=== PATIENT | female | born 1950 | race Caucasian/White ===

== ENCOUNTER 2019-05-25 09:48 | Inpatient (IN) | payer MEDICAID, MEDICARE ==
[~2019-05-25] VITALS: Ht 149.9 cm; Wt 98.2 kg
[2019-05-25] VITALS (15 sets, daily range): BP systolic 102–182; BP diastolic 63–98
[2019-05-25] MEDS ORDERED: BISACODYL 10 MG SUPP (DULCOLAX) PR PRN (13:45)
[2019-05-25] MEDS ORDERED: DICL50TA6 PO (13:45)
[2019-05-25] MEDS ORDERED: ROPI1TAB2 PO (13:45)
[2019-05-25] MEDS ORDERED: VENL150C98 PO (13:45)
[2019-05-25] MEDS ORDERED: LEVO150T6 PO (13:45)
[2019-05-25] MEDS ORDERED: ONDANSETRON 4 MG/2 ML (SDV) Z0FRAN IV PRN (13:45)
[2019-05-25] MEDS ORDERED: HYDR-3812 PO (13:45)
[2019-05-25] MEDS ORDERED: BENZONATATE 100 MG (TESSALON) CAPSULE PO PRN (13:45)
[2019-05-25] MEDS ORDERED: MELATONIN 3 MG TABLET PO PRN (13:45)
[2019-05-25] MEDS ORDERED: METF-397 PO (13:45)
[2019-05-25] MEDS ORDERED: ANTACID SUSP 30 ML UDC (MYLANTA) PO PRN (13:45)
[2019-05-25] MEDS ORDERED: ACETAMINOPHEN 325 MG TABLET PO PRN (13:45)
[2019-05-25] MEDS ORDERED: ATOR10TA66 PO (13:45)
[2019-05-25] MEDS ORDERED: FURO20TA4 PO (13:45)
[2019-05-25] MEDS ORDERED: TIZA2TAB4 PO (13:45)
[2019-05-25] MEDS ORDERED: MILK OF MAGNESIA 400 MG/5 ML 30 ML UDC PO PRN (13:45)
[2019-05-25] MEDS ORDERED: AMIT25TA9 PO (13:45)
[2019-05-25] MEDS ORDERED: LISI10TA2 PO (13:45)
[2019-05-25] MEDS ORDERED: POTA10TA10 (13:45)
[2019-05-25] MEDS ORDERED: ASPI-983 PO (13:49)
[2019-05-25 13:51] LABS: BASOPHILS % (AUTO) 0 % (0-10); EOSINOPHILS % (AUTO) 0 % (0-10); HEMATOCRIT 37 % (35-52); HEMOGLOBIN 11.8 G/DL (11.5-16.0); LYMPHOCYTES # (AUTO) 0.5 X 10^3 (1.0-4.0); LYMPHOCYTES % (AUTO) 6 % (12-44); MEAN CORPUSCULAR HEMOGLOBIN 29 PG (25-34); MEAN CORPUSCULAR HGB CONC 32 G/DL (32-36); MEAN CORPUSCULAR VOLUME 93 FL (80-99); MEAN PLATELET VOLUME 9.4 FL (7.4-10.4); MONOCYTES # (AUTO) 0.2 X 10^3 (0.0-1.0); MONOCYTES % (AUTO) 2 % (0-12); NEUTROPHILS % (AUTO) 91 % (42-75); PLATELET COUNT 236 10^3/uL (130-400); RED CELL DISTRIBUTION WIDTH 14.1 % (10.0-14.5); WHITE BLOOD COUNT 7.6 10^3/uL (4.3-11.0)
[2019-05-25] MEDS ORDERED: OMEP20CA13 PO (13:51)
[2019-05-25 14:10] LABS: BASOPHILS % (MANUAL) 1 %; LYMPHOCYTES % (MANUAL) 5 %; MONOCYTES % (MANUAL) 4 %; NEUTROPHILS % (MANUAL) 90 %
[2019-05-25 14:11] LABS: RBC MORPH NORMAL
[2019-05-25] MEDS: ENOXAPARIN 40 MG/0.4 ML (LOVENOX) SYR SC SCH (14:11)
--- NOTE | 2019-05-25 14:17 | History & Physical-Hospitalist ---
History of Present Illness HPI/Chief Complaint Patient is a 68-year-old female with a past medical history of COPD, hypertension, herniated disc who presented to the emergency department at [facility] due to hypoxia. Per report she was found to be dyspneic with a respiratory rate in the 50s with oxygen saturation of 69 for EMS. She was placed on CPAP and then transitioned to BiPAP in the emergency room. This significantly helped her work of breathing. Per daughter a chest x-ray was done last week which revealed a pleural effusion for which she was given Lasix and potassium. Despite this she continued to worsen prompting evaluation this morning. Patient states that she has had a cough for a couple of months but the shortness of breath acutely worsened this morning. She is still on BiPAP but states she is feeling better and breathing better. Source: patient Exam Limitations: clinical condition Date Seen 05/25/19 Time Seen by a Provider: 11:15 Attending Physician Alexandro Patel MD PCP No,Local Physician Referring Physician Date of Admission May 25, 2019 at 10:44 Home Medications & Allergies Home Medications Reviewed patient Home Medication Reconciliation performed by pharmacy medication reconciliations fitness technician and/or nursing. Patients Allergies have been reviewed. Allergies Allergies Coded Allergies No Known Drug Allergies (Unverified05/25/19) Past Owgksaf-Qipfcl-Lrtzyz Hx Past Med/Social Hx: Reviewed Nursing Past Med/Soc Hx Patient Social History Recent Foreign Travel: No Contact w/other who traveled: No Review of Systems ROS-Unable to Obtain: somewhat limited by BiPAP use Constitutional: No chills, No fever Respiratory: cough, dyspnea on exertion, short of breath Cardiovascular: No chest pain, No palpitations Gastrointestinal: no symptoms reported Physical Exam Physical Exam Vital Signs Vital Signs - First Documented 05/25/19 05/25/19 05/25/19 05/25/19 05/25/19 10:38 10:59 11:00 11:05 12:00 Temp 36.4 Pulse 97 Resp 22 B/P (MAP) 102/64 (77) Pulse Ox 97 O2 Delivery NIV Bilevel O2 Flow Rate 40.00 FiO2 40 Capillary Refill : Height, Weight, BMI Height: '" Weight: lbs. oz. kg; 43.83 BMI Method: General Appearance: Chronically ill, Mild Distress, Obese HEENT: PERRL/EOMI; No Scleral Icterus (L), No Scleral Icterus (R); Other (full inspection obscured by BiPAP) Respiratory: Lungs Clear, No Accessory Muscle Use, Other (on BiPAP) Cardiovascular: Regular Rate, Rhythm, No Murmur Gastrointestinal: Normal Bowel Sounds, Soft Extremity: No Calf Tenderness, No Pedal Edema Neurologic/Psychiatric: Alert, Oriented x3, Normal Mood/Affect Skin: Normal Color, Warm/Dry Results Results/Procedures Labs Laboratory Tests 05/27/19 08:59 05/28/19 05:45 Patient resulted labs reviewed. Assessment/Plan Admission Diagnosis Acute Hypoxic Respiratory Failure Admission Status: Inpatient Order (span 2 midnights) Reason for Inpatient Admission: in respiratory failure, will take more than two midnigihts to stabilize for DC Assessment and Plan Acute Hypoxic Respiratory Failure COPD exacerbation Received Steroids at OSH Started Prednisone Pulm consulted, appreciate recs- I called and spoke with Dr Gomez about patient Procalcitonin ordered- will start abx if elevated HTN Continue home meds Hypothyroidism Continue home meds Herniated discs Continue Home pain meds Clinical Quality Measures DVT/VTE Risk/Contraindication: Risk Factor Score Per Nursin RFS Level Per Nursing on Admit: 4+=Very High ALEXANDRO PATEL MD May 25, 2019 14:17
[2019-05-25] MEDS ORDERED: RT-ALBUTEROL/IPRATROPIUM 3 ML (DUONEB) VIAL INH PRN (14:30)
[2019-05-25] MEDS: RT-ALBUTEROL/IPRATROPIUM 3 ML (DUONEB) VIAL INH SCH ×2 (19:37→21:57)
[2019-05-25] MEDS: RT-ADVAIR HFA 115/21 MCG PER PUFF IH SCH (19:37)
[2019-05-25] MEDS: AMITRIPTYLINE 25 MG (ELAVIL) TAB PO SCH (20:40)
[2019-05-25] MEDS: HYDROcodone/APAP 5 MG/325 MG (LORTAB) TAB PO PRN (23:45)
[2019-05-26] VITALS (11 sets, daily range): BP systolic 111–145; BP diastolic 62–92
[2019-05-26 03:53] LABS: ABG BASE EXCESS 6.8 MMOL/L (-2.5-2.5); ABG OXYGEN SATURATION 94 % (94-100); ABG PCO2 44 MMHG (35-45); ABG PH 7.46 (7.37-7.43); ABG PO2 72 MMHG (79-93); ABG TCO2 32.4 MMOL/L (21.0-31.0)
[2019-05-26 03:55] LABS: BASOPHILS % (AUTO) 0 % (0-10); EOSINOPHILS % (AUTO) 0 % (0-10); HEMATOCRIT 34 % (35-52); HEMOGLOBIN 10.5 G/DL (11.5-16.0); LYMPHOCYTES # (AUTO) 1.4 X 10^3 (1.0-4.0); LYMPHOCYTES % (AUTO) 11 % (12-44); MEAN CORPUSCULAR HEMOGLOBIN 29 PG (25-34); MEAN CORPUSCULAR HGB CONC 31 G/DL (32-36); MEAN CORPUSCULAR VOLUME 92 FL (80-99); MEAN PLATELET VOLUME 9.6 FL (7.4-10.4); MONOCYTES # (AUTO) 1.1 X 10^3 (0.0-1.0); MONOCYTES % (AUTO) 9 % (0-12); NEUTROPHILS # (AUTO) 9.8 X 10^3 (1.8-7.8); NEUTROPHILS % (AUTO) 80 % (42-75); PLATELET COUNT 246 10^3/uL (130-400); RED CELL DISTRIBUTION WIDTH 14.2 % (10.0-14.5); WHITE BLOOD COUNT 12.2 10^3/uL (4.3-11.0)
[2019-05-26 03:56] LABS: ALLENS TEST POSITIVE; INSPIRED O2 30% BIPAP; VENTILATOR NO
[2019-05-26] MEDS: RT-ALBUTEROL/IPRATROPIUM 3 ML (DUONEB) VIAL INH SCH ×6 (03:59→22:00)
[2019-05-26 04:18] LABS: CALCIUM 8.9 MG/DL (8.5-10.1); CREATININE SERUM 0.97 MG/DL (0.60-1.30); MAGNESIUM 1.4 MG/DL (1.6-2.4); PHOSPHORUS 2.5 MG/DL (2.3-4.7); POTASSIUM 3.7 MMOL/L (3.6-5.0)
--- NOTE | 2019-05-26 05:31 | Pulmonary Consultation ---
History of Present Illness History of Present Illness Date of Consultation 05/26/19 05:26 Time Seen by Provider: 06:50 Date of Admission History of Present Illness 68yo with hx of COPD presented to [facility] ED secondary to worsening SOB and nonproductive cough. PT was found to have acute respiratory distress and hypoxia. She was transferred to [facility] ICU for close monitoring. Pt has be en requiring BiPAP which seemed to improve symptoms. No prior episodes like this in the past. PT is currently on BiPAP and it is difficult to obtain ROS. I am consulted for pulmonary/ICU management. Allergies and Home Medications Allergies Coded Allergies: No Known Drug Allergies (Unverified , 05/25/19) Home Medications Aspirin 81 Mg Tablet.dr, 81 MG PO DAILY, (Reported) Omeprazole 20 Mg Capsule.dr, 20 MG PO DAILY, (Reported) Past Ahjeohp-Aqqwkm-Xsohyn Hx Past Med/Social Hx: Reviewed Nursing Past Med/Soc Hx Patient Social History Alcohol Use: Denies Use Recreational Drug Use: No Recent Foreign Travel: No Contact w/Someone Who Travel: No Recent Infectious Disease Expo: No Review of Systems Time Seen by Provider: 06:53 Constitutional: Chills, Weakness, Malaise; No: Fever ENT: Nose congestion Respiratory: Cough, Dry, Shortness of breath, SOB with excertion, Wheezing; No: Hemoptysis Cardiovascular: Palpitations, Orthopnea, Paroxysmal Noc. Dyspnea, Edema, Lt Headedness; No: Chest Pain Gastrointestinal: Constipation; No: Nausea, Vomiting, Abdominal Pain, Diarrhea Genitourinary: No Dysuria, No Frequency, No Incontinence Musculoskeletal: neck pain, shoulder pain, back pain; No: arm pain, hand pain Skin: No: Rash, Lesions, Jaundice, Bruising, Other Neurological: Weakness; No: Numbness, Incoordination, Change in speech, Confusion, Seizures, Other Sepsis Event Evaluation Height, Weight, BMI Height: '" Weight: lbs. oz. kg; 43.83 BMI Method: Exam Exam Vital Signs Date Time Temp Pulse Resp B/P (MAP) Pulse Ox O2 Delivery O2 Flow Rate FiO2 05/26/19 04:06 71 19 138/67 (90) 94 NIV Bilevel 30.00 05/26/19 03:00 81 22 128/62 (84) 95 NIV Bilevel 30.00 05/26/19 02:00 80 19 132/65 (87) 93 NIV Bilevel 30.00 05/26/19 01:43 82 30 97 NIV Bilevel 30.00 05/26/19 01:00 79 16 122/71 (88) 95 NIV Bilevel 25.00 05/26/19 01:00 79 05/26/19 00:00 NIV Bilevel 3.00 25 05/26/19 00:00 87 13 125/62 (83) 94 NIV Bilevel 25.00 05/25/19 23:00 94 20 137/72 (93) 95 NIV Bilevel 25.00 05/25/19 22:10 94 27 92 NIV Bilevel 25.00 05/25/19 22:00 99 24 139/66 (90) Nasal Cannula 6.00 05/25/19 21:58 98 23 95 25.00 05/25/19 21:50 101 33 Nasal Cannula 6.00 05/25/19 21:00 105 29 133/81 (98) 96 Nasal Cannula 3.00 05/25/19 20:00 101 27 141/71 (94) 91 Nasal Cannula 3.00 05/25/19 20:00 94 Nasal Cannula 3.00 30 05/25/19 19:45 36.0 05/25/19 19:44 Nasal Cannula 4.00 05/25/19 19:38 93 Nasal Cannula 3.00 05/25/19 19:00 104 30 182/98 (126) 95 Nasal Cannula 3.00 05/25/19 19:00 104 05/25/19 18:00 98 30 165/88 (113) 98 Nasal Cannula 3.00 05/25/19 18:00 98 23 165/88 (113) 93 Nasal Cannula 3.00 05/25/19 17:00 96 21 163/88 (113) 99 Nasal Cannula 3.00 05/25/19 16:00 36.0 05/25/19 16:00 94 Nasal Cannula 3.00 30 05/25/19 16:00 101 34 151/88 (109) 97 Nasal Cannula 3.00 05/25/19 15:40 95 Nasal Cannula 4.00 05/25/19 15:00 100 26 164/76 (105) 94 Nasal Cannula 3.00 05/25/19 14:00 101 33 149/74 (99) 92 Nasal Cannula 3.00 05/25/19 13:48 36.4 85 98 05/25/19 13:00 96 33 123/63 (83) 94 Nasal Cannula 4.00 05/25/19 13:00 84 05/25/19 12:00 98 NIV Bilevel 30 05/25/19 12:00 36.4 05/25/19 11:05 98 NIV Bilevel 40 05/25/19 11:00 85 45 102/64 (77) 100 NIV Bilevel 50.00 05/25/19 10:59 85 22 97 40.00 05/25/19 10:38 97 I & O 05/26/19 07:00 Intake Total 650 ml Output Total 1625 ml Balance -975 ml Height & Weight Height: '" Weight: lbs. oz. kg; 43.83 BMI Method: General Appearance: Mild Distress, Obese HEENT: PERRL/EOMI, Pharynx Normal Neck: Full Range of Motion, Non Tender, Supple Respiratory: No Accessory Muscle Use, No Respiratory Distress, Crackles, Decreased Breath Sounds, Respiratory Distress (currently on BiPAP) Results Lab Laboratory Tests 05/25/19 13:47 05/26/19 03:44 Assessment/Plan Assessment/Plan Acute respiratory failure -Continue BiPAP QHS and PRN -Check BNP -Check CTA of chest r/o PE -Check echo Atelectasis -IS -SVNs -Increase activity COPDAE -SVNS -Prednisone Leukocytosis -secondary to steroids HYpomag, hypophos -replace HTN Hypothyroidism Herniated discs ADRIA ANDREWS DO May 26, 2019 05:31
[2019-05-26] MEDS ORDERED: MAGNESIUM 1 GM/100 ML IVPB 100 ML IV SCH (06:00)
[2019-05-26] MEDS ORDERED: POTASSIUM CL 10MEQ/50ML IVPB 50 ML IV SCH (06:00)
[2019-05-26] MEDS ORDERED: HOLD METFORMIN - RECEIVED CONTRAST 20 ML VIAL IV SCH (06:00)
[2019-05-26] MEDS ORDERED: NS 100 ML (IVPB) BAG IV ONE (06:00)
[2019-05-26] MEDS ORDERED: IOHEXOL 350 MG/ML 100 ML (OMNIPAQUE 350) VIAL IV ONE (06:00)
[2019-05-26] MEDS: KCL 20 MEQ TAB (K-DUR) PO SCH ×2 (06:34→07:00)
[2019-05-26] MEDS: RT-ADVAIR HFA 115/21 MCG PER PUFF IH SCH ×2 (06:36→19:00)
--- NOTE | 2019-05-26 06:58 | Diagnostic Imaging Report ---
PROCEDURE: CT angiography of the chest with contrast. TECHNIQUE: Multiple contiguous axial images were obtained through the chest after uneventful bolus administration of intravenous contrast. 3D reconstructed CTA MIP acquisitions were also performed. Auto Exposure Controls were utilized during the CT exam to meet ALARA standards for radiation dose reduction. INDICATION: Shortness of breath. FINDINGS: There are no intraluminal pulmonary arterial filling defects. There is no evidence for pulmonary arterial embolus. Thoracic aorta is patent and nonaneurysmal. There are tiny bilateral pleural effusions of 1 cm thickness. No obvious loculation. There are dependent consolidative and atelectatic changes of the posterior sulcal portions of both lower lobes. Lungs otherwise clear. There is no pneumothorax. No lymphadenopathy. The aorta is nonaneurysmal. The visualized upper abdomen nonacute. IMPRESSION: 1. Negative for PE or acute aortic disease. 2. Pleural effusions and bibasilar dependent partial atelectasis. Dictated by: Dictated on workstation # [id number]
[2019-05-26] MEDS: MAGNESIUM 1 GM/100 ML IVPB 100 ML IV SCH ×2 (06:59→07:58)
[2019-05-26] MEDS: VENlafaxine XR 75 MG (EFFEXOR XR) CAP PO SCH (07:00)
[2019-05-26] MEDS: LEVOTHYROXINE 150 MCG (LEVOTHROID) TAB PO SCH (07:01)
[2019-05-26] MEDS: predniSONE 20 MG TAB PO SCH (07:01)
[2019-05-26] MEDS: inSUlin ASPART (NovoLOG) 1 UNIT/0.01 ML (CHARGE PER UNIT) SC SCH ×4 (07:01→21:25)
[2019-05-26] MEDS: ENOXAPARIN 40 MG/0.4 ML (LOVENOX) SYR SC SCH ×2 (07:01→17:22)
[2019-05-26] MEDS: HYDROcodone/APAP 5 MG/325 MG (LORTAB) TAB PO PRN ×3 (07:59→17:29)
[2019-05-26] MEDS: rOPINIRole 1 MG (REQUIP) TABLET PO SCH (08:00)
[2019-05-26] MEDS: FUROSEMIDE 20 MG (LASIX) TAB PO SCH (08:00)
[2019-05-26] MEDS: KCL 10 MEQ TAB (MICRO K) PO SCH (08:00)
[2019-05-26] MEDS: lisINopril 10 MG (PRINIVIL) TABLET PO SCH (08:00)
--- NOTE | 2019-05-26 08:35 | Diagnostic Imaging Report ---
INDICATION: Shortness of air with COPD exacerbation. FINDINGS: There are some bibasilar pulmonary opacities, pneumonia versus atelectasis. The heart is mildly enlarged but no gross overdistention of vascularity. IMPRESSION: Basilar pulmonary opacities favor atelectasis; however, pneumonia could not be excluded. There may also be small amounts of pleural fluid. The heart size is upper limits. No pneumothorax. Dictated by: Dictated on workstation # [id number]
[2019-05-26] MEDS ORDERED: RT-ALBUINH INH (10:25)
[2019-05-26] MEDS ORDERED: BUDE10.2 INH (10:25)
[2019-05-26] MEDS ORDERED: CALC-921 PO (10:25)
[2019-05-26] MEDS ORDERED: MICO142C TP (10:25)
[2019-05-26] MEDS ORDERED: POTA10TA36 PO (10:29)
--- NOTE | 2019-05-26 10:30 | NUR ---
UPDATED MED REC WITH MAR FROM [facility].
--- NOTE | 2019-05-26 11:00 | NUR ---
Pastoral care visit.
--- NOTE | 2019-05-26 11:55 | Progress Note - Hospitalist ---
Subjective HPI/CC On Admission Date Seen by Provider: May 26, 2019 Time Seen by Provider: 08:45 shortness of breath Subjective/Events-last exam Her shortness of breath is improved. She feels like she is getting close to her baseline. She continues to feel tired and weak. She denies fevers and chills. She denies cough. She denies abdominal pain, nausea, vomiting, diarrhea, and dysuria. Objective Exam Vital Signs Vital Signs Date Time Temp Pulse Resp B/P (MAP) Pulse Ox O2 Delivery O2 Flow Rate FiO2 05/26/19 10:36 94 Nasal Cannula 1.00 05/26/19 08:00 94 27 132/76 (94) 05/26/19 04:00 25 05/25/19 19:45 36.0 Capillary Refill : General Appearance: No Apparent Distress, WD/WN HEENT: PERRL/EOMI, Pharynx Normal Neck: Normal Inspection, Supple Respiratory: Lungs Clear, Normal Breath Sounds, No Respiratory Distress Cardiovascular: Regular Rate, Rhythm, No Edema, No Murmur Gastrointestinal: Normal Bowel Sounds, Non Tender, Soft Extremity: Normal Inspection, Non Tender, No Pedal Edema Neurologic/Psychiatric: Alert, Oriented x3 Skin: Normal Color, Warm/Dry Lymphatic: No Adenopathy Results/Procedures Lab Laboratory Tests 05/25/19 13:47 05/26/19 03:44 Patient resulted labs reviewed. Imaging: Reviewed Imaging Report Assessment/Plan Assessment and Plan Assess & Plan/Chief Complaint Acute hypoxemic respiratory failure Acute exacerbation of COPD -MAT protocol -Continue steroids -BNP elevated, obtain TTE -CT without PE -WBC elevated due to steroids, procal normal, no antibiotics needed -Pulm consulted, appreciate assistance -Transfer to floor Hypomagnesemia -Mg 1.4, replacing with IV mag sulfate Diagnosis/Problems Diagnosis/Problems (1) Acute respiratory failure with hypoxemia Status: Acute (2) Acute exacerbation of chronic obstructive pulmonary disease Status: Acute (3) Hypomagnesemia Status: Acute Clinical Quality Measures DVT/VTE Risk/Contraindication: Risk Factor Score Per Nursin RFS Level Per Nursing on Admit: 4+=Very High RAJESH GABRIEL MD May 26, 2019 11:55
--- NOTE | 2019-05-26 13:02 | NUR ---
1140 PT TRANSFERRED TO ROOM 512 VIA W/C AND 02 AT 1 LITER PER NC, ALL PERSONAL BELONGINGS SENT WITH PT.
--- NOTE | 2019-05-26 14:22 | NUR ---
report taken from Hugo Ribera RN at this time.
--- NOTE | 2019-05-26 15:00 | NUR ---
1430 2 HOUR POST PRANDIAL BLOOD SUGAR CHECKED NOTED AT 431 DR GABRIEL NOTIFIED ORDERS TO GIVE 12 UNITS INSULIN PER SSI AND GIVE A ONE TIME DOSE OF LEVEMIR 10 UNITS. ORDER ENTERED 12 UNITS GIVEN BY Clementina INFANTE RN, PT AND DAUGHTER NOTIFIED OF ORDERS THIS RN CALLED Jack GUARDADO RN AND ALSO NOTIFIED. PT TO ROOM 433 VIA W/C ACCOMPANIED BY Gayla BINGHAM RN AND David INFANTE RN. REPORT GIVEN PRIOR TO Jack GUARDADO RN.
[2019-05-26] MEDS: AMITRIPTYLINE 25 MG (ELAVIL) TAB PO SCH (21:25)
[2019-05-27] MEDS: RT-ALBUTEROL/IPRATROPIUM 3 ML (DUONEB) VIAL INH SCH ×5 (02:45→22:39)
[2019-05-27 04:27] VITALS: BP 140/60
[2019-05-27] MEDS: LEVOTHYROXINE 150 MCG (LEVOTHROID) TAB PO SCH (06:27)
[2019-05-27] MEDS: predniSONE 20 MG TAB PO SCH (06:27)
[2019-05-27] MEDS: VENlafaxine XR 75 MG (EFFEXOR XR) CAP PO SCH (06:27)
[2019-05-27] MEDS: ENOXAPARIN 40 MG/0.4 ML (LOVENOX) SYR SC SCH ×2 (06:27→17:23)
[2019-05-27] MEDS: inSUlin ASPART (NovoLOG) 1 UNIT/0.01 ML (CHARGE PER UNIT) SC SCH ×4 (06:28→20:59)
[2019-05-27] MEDS: RT-ADVAIR HFA 115/21 MCG PER PUFF IH SCH ×2 (07:18→22:30)
[2019-05-27 08:00] VITALS: BP 110/84
[2019-05-27] MEDS: lisINopril 10 MG (PRINIVIL) TABLET PO SCH (08:40)
[2019-05-27] MEDS: KCL 10 MEQ TAB (MICRO K) PO SCH (08:40)
[2019-05-27] MEDS: FUROSEMIDE 20 MG (LASIX) TAB PO SCH (08:40)
[2019-05-27] MEDS: rOPINIRole 1 MG (REQUIP) TABLET PO SCH (08:40)
--- NOTE | 2019-05-27 08:47 | Pulmonary Progress Note ---
Subjective Time Seen by a Provider: 12:56 Subjective/Events-last exam Pt is doing better. No complications noted. Sepsis Event Evaluation Height, Weight, BMI Height: '" Weight: lbs. oz. kg; 43.83 BMI Method: Exam Exam Vital Signs Date Time Temp Pulse Resp B/P (MAP) Pulse Ox O2 Delivery O2 Flow Rate FiO2 05/27/19 07:31 Nasal Cannula 2.00 05/27/19 07:23 78 Room Air 05/27/19 04:27 37.0 95 20 140/60 (86) 94 Room Air 05/27/19 02:47 Room Air 05/26/19 23:37 36.1 98 20 111/76 (88) 94 Room Air 05/26/19 22:00 97 Room Air 05/26/19 20:00 Nasal Cannula 1.00 05/26/19 19:00 Nasal Cannula 1.00 05/26/19 18:58 94 Nasal Cannula 1.00 05/26/19 16:00 36.2 89 20 142/92 (109) 93 Room Air 05/26/19 12:00 36.2 93 20 119/71 (87) Nasal Cannula 1.00 05/26/19 10:36 94 Nasal Cannula 1.00 I & O 05/27/19 07:00 Intake Total 660 ml Output Total 1700 ml Balance -1040 ml Height & Weight Height: '" Weight: lbs. oz. kg; 43.83 BMI Method: General Appearance: No Apparent Distress, WD/WN HEENT: PERRL/EOMI, Pharynx Normal Neck: Normal Inspection, Supple Respiratory: Lungs Clear, Normal Breath Sounds, No Respiratory Distress Cardiovascular: Regular Rate, Rhythm, No Edema, No Murmur Extremity: Normal Inspection, Non Tender, No Pedal Edema Neurologic/Psychiatric: Alert, Oriented x3 Skin: Normal Color, Warm/Dry Lymphatic: No Adenopathy Results Lab Laboratory Tests 05/25/19 13:47 05/26/19 03:44 Assessment/Plan Assessment/Plan Acute respiratory failure -Continue BiPAP QHS and PRN Atelectasis -IS -SVNs -Increase activity COPDAE -SVNS -Prednisone Leukocytosis -secondary to steroids HTN Hypothyroidism Herniated discs ADRIA ANDREWS DO May 27, 2019 08:47
[2019-05-27 09:09] LABS: BASOPHILS % (AUTO) 0 % (0-10); EOSINOPHILS % (AUTO) 0 % (0-10); HEMATOCRIT 35 % (35-52); HEMOGLOBIN 11.1 G/DL (11.5-16.0); LYMPHOCYTES # (AUTO) 1.4 X 10^3 (1.0-4.0); LYMPHOCYTES % (AUTO) 10 % (12-44); MEAN CORPUSCULAR HEMOGLOBIN 29 PG (25-34); MEAN CORPUSCULAR HGB CONC 31 G/DL (32-36); MEAN CORPUSCULAR VOLUME 93 FL (80-99); MEAN PLATELET VOLUME 9.7 FL (7.4-10.4); MONOCYTES # (AUTO) 1.1 X 10^3 (0.0-1.0); MONOCYTES % (AUTO) 8 % (0-12); NEUTROPHILS # (AUTO) 11.6 X 10^3 (1.8-7.8); NEUTROPHILS % (AUTO) 82 % (42-75); PLATELET COUNT 270 10^3/uL (130-400); RED CELL DISTRIBUTION WIDTH 14.9 % (10.0-14.5); WHITE BLOOD COUNT 14.2 10^3/uL (4.3-11.0)
[2019-05-27 09:27] LABS: CALCIUM 9.1 MG/DL (8.5-10.1); CREATININE SERUM 0.95 MG/DL (0.60-1.30); MAGNESIUM 2.1 MG/DL (1.6-2.4); POTASSIUM 4.5 MMOL/L (3.6-5.0)
[2019-05-27 09:46] LABS: ANISOCYTOSIS SLIGHT; BAND NEUTROPHILS 1 %; BASOPHILS % (MANUAL) 0 %; EOSINOPHILS % (MANUAL) 1 %; LYMPHOCYTES % (MANUAL) 13 %; MONOCYTES % (MANUAL) 5 %; NEUTROPHILS % (MANUAL) 80 %
--- NOTE | 2019-05-27 10:37 | Occupational Therapy Eval ---
OT Evaluation-General/PLF Medical Diagnosis Admission Date May 25, 2019 at 10:44 Medical Diagnosis: COPD exacerbation Onset Date: May 25, 2019 Therapy Diagnosis Therapy Diagnosis: decreased self care skills Precautions Precautions/Isolations: Fall Prevention, Standard Precautions Safety Interventions: None Referral Physician: Sergio Medical History Pertinent Medical History: COPD, HTN, Hypothroidism Additional Medical History herniated disc, Social History Home: Long Term (Pt states she has been at [facility] in [place] since January) ADL-Prior Level of Function Therapy Code Descriptions/Definitions Functional [place] Measure: 0=Not Assessed/NA 4=Minimal Assistance 1=Total Assistance 5=Supervision or Setup 2=Maximal Assistance 6=Modified [place] 3=Moderate Assistance 7=Complete [place] Therapy Quality Codes: 6 Independent with activity with or without an assistive device 5 Patient requires set up or clean up by helper. Patient completes activity by themselves 4 Supervision or touching assist (CGA). [place] provide cues , steadying assist 3 The helper provides less than half the effort to complete the activity 2 The helper provides more than half the effort to complete the activity 1 Dependent. The helper does all the effort to complete an activity 7 Patient refused to complete or attempt activity 9 The patient did not perform the activity before the current illness or injury 88 Not attempted due to Medical conditions or safety concerns Functional Abilities and Goals: Independent: Patient completed the activities by him/herself, with or without an assistive device, with no assistance from a helper. Needed Some Help: Patient needed partial assistance from another person to complete activities. Dependent: A helper completed the activities for the patient. Unknown: Not Applicable: ADL PLOF Comments Pt reports walking with walker and assist. States she is able to complete grooming, eating, and UE dressing, but has assist with bathing and LE dressing. Reports supervision for toileting and toilet transfer. Pt states she has received therapy while at [facility] Self Care: Needed Some Help OT Current Status Subjective Pt in bed, agrees to therapy. Pt reports 7/10 pain in neck. Mental Status/Objective Patient Orientation: Person, Place Attachments: [place]ios Catheter, Oxygen Current Glasses/Contacts: Yes Hearing Aids: No Dentures/Partials: No Hand Dominance: Left Upper Extremity ROM Decreased shoulder ROM Upper Extremity Coordination Fair Upper Extremity Sensation Pt reports tingling in hands ADL-Treatment ADL-Current Pt supine to sit with assist to raise trunk. Assist to scoot to EOB. Pt required assist to don socks. Sit to stand with min assist. Pt transferred to chair with FWW, cues for safety and assist to manage O2 tubing. While seated in chair pt participated in UE assessment. Pt brushed hair and washed face with set up and increased time. Pt positioned in chair with needs met after session. Therapy Code Descriptions/Definitions Functional [place] Measure: 0=Not Assessed/NA 4=Minimal Assistance 1=Total Assistance 5=Supervision or Setup 2=Maximal Assistance 6=Modified [place] 3=Moderate Assistance 7=Complete [place] Therapy Quality Codes: 6 Independent with activity with or without an assistive device 5 Patient requires set up or clean up by helper. Patient completes activity by themselves 4 Supervision or touching assist (CGA). [place] provide cues , steadying assist 3 The helper provides less than half the effort to complete the activity 2 The helper provides more than half the effort to complete the activity 1 Dependent. The helper does all the effort to complete an activity 7 Patient refused to complete or attempt activity 9 The patient did not perform the activity before the current illness or injury 88 Not attempted due to Medical conditions or safety concerns Eating (FIM): 5 Education OT Patient Education: Rehab process Teaching Recipient: Patient Teaching Methods: Discussion Response to Teaching: Verbalize Understanding, Reinforcement Needed OT Short Term Goals Short Term Goals 1=Demonstrate adherence to instructed precautions during ADL tasks. 2=Patient will verbalize/demonstrate understanding of assistive devices/modifications for ADL. 3=Patient will improve strength/tolerance for activity to enable patient to perform ADL's. OT Cigarette Stamper Goals [facility] Goals Time Frame: Jun 10, 2019 Grooming(FIM): 5 Upper Body Dressing(FIM): 5 Toileting(FIM): 5 Toilet/Commode Transfer(FIM): 5 Additional Goals: 1-Demonstrate ADL Tasks, 2-Verbalize Understanding, 3- ImproveStrength/Ad 1=Demonstrate adherence to instructed precautions during ADL tasks. 2=Patient will verbalize/demonstrate understanding of assistive devices/modifications for ADL. 3=Patient will improve strength/tolerance for activity to enable patient to perform ADL's. OT Education/Plan Problem List/Assessment Assessment: Decreased Activ Tolerance, Decreased UE Strength, Dependent Transfers, Impaired Self-Care Skills Pt to benefit from skilled OT intervention for ADL training, transfers, and strengthening to maximize level of function and allow safe discharge plan. Discharge Recommendations Plan/Recommendations: Continue POC Treatment Plan/Plan of Care Treatment,Training & Education: Yes Patient would benefit from OT for education, treatment and training to promote independence in ADL's, mobility, safety and/or upper extremity function for ADL's. Plan of Care: ADL Retraining, Functional Mobility, UE Funct Exercise/Act Treatment Duration: Jun 10, 2019 Frequency: 5 times per week Estimated Hrs Per Day: .25 hour per day Rehab Potential: Fair Time/GCodes Start Time: 09:16 Stop Time: 09:40 Total Time Billed (hr/min): 24 Billed Treatment Time 1 visit, EVM(10minutes), ADL(14minutes) FADI REN OT May 27, 2019 10:37
[2019-05-27] MEDS ORDERED: PRD20T PO (11:30)
--- NOTE | 2019-05-27 11:36 | Consultation-Cardiology ---
HPI-Cardiology Cardiology Consultation: Date of Consultation 05/27/19 Time Seen by a Provider: 11:50 Date of Admission 05-25-19 Attending Physician Alexandro Patel MD Admitting Physician No,Local Physician Consulting Physician Marsha Cuello MD HPI: Chief Complaint: SOB Ms. Acevedo is 68 year old female who has been admitted to 433 from the [facility] facility in [place], [place] where she resides. She reports increasing SOB over the course of the 3 days prior to her ED admission. She reports the [facility] facility had her wear oxygen for 3 days. She reports they took the oxygen off of her and she continued to feel SOB. She states she does not typically wear oxygen. She reports she was then brought to the ED. She reports non-productive cough. She denies any fever or chills. She states she feels her breathing is nearly at her usual baseline. She denies any c/o CP, palpitations, syncope or near syncope. She reports intermittent bilat LE swelling. Review of Systems-Cardiology Review of Systems Constitutional: No chills, No fever, No lightheadedness Eyes: No vision change Ears/Nose/Throat: No epistaxis, No recent hearing loss Respiratory: As described under HPI Cardiovascular: As described under HPI Gastrointestinal: No constipation, No diarrhea, No nausea, No vomiting Genitourinary: No burning, No hematuria, No pain Musculoskeletal: joint pain (chronic) Skin: No rash on exposed areas, No ulcerations on exposed areas Psychiatric/Neurological: No seizure, No focal weakness, No syncope Hematologic: No bleeding abnormalities [id number] Hx Patient Social History Alcohol Use: Denies Use Recreational Drug Use: No Recent Foreign Travel: No Recent Infectious Disease Expo: No Physical Abuse Screen: No Sexual Abuse: No Past Medical History PMH As described under Assessment. Family Medical History Family Medical History: She denies any family history of CAD or SCD. Allergies and Home Medications Allergies Coded Allergies: No Known Drug Allergies (Unverified , 05/25/19) Home Medications Albuterol Sulfate 1 Puff Puff, 2 PUFF INH Q4H PRN for SHORTNESS OF BREATH, (Reported) 1 PUFF = 90 MCG Amitriptyline HCl 25 Mg Tablet, 25 MG PO HS, (Reported) Aspirin 81 Mg Tablet.dr, 81 MG PO DAILY, (Reported) Atorvastatin Calcium 10 Mg Tablet, 10 MG PO HS, (Reported) Budesonide/Formoterol Fumarate 10.2 Gm Hfa.aer.ad, 2 PUFF INH BID, (Reported) Calcium Carb/Magnesium Hydrox 1 Each Tab.chew, 1 TAB.CHEW PO Q6H PRN for INDIGESTION, (Reported) Diclofenac Sodium 50 Mg Tablet.dr, 50 MG PO BID, (Reported) Furosemide 20 Mg Tablet, 20 MG PO DAILY, (Reported) Hydrocodone/Acetaminophen 1 Each Tablet, 1 TAB PO Q8H PRN for PAIN-MODERATE, (Reported) Levothyroxine Sodium 150 Mcg Tablet, 150 MCG PO 0600, (Reported) Lisinopril 10 Mg Tablet, 10 MG PO DAILY, (Reported) Metformin HCl 500 Mg Tablet, 500 MG PO TID, (Reported) Miconazole Nitrate 142 Gm Cream..g., TP BID, (Reported) Omeprazole 20 Mg Capsule.dr, 20 MG PO DAILY, (Reported) Potassium Chloride 10 Meq Tab.er.prt, 10 MEQ PO DAILY, (Reported) Prednisone 20 Mg Tab, 40 MG PO DAILY@0700 Prescribed by: RAJESH GABRIEL on 05/27/19 1130 Ropinirole HCl 1 Mg Tablet, 1 MG PO DAILY, (Reported) Tizanidine HCl 2 Mg Tablet, 2 MG PO Q8H PRN for MUSCLE SPASMS, (Reported) Venlafaxine HCl 150 Mg Cap.er.24h, 150 MG PO BID, (Reported) Patient Home Medication List Home Medication List Reviewed: Yes Physical Exam-Cardiology Physical Exam Vital Signs/I&O 05/27/19 05/27/19 05/28/19 05/28/19 22:31 22:39 00:35 03:30 Temp 36.6 Pulse 89 Resp 21 B/P (MAP) 126/87 (100) Pulse Ox 93 94 92 95 O2 Delivery Room Air Room Air Room Air Room Air 05/28/19 05/28/19 05/28/19 05/28/19 04:20 08:00 08:17 08:26 Temp 36.6 36.8 Pulse 79 89 Resp 18 20 B/P (MAP) 134/85 (101) 162/100 (120) Pulse Ox 92 94 92 O2 Delivery Room Air Room Air Room Air Room Air 05/28/19 09:46 Temp 36.8 Pulse 85 Pulse Ox 92 FiO2 21 05/28/19 00:00 Intake Total 1680 ml Output Total 1450 ml Balance 230 ml Capillary Refill : Constitutional: AAO x 3, well-developed, well-nourished HEENT: PERRL, hearing is well preserved, oral hygience is good Neck: No carotid bruit; carotid pulses are 2 + bilaterally Respiratory: No accessory muscle use, No respiratory distress; chest expansion is symmetric, chest is bilaterally symmetric, rhonchi (scattered), other Cardiovascular: regular rate-rhythm; No JVD; S1 and S2 Gastrointestinal: No tender; soft, audible bowel sounds Rectal: deferred Extremities: swelling (mod bilat ) Neurologic/Psychiatric: grossly intact Skin: No rash on exposed areas, No ulcerations on exposed areas Data Review Labs Laboratory Tests 05/27/19 11:45: Glucometer 127H 05/27/19 16:14: Glucometer 233H 05/27/19 20:53: Glucometer 156H 05/28/19 04:26: Glucometer 94 05/28/19 05:45: White Blood Count 14.5H, Red Blood Count 3.96L, Hemoglobin 11.5, Hematocrit 37, Mean Corpuscular Volume 92, Mean Corpuscular Hemoglobin 29, Mean Corpuscular Hemoglobin Concent 31L, Red Cell Distribution Width 14.9H, Platelet Count 296, Mean Platelet Volume 9.8, Sodium Level 141, Potassium Level 4.6, Chloride Level 104, Carbon Dioxide Level 28, Anion Gap 9, Blood Urea Nitrogen 25H, Creatinine 0.87, Estimat Glomerular Filtration Rate > 60, BUN/Creatinine Ratio 29, Glucose Level 92, Calcium Level 9.3, Corrected Calcium 9.9, Total Bilirubin 0.3, Aspartate Amino Transf (AST/SGOT) 40H, Alanine Aminotransferase (ALT/SGPT) 55, Alkaline Phosphatase 71, Troponin I 0.132H, Total Protein 6.3L, Albumin 3.3, Triglycerides Level 111, Cholesterol Level 191, LDL Cholesterol Direct 91, VLDL Cholesterol 22, HDL Cholesterol 73H, Thyroid Stimulating Hormone (TSH) 0.01L, Free Thyroxine 1.90H Microbiology 05/25/19 MRSA Screen - Final, Complete MRSA not isolated Radiology NAME: [facility] REC#: [id number] PT STATUS: ADM IN : 1950 PHYSICIAN: ALEXANDRO PATEL MD ADMIT DATE: 05/25/19/[facility] Signed Date of Exam: 05/26/19 CHEST 1 VIEW, AP/PA ONLY INDICATION: Shortness of air with COPD exacerbation. FINDINGS: There are some bibasilar pulmonary opacities, pneumonia versus atelectasis. The heart is mildly enlarged but no gross overdistention of vascularity. IMPRESSION: Basilar pulmonary opacities favor atelectasis; however, pneumonia could not be excluded. There may also be small amounts of pleural fluid. The heart size is upper limits. No pneumothorax. Dictated by: Dictated on workstation # [id number] Dict: 05/26/19 0733 Trans: 05/26/19 115 Interpreted by: NILSON MALHOTRA Electronically signed by: NILSON MALHOTRA 05/26/19 115 NAME: [facility] REC#: [id number] PT STATUS: ADM IN : 1950 PHYSICIAN: ADRIA ANDREWS DO ADMIT DATE: 05/25/19/[facility] Signed Date of Exam: 05/26/19 CT ANGIO CHEST W PROCEDURE: CT angiography of the chest with contrast. TECHNIQUE: Multiple contiguous axial images were obtained through the chest after uneventful bolus administration of intravenous contrast. 3D reconstructed CTA MIP acquisitions were also performed. Auto Exposure Controls were utilized during the CT exam to meet ALARA standards for radiation dose reduction. INDICATION: Shortness of breath. FINDINGS: There are no intraluminal pulmonary arterial filling defects. There is no evidence for pulmonary arterial embolus. Thoracic aorta is patent and nonaneurysmal. There are tiny bilateral pleural effusions of 1 cm thickness. No obvious loculation. There are dependent consolidative and atelectatic changes of the posterior sulcal portions of both lower lobes. Lungs otherwise clear. There is no pneumothorax. No lymphadenopathy. The aorta is nonaneurysmal. The visualized upper abdomen nonacute. IMPRESSION: 1. Negative for PE or acute aortic disease. 2. Pleural effusions and bibasilar dependent partial atelectasis. Dictated by: Dictated on workstation # [id number] Dict: 05/26/19 0638 Trans: 05/26/19 1151 Interpreted by: MALHOTRA,NILSON D Electronically signed by: NILSON MALHOTRA 05/26/19 7008 A/P-Cardiology Assessment/Admission Diagnosis Progressive dyspnea Elevated troponin Echocardiogram of Apr [address] Parr showed LVEF 55-65%. Hypokinesis of anterior myocardium. Grade 1 diastolic dysfunction. LA mildly dilated. Mild TR. Acute diastolic AHF Acute exacerbation of COPD HTN HLD DM II Quit smoking in 1997 Clinical Quality Measures DVT/VTE Risk/Contraindication: Risk Factor Score Per Nursin RFS Level Per Nursing on Admit: 4+=Very High TIRNY LEWIS May 27, 2019 11:35
--- NOTE | 2019-05-27 11:51 | Physical Therapy Evaluation ---
PT Evaluation-General Medical Diagnosis Admission Date May 25, 2019 at 10:44 Medical Diagnosis: COPD exacerbation Onset Date: May 25, 2019 Therapy Diagnosis Therapy Diagnosis: debility/weakness Precautions Precautions/Isolations: Fall Prevention, Standard Precautions Weight Bear Status Right Lower Extremity: Right Weight Bearing/Tolerated Left Lower Extremity: Left Weight Bearing/Tolerated Referral Physician: Sergio Reason for Referral: Evaluation/Treatment Medical History Pertinent Medical History: COPD, HTN, Hypothroidism Current History Transfer from ER at [facility] with hypoxia Reviewed History: Yes Social History Home: [facility] (Pt states she has been at [facility] since [facility]) Prior/Core FIM Prior Level of Function Therapy Code Descriptions/Definitions Functional Mona Measure: 0=Not Assessed/NA 4=Minimal Assistance 1=Total Assistance 5=Supervision or Setup 2=Maximal Assistance 6=Modified Mona 3=Moderate Assistance 7=Complete Mona Therapy Quality Codes: 6 Independent with activity with or without an assistive device 5 Patient requires set up or clean up by helper. Patient completes activity by themselves 4 Supervision or touching assist (CGA). [place] provide cues , steadying assist 3 The helper provides less than half the effort to complete the activity 2 The helper provides more than half the effort to complete the activity 1 Dependent. The helper does all the effort to complete an activity 7 Patient refused to complete or attempt activity 9 The patient did not perform the activity before the current illness or injury 88 Not attempted due to Medical conditions or safety concerns Functional Abilities and Goals: Independent: Patient completed the activities by him/herself, with or without an assistive device, with no assistance from a helper. Needed Some Help: Patient needed partial assistance from another person to complete activities. Dependent: A helper completed the activities for the patient. Unknown: Not Applicable: Bed Mobility: 4 Transfers (B,C,W/C) (FIM): 4 Gait: 4 Indoor Mobility (Ambulation): Needed Some Help Stairs: Not Applicalbe Prior Devices Use: Manual wheelchair, Walker PT Evaluation-Current Subjective Patient and daughter agree to PT. Pain Numeric Pain Scale: 0-No Pain Location: No Pain Reported Objective Patient Orientation: Normal For Age Problem Solving: Fair Attachments: Oxygen (2L HF), Rios Catheter ROM/Strength ROM Lower Extremities bilateral LE WFL Strength Lower Extremities 3+/5 grossly bilateral LE Integumentary/Posture Integumentary refer to nursing notes Bladder Incontinence: Rios Cath Posture WFL Neuromuscular (Tone, Coordination, Reflexes) noted tremors Sensory Vision: Functional Hearing: Functional Hand Dominance: Left Sensation Right Lower Extremit: Impaired Sensation Left Lower Extremity: Impaired Transfers Therapy Code Descriptions/Definitions Functional Mona Measure: 0=Not Assessed/NA 4=Minimal Assistance 1=Total Assistance 5=Supervision or Setup 2=Maximal Assistance 6=Modified Mona 3=Moderate Assistance 7=Complete Mona Transfers (B, C, W/C) (FIM): 4 Scootin Rollin Supine to/from Sit: 4 Sit to/from Stand: 4 Gait Mode of Locomotion: Both Anticipated Mode of Locomotion: Both Gait (FIM): 4 Distance (FIM): 3=150 ft Distance: 150' Gait Level of Assist: 4 Gait Persons Needed: 1 Gait Assistive Device: FWW Comments/Gait Description steady, functional gait sequence with FWW Balance Sitting Static: Normal Sitting Dynamic: Normal Standing Static: Normal Standing Dynamic: Normal Assessment/Needs 68 y.o. female, will benefit from skilled PT to address functional strength and mobility to improve current LOF. Patient reports she ambulates in her room at [facility] without difficulty. Rehab Potential: Fair PT Supervisor Delivery Department Goals Mcc Goals PT Mcc Goals Time Frame: Jun 07, 2019 Transfers (B,C,W/C) (FIM): 5 Gait (FIM): 5 Gait distance (FIM): 3=150 ft Distance: 150' Gait Level of Assist: 5 Gait Assistive Device: FWW PT Plan Problem List Problem List: Activity Tolerance, Functional Strength, Safety, Transfer, Bed Mobility Treatment/Plan Treatment Plan: Continue Plan of Care Treatment Plan: Bed Mobility, Education, Functional Activity Ad, Functional Strength, Gait, Safety, Therapeutic Exercise, Transfers Treatment Duration: Jun 07, 2019 Frequency: 6 times per week Estimated Hrs Per Day: .25 hour per day Patient and/or Family Agrees t: Yes Time/GCodes Time In: 1130 Time Out: 1141 Total Billed Treatment Time: 11 [facility] ESTEPHANIE BOYD PT May 27, 2019 11:51
[2019-05-27 12:00] VITALS: BP 143/82
--- NOTE | 2019-05-27 12:41 | Discharge Summary ---
Discharge Summary Hospital Course Problems/Dx: (1) Acute respiratory failure with hypoxemia Status: Acute (2) Acute exacerbation of chronic obstructive pulmonary disease Status: Acute (3) Hypomagnesemia Status: Acute Hospital Course Date of Admission: May 25, 2019 at 10:44 Admission Diagnosis : Acute hypoxemic respiratory failure Family Physician/Provider: SylviaLocal Physician Date of Discharge: 05/27/19 Discharge Diagnosis: Acute hypoxemic respiratory failure Hospital Course: Ayesha Skinner is a 68yoF who presented from [facility] with acute hypoxemic respiratory failure and was admitted with an acute COPD exacerbation. She required BiPAP initially but this was only needed acutely. Pulmonology was consulted and will follow up with her as an outpatient in about two weeks. She underwent an echocardiogram which revealed a normal ejection fraction, but did find a grade I diastolic dysfunction and an area of hypokinesis on the anterior myocardium. She has no history of CAD or heart failure. Cardiology was consulted and she will follow up as an outpatient with Dr. Cuello. Labs and Pending Lab Test: Laboratory Tests 05/26/19 14:29: Glucometer 431*H 05/26/19 20:57: Glucometer 208H 05/27/19 05:26: Glucometer 136H 05/27/19 08:59: White Blood Count 14.2H, Red Blood Count 3.79L, Hemoglobin 11.1L, Hematocrit 35, Mean Corpuscular Volume 93, Mean Corpuscular Hemoglobin 29, Mean Corpuscular Hemoglobin Concent 31L, Red Cell Distribution Width 14.9H, Platelet Count 270, Mean Platelet Volume 9.7, Neutrophils (%) (Auto) 82H, Lymphocytes (%) (Auto) 10L , Monocytes (%) (Auto) 8, Eosinophils (%) (Auto) 0, Basophils (%) (Auto) 0, Neutrophils # (Auto) 11.6H, Lymphocytes # (Auto) 1.4, Monocytes # (Auto) 1.1H, Eosinophils # (Auto) 0.0, Basophils # (Auto) 0.0, Neutrophils % (Manual) 80, Lymphocytes % (Manual) 13, Monocytes % (Manual) 5, Eosinophils % (Manual) 1, B asophils % (Manual) 0, Band Neutrophils 1, Anisocytosis SLIGHT, Sodium Level 141, Potassium Level 4.5, Chloride Level 102, Carbon Dioxide Level 31, Anion Gap 8, Blood Urea Nitrogen 24H, Creatinine 0.95, Estimat Glomerular Filtration Rate 58, BUN/Creatinine Ratio 25, Glucose Level 124H, Calcium Level 9.1, Magnesium Level 2.1 05/27/19 11:45: Glucometer 127H Microbiology 05/25/19 MRSA Screen - Final, Complete MRSA not isolated Home Meds Active Prednisone 20 Mg Tab 40 Mg PO DAILY@0700 2 Days Reported Potassium Chloride 10 Meq Tab.er.prt 10 Meq PO DAILY Anders Antifungal (Miconazole Nitrate) 142 Gm Cream..g. TP BID Ventolin Hfa (Albuterol Sulfate) 1 Puff Puff 2 Puff INH Q4H PRN 1 PUFF = 90 MCG Rolaids Chewable Tablet (Calcium Carb/Magnesium Hydrox) 1 Each Tab.chew 1 Tab.chew PO Q6H PRN Symbicort 160-4.5 Mcg Inhaler (Budesonide/Formoterol Fumarate) 10.2 Gm Hfa.aer. ad 2 Puff INH BID Omeprazole 20 Mg Capsule. 20 Mg PO DAILY Aspirin EC (Aspirin) 81 Mg Tablet.dr 81 Mg PO DAILY Tizanidine HCl 2 Mg Tablet 2 Mg PO Q8H PRN Ropinirole HCl 1 Mg Tablet 1 Mg PO DAILY Lisinopril 10 Mg Tablet 10 Mg PO DAILY Hydrocodone-Acetamin 5-325 mg (Hydrocodone/Acetaminophen) 1 Each Tablet 1 Tab PO Q8H PRN Furosemide 20 Mg Tablet 20 Mg PO DAILY Levothyroxine Sodium 150 Mcg Tablet 150 Mcg PO 0600 Metformin HCl 500 Mg Tablet 500 Mg PO TID Venlafaxine HCl ER (Venlafaxine HCl) 150 Mg Cap.er.24h 150 Mg PO BID Diclofenac Sodium 50 Mg Tablet. 50 Mg PO BID Amitriptyline HCl 25 Mg Tablet 25 Mg PO HS Atorvastatin Calcium 10 Mg Tablet 10 Mg PO HS Assessment/Pt Instructions Take medications as prescribed. Complete course of steroids. Follow up with Dr. Gomez and Dr. Cuello. Discharge Planning: <30 minutes discharge planning Discharge Instructions Discharge Diet: No Restrictions Activity as Tolerated: Yes Consultations cardiology, pulmonology Discharge Physical Examination Vital Signs Vital Signs Date Time Temp Pulse Resp B/P (MAP) Pulse Ox O2 Delivery O2 Flow Rate FiO2 05/27/19 08:00 95 Nasal Cannula 2.00 05/27/19 08:00 36.1 64 22 110/84 (93) 05/26/19 04:00 25 General Appearance: No Apparent Distress, WD/WN, Obese HEENT: PERRL/EOMI, Pharynx Normal Respiratory: Lungs Clear, Normal Breath Sounds, No Respiratory Distress Cardiovascular: Regular Rate, Rhythm, No Edema, No Murmur Gastrointestinal: Normal Bowel Sounds, Non Tender, Soft Extremity: Normal Inspection, Non Tender, No Pedal Edema Skin: Normal Color Neurologic/Psychiatric: Alert, Oriented x3 Allergies: Coded Allergies: No Known Drug Allergies (Unverified , 05/25/19) Discharge Summary Date of Admission May 25, 2019 at 10:44 Date of Discharge Discharge Date: May 27, 2019 Discharge Time: 12:40 Admission Diagnosis Acute Hypoxic Respiratory Failure Consults/Procedures Consulations pulmonology, cardiology Discharge Diagnosis Acute hypoxemic respiratory failure, Acute exacerbation of COPD (1) Acute respiratory failure with hypoxemia Status: Acute (2) Acute exacerbation of chronic obstructive pulmonary disease Status: Acute (3) Hypomagnesemia Status: Acute (4) Left ventricular hypokinesis Status: Acute Clinical Quality Measures DVT/VTE Risk/Contraindication: Risk Factor Score Per Nursin RFS Level Per Nursing on Admit: 4+=Very High RAJESH GABRIEL MD May 27, 2019 12:41
--- NOTE | 2019-05-27 12:57 | NUR ---
CM/SS spoke with [facility] in regards to the patient's discharge. Sent all discharge information to [facility] They will transport this day after 1400.
[2019-05-27] MEDS ORDERED: ASPIRIN 81 MG CHEW (CHILDREN'S ASA) PO NR (15:00)
--- NOTE | 2019-05-27 15:59 | NUR ---
CM/SS ML-G notified that patient will stay at hospital this night due to cardiology concerns. Will notify the facility when able to discharge.
[2019-05-27 16:00] VITALS: BP 139/77
--- NOTE | 2019-05-27 17:30 | Consultation-Cardiology ---
HPI-Cardiology Cardiology Consultation: Date of Consultation 05/27/19 Time Seen by a Provider: 16:30 Date of Admission Attending Physician Marii Patel MD Admitting Physician No,Local Physician Consulting Physician WILIAN MCKINNON MD, MA, FACP, FACC, [facility], [facility] Physician requesting consult: Dr Gabriel HPI: Chief Complaint: CC: Shortness of breath HPI Ms. Skinner is 68 year old female who has been admitted to 433 from the [facility] facility in [place], [place] where she resides. She reports increasing SOB over the course of the 3 days prior to her ED admission. She reports the [facility] facility had her wear oxygen for 3 days. She reports they took the oxygen off of her and she continued to feel SOB. She states she does not typically wear oxygen. She reports she was then brought to the ED. Her daughter (who was by her bedside at time of my exam) that Ms Skinner awoke with shortness of breath and her oxygen sat was in the 60s. She reports non-productive cough. She denies any fever or chills. She states she feels her breathing is nearly at her usual baseline. She denies any c/o CP, palpitations, syncope or near syncope. She reports mild, intermittent bilat LE swelling. Review of Systems-Cardiology Review of Systems Constitutional: No chills, No fever, No lightheadedness Eyes: No vision change Ears/Nose/Throat: No epistaxis, No recent hearing loss Respiratory: As described under HPI Cardiovascular: As described under HPI Gastrointestinal: No constipation, No diarrhea, No nausea, No vomiting Genitourinary: No burning, No hematuria, No pain Musculoskeletal: joint pain (chronic) Skin: No rash on exposed areas, No ulcerations on exposed areas Psychiatric/Neurological: No seizure, No focal weakness, No syncope Hematologic: No bleeding abnormalities TQH-Pfjgvo-Mqobuc Hx Patient Social History Alcohol Use: Denies Use Recreational Drug Use: No Recent Foreign Travel: No Recent Infectious Disease Expo: No Physical Abuse Screen: No Sexual Abuse: No Past Medical History PMH As described under Assessment. Family Medical History Family Medical History: She denies any family history of CAD or SCD. Allergies and Home Medications Allergies Coded Allergies: No Known Drug Allergies (Unverified , 05/25/19) Home Medications Albuterol Sulfate 1 Puff Puff, 2 PUFF INH Q4H PRN for SHORTNESS OF BREATH, (Reported) 1 PUFF = 90 MCG Amitriptyline HCl 25 Mg Tablet, 25 MG PO HS, (Reported) Aspirin 81 Mg Tablet.dr, 81 MG PO DAILY, (Reported) Atorvastatin Calcium 10 Mg Tablet, 10 MG PO HS, (Reported) Budesonide/Formoterol Fumarate 10.2 Gm Hfa.aer.ad, 2 PUFF INH BID, (Reported) Calcium Carb/Magnesium Hydrox 1 Each Tab.chew, 1 TAB.CHEW PO Q6H PRN for INDIGESTION, (Reported) Diclofenac Sodium 50 Mg Tablet.dr, 50 MG PO BID, (Reported) Furosemide 20 Mg Tablet, 20 MG PO DAILY, (Reported) Hydrocodone/Acetaminophen 1 Each Tablet, 1 TAB PO Q8H PRN for PAIN-MODERATE, (Reported) Levothyroxine Sodium 150 Mcg Tablet, 150 MCG PO 0600, (Reported) Lisinopril 10 Mg Tablet, 10 MG PO DAILY, (Reported) Metformin HCl 500 Mg Tablet, 500 MG PO TID, (Reported) Miconazole Nitrate 142 Gm Cream..g., TP BID, (Reported) Omeprazole 20 Mg Capsule.dr, 20 MG PO DAILY, (Reported) Potassium Chloride 10 Meq Tab.er.prt, 10 MEQ PO DAILY, (Reported) Prednisone 20 Mg Tab, 40 MG PO DAILY@0700 Prescribed by: RAJESH GABRIEL on 05/27/19 1130 Ropinirole HCl 1 Mg Tablet, 1 MG PO DAILY, (Reported) Tizanidine HCl 2 Mg Tablet, 2 MG PO Q8H PRN for MUSCLE SPASMS, (Reported) Venlafaxine HCl 150 Mg Cap.er.24h, 150 MG PO BID, (Reported) Patient Home Medication List Home Medication List Reviewed: Yes Physical Exam-Cardiology Physical Exam Vital Signs/I&O 05/27/19 05/27/19 05/27/19 05/27/19 07:23 07:31 08:00 08:00 Temp 36.1 Pulse 64 Resp 22 B/P (MAP) 110/84 (93) Pulse Ox 78 95 95 O2 Delivery Room Air Nasal Cannula Nasal Cannula Nasal Cannula O2 Flow Rate 2.00 2.00 2.00 05/27/19 05/27/19 05/27/19 12:00 14:55 16:00 Temp 36.3 36.5 Pulse 99 59 Resp 20 24 B/P (MAP) 143/82 (102) 139/77 (97) Pulse Ox 98 94 94 O2 Delivery Nasal Cannula Room Air Room Air O2 Flow Rate 2.00 05/27/19 00:00 Intake Total 510 ml Output Total 900 ml Balance -390 ml Capillary Refill : Constitutional: AAO x 3, well-developed, well-nourished HEENT: PERRL, hearing is well preserved, oral hygience is good Neck: No carotid bruit; carotid pulses are 2 + bilaterally Respiratory: No accessory muscle use, No respiratory distress; chest expansion is symmetric, chest is bilaterally symmetric, rhonchi (scattered), other Cardiovascular: regular rate-rhythm; No JVD; S1 and S2 Gastrointestinal: No tender; soft, audible bowel sounds Rectal: deferred Extremities: swelling (mod bilat ) Neurologic/Psychiatric: oriented x 3, other (Coarse tremor of the head; moves all limbs equally) Skin: No rash on exposed areas, No ulcerations on exposed areas Data Review Labs Laboratory Tests 05/26/19 20:57: Glucometer 208H 05/27/19 05:26: Glucometer 136H 05/27/19 08:59: White Blood Count 14.2H, Red Blood Count 3.79L, Hemoglobin 11.1L, Hematocrit 35, Mean Corpuscular Volume 93, Mean Corpuscular Hemoglobin 29, Mean Corpuscular Hemoglobin Concent 31L, Red Cell Distribution Width 14.9H, Platelet Count 270, Mean Platelet Volume 9.7, Neutrophils (%) (Auto) 82H, Lymphocytes (%) (Auto) 10L , Monocytes (%) (Auto) 8, Eosinophils (%) (Auto) 0, Basophils (%) (Auto) 0, Neutrophils # (Auto) 11.6H, Lymphocytes # (Auto) 1.4, Monocytes # (Auto) 1.1H, Eosinophils # (Auto) 0.0, Basophils # (Auto) 0.0, Neutrophils % (Manual) 80, Lymphocytes % (Manual) 13, Monocytes % (Manual) 5, Eosinophils % (Manual) 1, Basophils % (Manual) 0, Band Neutrophils 1, Anisocytosis SLIGHT, Sodium Level 141, Potassium Level 4.5, Chloride Level 102, Carbon Dioxide Level 31, Anion Gap 8, Blood Urea Nitrogen 24H, Creatinine 0.95, Estimat Glomerular Filtration Rate 58, BUN/Creatinine Ratio 25, Glucose Level 124H, Calcium Level 9.1, Magnesium Level 2.1, Troponin I 0.148H 05/27/19 11:45: Glucometer 127H 05/27/19 16:14: Glucometer 233H Microbiology 05/25/19 MRSA Screen - Final, Complete MRSA not isolated Laboratory Tests 05/26/19 03:44 05/27/19 08:59 A/P-Cardiology Assessment/Admission Diagnosis Ac resp failure, likely multifactorial (see below) Obesity-hypoventilation Ac exac of COPD Ac roberson CHF Elevated troponin during this hospitalization, likely due to type 2 PR due to presentation with hypoxemia Echocardiogram of Apr [address] Parr showed LVEF 55-65%. Hypokinesis of anterior myocardium. Grade 1 diastolic dysfunction. LA mildly dilated. Mild TR. HTN HLD DM II LBBB Quit smoking in 1997 Discussion and Recomendations * I reviewed her echo. Study is of poor quality and not ideal for wall motion analysis. LVEF appears normal. Shortness of breath is likely multifactorial (see above) and there is no clinical evidence of acute cor syndrome * She does have cor risk factors. We recommend cor risk strat. This can be undertaken as an outpatient * Add ASA and beta-manuela to regimen * I discussed her case with Dr Gabriel on the phone this am and this evening * Keep pt in hosp overnight. If remains stable, then may d/c tomorrow * I answered pt's and her daughter's questions in detail Clinical Quality Measures DVT/VTE Risk/Contraindication: Risk Factor Score Per Nursin RFS Level Per Nursing on Admit: 4+=Very High WILIAN MCKINNON MD [facility] May 27, 2019 17:30
[2019-05-27 19:58] VITALS: BP 140/84
[2019-05-27] MEDS: AMITRIPTYLINE 25 MG (ELAVIL) TAB PO SCH (20:59)
[2019-05-28 00:35] VITALS: BP 126/87
[2019-05-28] MEDS: RT-ALBUTEROL/IPRATROPIUM 3 ML (DUONEB) VIAL INH SCH ×3 (03:30→10:48)
[2019-05-28 04:20] VITALS: BP 134/85
[2019-05-28 06:04] LABS: HEMOGLOBIN 11.5 G/DL (11.5-16.0); MEAN PLATELET VOLUME 9.8 FL (7.4-10.4); RED CELL DISTRIBUTION WIDTH 14.9 % (10.0-14.5); WHITE BLOOD COUNT 14.5 10^3/uL (4.3-11.0)
[2019-05-28] MEDS: VENlafaxine XR 75 MG (EFFEXOR XR) CAP PO SCH (06:19)
[2019-05-28] MEDS: inSUlin ASPART (NovoLOG) 1 UNIT/0.01 ML (CHARGE PER UNIT) SC SCH ×2 (06:19→11:00)
[2019-05-28] MEDS: predniSONE 20 MG TAB PO SCH (06:19)
[2019-05-28] MEDS: LEVOTHYROXINE 150 MCG (LEVOTHROID) TAB PO SCH (06:19)
[2019-05-28] MEDS: ENOXAPARIN 40 MG/0.4 ML (LOVENOX) SYR SC SCH (06:19)
[2019-05-28 06:29] LABS: ALANINE AMINOTRANSFERASE 55 U/L (0-55); ALBUMIN 3.3 GM/DL (3.2-4.5); ALKALINE PHOSPHATASE 71 U/L (40-136); BILIRUBIN,TOTAL 0.3 MG/DL (0.1-1.0); BUN/CREATININE RATIO 29; CALCIUM 9.3 MG/DL (8.5-10.1); CARBON DIOXIDE 28 MMOL/L (21-32); CHLORIDE 104 MMOL/L (98-107); CREATININE SERUM 0.87 MG/DL (0.60-1.30); GFR ESTIMATED > 60; GLUCOSE 92 MG/DL (70-105); POTASSIUM 4.6 MMOL/L (3.6-5.0); SODIUM 141 MMOL/L (135-145); TOTAL PROTEIN 6.3 GM/DL (6.4-8.2); TRIGLYCERIDES 111 MG/DL (<150)
[2019-05-28 06:30] LABS: CHOLESTEROL 191 MG/DL (< 200); HDL CHOLESTEROL 73 MG/DL (40-60); VLDL CHOLESTEROL 22 MG/DL (5-40)
[2019-05-28 08:00] VITALS: BP 162/100
--- NOTE | 2019-05-28 08:13 | NUR ---
PATIENT DID NOT GET 0600 DUONEB SVN BREATHING TX DUE TO RT NOT AVAILABLE WAS DOING BRONCH ON ONE PATIENT AND THEN EXTUBATED ANOTHER. JUST GOT FINISHED 0805
[2019-05-28] MEDS: RT-ADVAIR HFA 115/21 MCG PER PUFF IH SCH (08:17)
--- NOTE | 2019-05-28 08:17 | Pulmonary Progress Note ---
Sepsis Event Evaluation Height, Weight, BMI Height: '" Weight: lbs. oz. kg; 43.83 BMI Method: Exam Exam Vital Signs Date Time Temp Pulse Resp B/P (MAP) Pulse Ox O2 Delivery O2 Flow Rate FiO2 05/28/19 08:00 36.8 89 20 162/100 (120) 94 Room Air 05/28/19 04:20 36.6 79 18 134/85 (101) 92 Room Air 05/28/19 03:30 95 Room Air 05/28/19 00:35 36.6 89 21 126/87 (100) 92 Room Air 05/27/19 22:39 94 Room Air 05/27/19 22:31 93 Room Air 05/27/19 20:00 Room Air 05/27/19 19:58 36.4 91 24 140/84 (102) 95 Room Air 05/27/19 16:00 36.5 59 24 139/77 (97) 94 Room Air 05/27/19 14:55 94 Room Air 05/27/19 12:00 36.3 99 20 143/82 (102) 98 Nasal Cannula 2.00 I & O 05/28/19 07:00 Intake Total 1880 ml Output Total 2750 ml Balance -870 ml Height & Weight Height: '" Weight: lbs. oz. kg; 43.83 BMI Method: General Appearance: No Apparent Distress, WD/WN HEENT: PERRL/EOMI, Pharynx Normal Neck: Normal Inspection, Supple Respiratory: Lungs Clear, Normal Breath Sounds, No Respiratory Distress Cardiovascular: Regular Rate, Rhythm, No Edema, No Murmur Extremity: Normal Inspection, Non Tender, No Pedal Edema Neurologic/Psychiatric: Alert, Oriented x3 Skin: Normal Color, Warm/Dry Lymphatic: No Adenopathy Results Lab Laboratory Tests 05/27/19 08:59 05/28/19 05:45 Assessment/Plan Assessment/Plan Acute respiratory failure -Continue BiPAP QHS and PRN -Pt is now on RA -ABG - C02 44 -No fevers Atelectasis -IS -SVNs -Increase activity COPDAE -SVNS -Prednisone x 5 days then D/C Leukocytosis -secondary to steroids HTN Hypothyroidism Herniated discs Ok for discharge from pulmonary standpoint. I will see her as out pt in 1-2 wks. ADRIA ANDREWS DO May 28, 2019 08:17
--- NOTE | 2019-05-28 08:31 | NUR ---
PATIENT DID NOT GET HER 0600 DUONEB SVN BREATHING TX SO RT GAVE PATIENT A PRN DUONEB INSTEAD; AIDE AND RT MOVED PATIENT UP IN BED; PATIENT IS ON RA AND DOING GOOD; NODISTRESS NOTED AT THIS TIME
[2019-05-28] MEDS ORDERED: ASPIRIN 81 MG CHEW (CHILDREN'S ASA) PO SCH (09:00)
[2019-05-28] MEDS: rOPINIRole 1 MG (REQUIP) TABLET PO SCH (09:02)
[2019-05-28] MEDS: KCL 10 MEQ TAB (MICRO K) PO SCH (09:03)
[2019-05-28] MEDS: HYDROcodone/APAP 5 MG/325 MG (LORTAB) TAB PO PRN (09:03)
[2019-05-28] MEDS: FUROSEMIDE 20 MG (LASIX) TAB PO SCH (09:03)
[2019-05-28] MEDS: lisINopril 10 MG (PRINIVIL) TABLET PO SCH (09:03)
[2019-05-28 09:46] VITALS: BP 162/100
--- NOTE | 2019-05-28 09:59 | Progress Note - Cardiology ---
Cardiology SOAP Progress Note Subjective: Sitting up in bed. Daughter at the bedside. Pt states she feels her breathing is unchanged from yesterday. No c/o CP or palpitations. Objective: I&O/Vital Signs 05/28/19 05/28/19 05/28/19 05/28/19 03:30 04:20 08:00 08:17 Temp 36.6 36.8 Pulse 79 89 Resp 18 20 B/P (MAP) 134/85 (101) 162/100 (120) Pulse Ox 95 92 94 92 O2 Delivery Room Air Room Air Room Air Room Air 05/28/19 05/28/19 05/28/19 05/28/19 08:26 09:46 10:48 12:00 Temp 36.8 36.5 Pulse 85 87 Resp 20 B/P (MAP) 144/82 (102) Pulse Ox 92 94 94 O2 Delivery Room Air Room Air Room Air FiO2 21 05/28/19 00:00 Intake Total 1680 ml Output Total 1450 ml Balance 230 ml Constitutional: AAO x 3, well-developed, well-nourished Respiratory: No accessory muscle use, No respiratory distress; chest expansion is symmetric, chest is bilaterally symmetric, rhonchi (scattered), other Cardiovascular: regular rate-rhythm; No JVD; S1 and S2 Gastrointestional: No tender; soft, audible bowel sounds Extremities: swelling (mod bilat ) Neurologic/Psychiatric: oriented x 3, other (Coarse tremor of the head; moves all limbs equally) Skin: No rash on exposed areas, No ulcerations on exposed areas Results/Procedures: Labs Laboratory Tests 05/27/19 16:14: Glucometer 233H 05/27/19 20:53: Glucometer 156H 05/28/19 04:26: Glucometer 94 05/28/19 05:45: White Blood Count 14.5H, Red Blood Count 3.96L, Hemoglobin 11.5, Hematocrit 37, Mean Corpuscular Volume 92, Mean Corpuscular Hemoglobin 29, Mean Corpuscular Hemoglobin Concent 31L, Red Cell Distribution Width 14.9H, Platelet Count 296, Mean Platelet Volume 9.8, Sodium Level 141, Potassium Level 4.6, Chloride Level 104, Carbon Dioxide Level 28, Anion Gap 9, Blood Urea Nitrogen 25H, Creatinine 0.87, Estimat Glomerular Filtration Rate > 60, BUN/Creatinine Ratio 29, Glucose Level 92, Calcium Level 9.3, Corrected Calcium 9.9, Total Bilirubin 0.3, Aspartate Amino Transf (AST/SGOT) 40H, Alanine Aminotransferase (ALT/SGPT) 55, Alkaline Phosphatase 71, Troponin I 0.132H, Total Protein 6.3L, Albumin 3.3, Triglycerides Level 111, Cholesterol Level 191, LDL Cholesterol Direct 91, VLDL Cholesterol 22, HDL Cholesterol 73H, Thyroid Stimulating Hormone (TSH) 0.01L, Free Thyroxine 1.90H 05/28/19 10:20: Troponin I 0.106H 05/28/19 11:13: Glucometer 172H Microbiology 05/25/19 MRSA Screen - Final, Complete MRSA not isolated A/P: Assessment: Ac resp failure, likely multifactorial (see below) Obesity-hypoventilation Ac exac of COPD Ac roberson CHF Elevated troponin during this hospitalization, likely due to type 2 NV due to presentation with hypoxemia Echocardiogram of Apr [address] Parr showed LVEF 55-65%. Hypokinesis of anterior myocardium. Grade 1 diastolic dysfunction. LA mildly dilated. Mild TR. HTN HLD DM II LBBB Quit smoking in 1997 Hyperthyroidism indicated by TSH - management per medical services Plan: * Dr. Cuello has reviewed her echo. Study is of poor quality and not ideal for wall motion analysis. LVEF appears normal. Shortness of breath is likely multifactorial (see above) and there is no clinical evidence of acute cor syndrome * She does have cor risk factors. We recommend cor risk strat. This can be undertaken as an outpatient * Continue ASA and beta-manuela * Dr. Cuello has discussed her case with Dr Hill on the phone this am and this evening * Repeat troponin this morning, if essentially unchanged discharge home today with out pt f/u Physician Assessment Physician Assessment Shortness of breath much improved. Wishes to go home No cp or palp or syncope Lungs: fair bilat air entry Cor: reg Ext: mild non-pitting edema of the legs Troponin: declining A&R * As documented in our note above that I updated (italics) and as noted below * I discussed her case with Dr Hill this am * I answered her and her daughter's questions * Outpt f/u is advised * We have also advised sleep studies. She states she will consider TRINY LEWIS May 28, 2019 09:59 WILIAN CUELLO MD FACP [facility] May 28, 2019 14:18
--- NOTE | 2019-05-28 11:23 | Occupational Ther Daily Note ---
OT Current Status-Daily Note Subjective RT and family in room upon OT arrival. Pt alert sitting in bed. Pt agrees to therapy. No c/o of pain. Mental Status/Objective Patient Orientation: Person, Place, Time, Situation Therapy Code Descriptions/Definitions Functional [place] Measure: 0=Not Assessed/NA 4=Minimal Assistance 1=Total Assistance 5=Supervision or Setup 2=Maximal Assistance 6=Modified [place] 3=Moderate Assistance 7=Complete [place] Attachments: Rios Catheter, IV ADL-Treatment Transfers (B, C, W/C) (FIM): 4 (Pt requires Min Assist with legs to sit EOB. Pt requires FWW. Pt requires CGA while pt is walking due to safety conerns. ) Toilet/Commode Transfer (FIM): 4 (Pt required FWW and grab bar. CGA while goes from stand to sit. ) Other Treatment Monitored O2 stats for RT while pt ambulated to bathroom. Stats stayed at 95%. Pt transferred to chair. Pt sitting in chair, call light and phone in room, all needs met in room. OT Short Term Goals Short Term Goals 1=Demonstrate adherence to instructed precautions during ADL tasks. 2=Patient will verbalize/demonstrate understanding of assistive mahendra beatrice/modifications for ADL. 3=Patient will improve strength/tolerance for activity to enable patient to perform ADL's. OT Custodial Goals Education Administrator Goals Time Frame: Jun 10, 2019 Grooming(FIM): 5 Upper Body Dressing(FIM): 5 Toileting(FIM): 5 Toilet/Commode Transfer(FIM): 5 Additional Goals: 1-Demonstrate ADL Tasks, 2-Verbalize Understanding, 3-ImproveStrength/Ad 1=Demonstrate adherence to instructed precautions during ADL tasks. 2=Patient will verbalize/demonstrate understanding of assistive devices/modifications for ADL. 3=Patient will improve strength/tolerance for activity to enable patient to perform ADL's. OT Education/Plan Problem List/Assessment Assessment: Decreased Activ Tolerance, Decreased UE Strength, Impaired Self- Care Skills Pt to benefit from skilled OT intervention for ADL training, transfers, and strengthening to maximize level of function and allow safe discharge plan. Discharge Recommendations Plan/Recommendations: Continue POC Treatment Plan/Plan of Care Patient would benefit from OT for education, treatment and training to promote independence in ADL's, mobility, safety and/or upper extremity function for ADL' s. Plan of Care: ADL Retraining, Functional Mobility, UE Funct Exercise/Act Treatment Duration: Jun 10, 2019 Frequency: 5 times per week Estimated Hrs Per Day: .25 hour per day Rehab Potential: Fair Time/GCodes Start Time: 10:55 Stop Time: 11:11 Total Time Billed (hr/min): 16 Billed Treatment Time 1 visit- FA 1 (16 min) ZOHAIB HARMAN May 28, 2019 11:23
--- NOTE | 2019-05-28 11:30 | NUR ---
PATIENT WAS ON RA AND SATTING 94%; PATIENT GOT UP WALKED TO THE BATHROOM AND SAT DOWN ON THE STOOL AND GOT BACK UP AND WENT BACK TO BED AND DID NOT DROP BELOW 92% ON RA: PATIENT DID NOT NEED O2 AT REST OR ON EXERTION
[2019-05-28] MEDS ORDERED: METO-387 PO (11:32)
[2019-05-28] MEDS ORDERED: ASPI-999 PO (11:32)
--- NOTE | 2019-05-28 11:51 | Physical Therapy Daily Note ---
PT Daily Note-Current Subjective Patient in recliner pre tx, agrees to PT, no complaints of pain. Appearance Patient in recliner post tx with nurse call, phone, tray, legs elevated and on pillow, family in the room. Mental Status Patient Orientation: Person, Place Attachments: Rios Catheter Transfers Therapy Quality Codes: 6 Independent with activity with or without an assistive device 5 Patient requires set up or clean up by helper. Patient completes activity by themselves 4 Supervision or touching assist (CGA). Keatchie provide cues , steadying assist 3 The helper provides less than half the effort to complete the activity 2 The helper provides more than half the effort to complete the activity 1 Dependent. The helper does all the effort to complete an activity 7 Patient refused to complete or attempt activity 9 The patient did not perform the activity before the current illness or injury 88 Not attempted due to Medical conditions or safety concerns Transfers (B, C, W/C): 4 Sit to Stand (QC): 4 Chair/[id number] Xfer(QC): 4 CGA Weight Bearing Right Lower Extremity: Right Weight Bearing/Tolerated Left Lower Extremity: Left Weight Bearing/Tolerated Gait Training Distance: 100' Walk 10 feet (QC): 4 Walk 50 ft with 2 Turns(QC): 4 Gait Persons Needed: 1 Gait Assistive Device: FWW CGA, slow but steady ambulation Exercises Seated Therapy Exercises: Ankle pumps, Long arc quads Seated Reps: 15 Treatments LE exercise, ambulation Assessment Current Status: Fair Progress Patient has some twitching of the neck PT Assistant Women'S Basketball Coach Goals Assistant Women'S Basketball Coach Goals PT Assistant Women'S Basketball Coach Goals Time Frame: Jun 07, 2019 Distance: 150' Gait Level of Assist: 5 Gait Assistive Device: FWW PT Plan Problem List Problem List: Activity Tolerance, Functional Strength, Safety, Balance, Gait, Transfer, Bed Mobility Treatment/Plan Treatment Plan: Continue Plan of Care Treatment Plan: Bed Mobility, Education, Functional Activity Ad, Functional Strength, Gait, Safety, Therapeutic Exercise, Transfers Treatment Duration: Jun 07, 2019 Frequency: 6 times per week Estimated Hrs Per Day: .25 hour per day Patient and/or Family Agrees t: Yes Safety Risks/Education Patient Education: Gait Training, Transfer Techniques, Correct Positioning, Safety Issues Teaching Recipient: Patient Teaching Methods: Demonstration, Discussion Response to Teaching: Reinforcement Needed Time/GCodes Time In: 1128 Time Out: 1142 Total Billed Treatment Time: 14 Total Billed Treatment 1 visit GT 14' KRTEK,ARIES PT May 28, 2019 11:51
[2019-05-28] MEDS ORDERED: LEVO125T6 PO (11:58)
--- NOTE | 2019-05-28 11:59 | Discharge Summary ---
Discharge Summary Reconcile Patient Problems Problems Reviewed?: Yes Hospital Course Hospital Course Date of Admission: May 25, 2019 at 10:44 Admission Diagnosis : Acute hypoxic respiratory failure Family Physician/Provider: No,Local Physician Date of Discharge: 05/28/19 Discharge Diagnosis: Acute hypoxic respiratory failure Hospital Course: Ayesha Skinner is a 68yoF who presented from [facility] with acute hypoxemic respiratory failure and was admitted with an acute COPD exacerbation. She required BiPAP initially but this was only needed acutely. Pulmonology was consulted and will follow up with her as an outpatient in about two weeks. She underwent an echocardiogram which revealed a normal ejection fraction, but did find a grade I diastolic dysfunction and an area of hypokinesis on the anterior myocardium. This area of hypokinesis was thought to be due to a LBBB. She has no history of CAD or heart failure. Her troponin was elevated and was thought to be due to a type 2 NSTEMI. Cardiology was consulted and she will follow up as an outpatient with Dr. Cuello. Her TSH was suppressed and appears to be due to overreplacement of her levothyroxine. We decreased her dose and recommend repeat TSH in about 6-[address] Lamar. Labs and Pending Lab Test: Laboratory Tests 05/27/19 16:14: Glucometer 233H 05/27/19 20:53: Glucometer 156H 05/28/19 04:26: Glucometer 94 05/28/19 05:45: White Blood Count 14.5H, Red Blood Count 3.96L, Hemoglobin 11.5, Hematocrit 37, Mean Corpuscular Volume 92, Mean Corpuscular Hemoglobin 29, Mean Corpuscular Hemoglobin Concent 31L, Red Cell Distribution Width 14.9H, Platelet Count 296, Mean Platelet Volume 9.8, Sodium Level 141, Potassium Level 4.6, Chloride Level 104, Carbon Dioxide Level 28, Anion Gap 9, Blood Urea Nitrogen 25H, Creatinine 0.87, Estimat Glomerular Filtration Rate > 60, BUN/Creatinine Ratio 29, Glucose Level 92, Calcium Level 9.3, Corrected Calcium 9.9, Total Bilirubin 0.3, Aspartate Amino Transf (AST/SGOT) 40H, Alanine Aminotransferase (ALT/SGPT) 55, Alkaline Phosphatase 71, Troponin I 0.132H, Total Protein 6.3L, Albumin 3.3, Triglycerides Level 111, Cholesterol Level 191, LDL Cholesterol Direct 91, VLDL Cholesterol 22, HDL Cholesterol 73H, Thyroid Stimulating Hormone (TSH) 0.01L, Free Thyroxine 1.90H, Free Triiodothyronine [Pending] 05/28/19 10:20: Troponin I 0.106H 05/28/19 11:13: Glucometer 172H Microbiology 05/25/19 MRSA Screen - Final, Complete MRSA not isolated Home Meds Active Levothyroxine Sodium 125 Mcg Tablet 125 Mcg PO DAILY 30 Days Aspirin 81 Mg Tab.chew 81 Mg PO DAILY Metoprolol Succinate 25 Mg Tab.er.24h 25 Mg PO DAILY Prednisone 20 Mg Tab 40 Mg PO DAILY@0700 2 Days Reported Potassium Chloride 10 Meq Tab.er.prt 10 Meq PO DAILY Anders Antifungal (Miconazole Nitrate) 142 Gm Cream..g. TP BID Ventolin Hfa (Albuterol Sulfate) 1 Puff Puff 2 Puff INH Q4H PRN 1 PUFF = 90 MCG Rolaids Chewable Tablet (Calcium Carb/Magnesium Hydrox) 1 Each Tab.chew 1 Tab.chew PO Q6H PRN Symbicort 160-4.5 Mcg Inhaler (Budesonide/Formoterol Fumarate) 10.2 Gm Hfa.aer.ad 2 Puff INH BID Omeprazole 20 Mg Capsule. 20 Mg PO DAILY Aspirin EC (Aspirin) 81 Mg Tablet. 81 Mg PO DAILY Tizanidine HCl 2 Mg Tablet 2 Mg PO Q8H PRN Ropinirole HCl 1 Mg Tablet 1 Mg PO DAILY Lisinopril 10 Mg Tablet 10 Mg PO DAILY Hydrocodone-Acetamin 5-325 mg (Hydrocodone/Acetaminophen) 1 Each Tablet 1 Tab PO Q8H PRN Furosemide 20 Mg Tablet 20 Mg PO DAILY Metformin HCl 500 Mg Tablet 500 Mg PO TID Venlafaxine HCl ER (Venlafaxine HCl) 150 Mg Cap.er.24h 150 Mg PO BID Diclofenac Sodium 50 Mg Tablet. 50 Mg PO BID Amitriptyline HCl 25 Mg Tablet 25 Mg PO HS Atorvastatin Calcium 10 Mg Tablet 10 Mg PO HS Instructions to Patient/Family Assessment/Instructions Take medications as prescribed. Complete short course of prednisone. Begin taking aspirin and metoprolol for your heart. Follow up with Dr. Cuello. Decrease your dose of Levothyroxine. You will need a repeat thyroid check in 6-8 weeks. Follow up with Dr. Lamar. [facility] I certify that SNF services are required to be given on an inpatient basis because of the above named patient's need for usp care on a continuing basis for the conditions(s) for which he/she was receiving inpatient hospital services prior to his/her transfer to the SNF. Assisted Facility Order: Nursing Services, Physical Therapy-Evaluate & Treat Oxygen Delivery Method: Room Air Discharge Diet: No Restrictions Daily Activity as Tolerated: Yes Resuscitation Status: Full Code Rajesh Gabriel May 28, 2019 11:58 Discharge Physical Exam General: Alert, Oriented X3, Cooperative HEENT: Atraumatic, EOMI Lungs: Clear to Auscultation, Normal Air Movement Heart: Regular Rate, No Murmurs Abdomen: Normal Bowel Sounds, Soft, No Tenderness Extremities: No Edema Skin: No Rashes, No Significant Lesion Neuro: Normal Speech, Other (alert and oriented) Psych/Mental Status: Mental Status NL, Mood NL RAJESH GABRIEL MD May 28, 2019 11:59
[2019-05-28 12:00] VITALS: BP 144/82
--- NOTE | 2019-05-28 13:03 | NUR ---
CM/ERIKA spoke with medical brandi [facility] and let them know the discharge orders were in and faxed to them. [facility] [place] did not have a leaf size picker time but are working on setting up transportation. Addendum: 05/28/19 at 1306 by MAURA JAMES reviewed / approved
--- NOTE | 2019-05-28 14:00 | NUR ---
Medical John [facility] will milk pickup driver around 3p.m. today. Addendum: 05/28/19 at 1409 by MAURA JAIMES SS reviewed / approved
[2019-05-28 17:12] VITALS: BP 144/82
== END 2019-05-28 17:14 | DRG 189 ==
LOC: ICU 10:44 → CSD 05-26 11:31 → 4TH 05-26 14:25
PROVIDERS: ADMIT Family Medicine; ATTEND Family Medicine
DX: J96.01 Acute respiratory failure with hypoxia (principal); J44.1 Chronic obstructive pulmonary disease with (acute) exacerbation; J98.11 Atelectasis; Z68.41 Body mass index [BMI] 40.0-44.9, adult; I11.0 Hypertensive heart disease with heart failure; I50.31 Acute diastolic (congestive) heart failure; E66.2 Morbid (severe) obesity with alveolar hypoventilation; I21.A1 Myocardial infarction type 2; E03.9 Hypothyroidism, unspecified; D72.829 Elevated white blood cell count, unspecified; T38.0X5A Adverse effect of glucocorticoids and synthetic analogues, initial encounter; E83.42 Hypomagnesemia; M50.20 Other cervical disc displacement, unspecified cervical region; M25.519 Pain in unspecified shoulder; I07.1 Rheumatic tricuspid insufficiency; E78.5 Hyperlipidemia, unspecified; E11.9 Type 2 diabetes mellitus without complications; I44.7 Left bundle-branch block, unspecified; Z87.891 Personal history of nicotine dependence
CPT/HCPCS: 36415; 71045; 71275; 80048; 80053; 80061; 82805; 82962; 83735; 83880; 84100; 84145; 84439; 84443; 84481; 84484; 85007; 85025; 85027; 87081; 93005; 93306; 94640; 94660; 94760; 94761

== ENCOUNTER → 2019-10-23 | Outpatient (CLI) | payer MEDICAID, MEDICARE ==
[~2019-10-23] MED LIST: ACHD5005 PO; AMIT25TA9 PO; ASPI-983 PO; ASPI-999 PO; ATOR10TA66 PO; BUDE10.2 INH; CALC-921 PO; DICL50TA6 PO; FURO20TA4 PO; LEVO125T6 PO; LEVO150T6 PO; LISI10TA2 PO; METF-397 PO; MICO142C TP; MTP25TSR PO; OMEP20CA18 PO; POTA10TA10; POTA10TA36 PO; PRD20T PO; ROPI1TAB PO; RT-ALBUINH INH; TIZA2TAB4 PO; VENL150C98 PO
--- NOTE | 2019-10-23 10:14 | Diagnostic Imaging Report ---
PROCEDURE: MR imaging of the brain without contrast. TECHNIQUE: Multiplanar, multisequence MR imaging of the brain was performed without contrast. INDICATION: Headaches. Hallucinations. Delirium. COMPARISON: none Findings: No acute ischemia, mass, or hemorrhage. Scattered chronic microvascular disease is seen in the periventricular and subcortical white matter. The ventricles, cortical sulci, and basilar cisterns are symmetric and unremarkable. There is flattening of the pituitary. The major intracranial flow voids are intact. The brainstem and posterior fossa are unremarkable. The paranasal sinuses and mastoid air cells demonstrate normal signal characteristics. The globes and orbits are symmetric and unremarkable. The scalp and calvarium have a normal appearance. Impression: 1. No acute ischemia, mass, or hemorrhage. 2. Scattered chronic microvascular disease. Dictated by: Dictated on workstation # [id number]
== END ==
LOC: RAD 08:40
PROVIDERS: ATTEND Physician Assistant
DX: R44.3 Hallucinations, unspecified (principal)
CPT/HCPCS: 70551

== ENCOUNTER → 2019-10-24 | Outpatient (CLI) | payer MEDICARE, MEDICAID ==
--- NOTE | 2019-10-24 14:19 | Diagnostic Imaging Report ---
PROCEDURE: MR angiography of the brain without the use of contrast. TECHNIQUE: 3D [id number] non contrast enhanced MR angiography of the head was performed. A source data was reformatted into rotating MIP projections. INDICATION: Headaches. Hallucinations. COMPARISON: MRI brain performed on 10/23/2019. FINDINGS: This is a limited study due to involuntary motion. There is appropriate flow-related enhancement within the intracranial segments of the internal carotid arteries. There is no significant stenosis. Carotid terminus unremarkable. There is appropriate flow-related enhancement within the M1 segments of the bilateral middle cerebral arteries. The bilateral A1 segments of the anterior cerebral arteries are visualized and have a normal appearance. The more distal anterior cerebral arteries are not well seen. The basilar artery is visualized and has a normal appearance. The bilateral vertebral arteries and PICA are not well evaluated. The P1 and P2 segments of the posterior cerebral arteries have an unremarkable appearance. There is no evidence of intracranial aneurysm formation in the visualized arterial structures of the brain.. There is no evidence of vascular malformation. IMPRESSION: 1. Limited MR angiogram of the head due to involuntary patient motion. There is no MR evidence of hemodynamically significant stenosis or vessel occlusion in the visualized [place]. No aneurysm formation or findings to suggest a vascular malformation demonstrated. Dictated by: Dictated on workstation # [id number]
== END ==
LOC: RAD 12:56
PROVIDERS: ATTEND Anesthesiology Pain Medicine
DX: R44.3 Hallucinations, unspecified (principal)
CPT/HCPCS: 70544

== ENCOUNTER 2020-02-05 10:44 | Emergency (ER) | payer MEDICARE, MEDICAID ==
[~2020-02-05] VITALS: Ht 147.3 cm; Wt 86.3 kg
[~2020-02-05 10:44] MED LIST changes: -TIZA2TAB4 PO; +TIZA2TAB7 PO
[2020-02-05] MEDS ORDERED: NS IV 1000 ML 1,000 ML IV SCH (11:18)
[2020-02-05 11:42] LABS: BASOPHILS % (AUTO) 0 % (0-10); EOSINOPHILS % (AUTO) 2 % (0-10); HEMATOCRIT 30 % (35-52); HEMOGLOBIN 9.7 G/DL (11.5-16.0); LYMPHOCYTES % (AUTO) 21 % (12-44); MEAN CORPUSCULAR HEMOGLOBIN 30 PG (25-34); MEAN CORPUSCULAR HGB CONC 32 G/DL (32-36); MEAN CORPUSCULAR VOLUME 92 FL (80-99); MEAN PLATELET VOLUME 8.4 FL (7.4-10.4); MONOCYTES % (AUTO) 8 % (0-12); NEUTROPHILS # (AUTO) 8.3 X 10^3 (1.8-7.8); NEUTROPHILS % (AUTO) 69 % (42-75); PLATELET COUNT 452 10^3/uL (130-400); RED CELL DISTRIBUTION WIDTH 14.9 % (10.0-14.5); WHITE BLOOD COUNT 12.1 10^3/uL (4.3-11.0)
[2020-02-05 11:43] LABS: BASOPHILS # (AUTO) 0.1 10^3/uL (0.0-0.1); EOSINOPHILS # (AUTO) 0.2 10^3/uL (0.0-0.3); LYMPHOCYTES # (AUTO) 2.5 X 10^3 (1.0-4.0)
[2020-02-05 11:53] LABS: ALBUMIN 3.2 GM/DL (3.2-4.5); POTASSIUM 4.8 MMOL/L (3.6-5.0)
[2020-02-05 11:54] LABS: CALCIUM 8.9 MG/DL (8.5-10.1)
[2020-02-05 11:56] LABS: TOTAL PROTEIN 7.2 GM/DL (6.4-8.2)
[2020-02-05 11:57] LABS: BILIRUBIN,TOTAL 0.3 MG/DL (0.1-1.0)
[2020-02-05 11:59] LABS: CREATININE SERUM 1.32 MG/DL (0.60-1.30)
--- OUTSIDE RECORDS SUMMARY | 2020-02-05 12:21 | XMS REPORT | Continuity of Care Document ---
Demographics Preferred Language Unknown Marital Status Unknown Jew Affiliation Unknown Race Unknown Ethnic Group Unknown Author Organization Unknown Address Unknown Phone Unavailable Allergies Active Description Code Type Severity Reaction Onset Reported/Identified Relationship to Patient Clinical Status Yes NO KNOWN DRUG ALLERGIES UNKNOWN NO KNOWN DRUG ALLERG Yes NO KNOWN DRUG ALLERGIES UNKNOWN UNKNOWN Yes No Known Drug Allergies [id number] Drug Allergy Unknown N/A 05/25/2019 Medications Medication Packaging Start Date St op Date Route Dosage Sig ASA 81MG CHEWABLE TAB 81 MG (BABY ASPIRIN) MG 01/25/2017 01/25/2017 ONCE&2056 HYDROCODONE/APAP 5MG/325MG T AB 5 MG/325MG (CHRISTO-TAB 5/325) TAB 01/29/2019 02/08/2019 PRN Q4H VENLAFAXINE XR CAP 75 MG (EFFEXOR XR) Dose(s) 01/29/2019 02/05/2019 BID&0800,2000 METFORMIN TAB 500 MG (GLUCOPHAGE) Dose(s) 01/29/2019 02/05/2019 BID&0800,2000 AMITRIPTYLINE TAB 25 MG (ELAVIL) Dose(s) 01/29/2019 02/04/2019 QHS&2100 INSULIN ASPART PEN INJ 100 U NITS/CC (NOVOLOG FLEXPEN) 01/29/2019 02/28/2019 ACHS&0630,1130,1630,2100 TIZANIDINE TAB 4 MG (ZANAFLEX) Dose(s) 01/29/2019 02/05/2019 PRN Q8H CALMOSEPTINE OINT TUBE (RISAMINE OINT) keila 01/30/2019 02/06/2019 PRN QID CLOTRIMAZOLE CREAM CRM 1 % (LOTRIMIN CREAM ) keila 01/30/2019 02/05/2019 BID&0800,2000 Nystatin top powder (Mycostatin) APPLICATION 01/30/2019 02/12/2019 BID&0800,2000 LEVOTHYROXINE TAB 100 MCG (SYNTHROID) MCG 01/30/2019 02/28/2019 Daily&0900 LISINOPRIL TAB 10 MG (ZESTRIL) Dose(s) 01/30/2019 02/28/2019 Daily&0900 ASPIRIN ENTERIC COATED TAB 8 1 MG (BABY ASPIRIN EC) Dose(s) 01/30/2019 02/05/2019 Daily&0900 ENOXAPARIN SYRINGE INJ 40 MG (LOVENOX SYRI NGE) MG 01/30/2019 02/08/2019 Daily&0900 ROPINIROLE TAB 1 MG (REQUIP) Dose(s) 01/30/2019 02/05/2019 Daily&0900 FUROSEMIDE VIAL INJ 40 MG (LASIX VIAL) MG 05/25/2019 05/25/2019 ONCE&0744 NITROGLYCERIN OINT UD OINT 2 % (NITRO-BID UD) keila 05/25/2019 05/25/2019 ONCE&0744 MORPHINE SYRINGE INJ 2 MG/CC MG 05/25/2019 05/25/2019 PRN ONCE IPRATROPIUM/ALBUTEROL INH SO LN (DUO-NEB INH SOLN) MLS 05/25/2019 05/25/2019 ONCE&0917 METHYLPREDNISOLONE VIAL INJ 125 MG/2CC (SOLU-MEDROL VIAL) MG 05/25/2019 05/25/2019 ONCE&0917 ACETAMINOPHEN ORAL TABLET 325mg(Tylenol) MG 08/07/2019 08/07/2019 ONCE&1056 AMITRIPTYLINE TAB 25 MG (ELAVIL) MG 08/07/2019 09/06/2019 QHS&2100 NORMAL SALINE 1000CC IV BAG INJ 0.9 % (NS 1000CC IV BAG) ml 08/07/2019 08/22/2019 CONTINUOUSEVERY 0 Hour HYDROCODONE/APAP 5MG/325MG T AB 5 MG/325MG (CHRISTO-TAB 5/325) TAB 08/07/2019 09/06/2019 PRN Q6H LORAZEPAM 1CC VIAL INJ 2 MG/CC (ATIVAN VIA L) MG 08/08/2019 08/11/2019 PRN Q4H TIZANIDINE TAB 4 MG (ZANAFLEX) MG 08/08/2019 08/15/2019 PRN Q8H BUDESONIDE/FORMOTEROL INH 16 0 /4.5MCG (SYMBICORT) PUFF 08/08/2019 09/06/2019 BID&0800,2000 ROPINIROLE TAB 1 MG (REQUIP) MG 08/08/2019 09/06/2019 Daily&0900 POLYETHYLENE GLYCOL POWDER U D PWD (MIRALAX 17GM UNIT DOSE PAKS) gm 08/08/2019 09/07/2019 PRN Q24H METOPROLOL TAB 25 MG (LOPRESSOR) MG 08/08/2019 09/06/2019 Daily&0900 CALCIUM CARBONATE TAB 500 MG (TUMS) MG 08/11/2019 09/10/2019 PRN Q6H LORAZEPAM TAB 0.5 MG (ATIVAN) MG 08/11/2019 09/10/2019 PRN Q6H HYDROCODONE/APAP 5MG/325MG T AB 5 MG/325MG (CHRISTO-TAB 5/325) TAB 08/11/2019 09/10/2019 PRN Q6H ACETAMINOPHEN ORAL TABLET 325mg(Tylenol) MG 08/11/2019 09/10/2019 PRN EVERY 6 Hour TIZANIDINE TAB 4 MG (ZANAFLEX) MG 08/11/2019 09/10/2019 PRN Q8H ALBUTEROL INHALER MDI 8 GM (VENTOLIN HFA) PUFF(S) 08/11/2019 09/10/2019 PRN Q4H ALUM/MAG/SIMETH 30CC LIQ (MYLANTA PLUS) cc 08/11/2019 08/21/2019 PRN Q4H CALMOSEPTINE OINT TUBE (RISAMINE OINT) keila 08/11/2019 08/18/2019 PRN QID VENLAFAXINE XR CAP 75 MG (EFFEXOR XR) MG 08/11/2019 09/10/2019 BID&0800,2000 Docusate sodium 100mg oral capsule (COLACE ) MG 08/11/2019 09/10/2019 BID&0800,2000 SIMVASTATIN TAB 10 MG (ZOCOR) MG 08/11/2019 09/09/2019 QPM&2000 BUDESONIDE/FORMOTEROL INH 16 0 /4.5MCG (SYMBICORT) PUFF 08/11/2019 09/10/2019 BID&0800,2000 MILK OF MAGNESIA LIQ ml 08/11/2019 09/10/2019 PRN BID AMITRIPTYLINE TAB 25 MG (ELAVIL) MG 08/11/2019 09/09/2019 QHS&2100 MIRTAZAPINE TAB 15 MG (REMERON) MG 08/11/2019 09/09/2019 QHS&2100 MELATONIN TAB 3 MG (MELATONIN) MG 08/11/2019 09/09/2019 QHS&2100 TRAMADOL TAB 50 MG (ULTRAM) MG 08/11/2019 08/21/2019 PRN Q8H LEVOTHYROXINE TAB 88 MCG (SYNTHROID) MCG 08/12/2019 09/10/2019 QAM&0800 ASPIRIN ENTERIC COATED TAB 8 1 MG (BABY ASPIRIN EC) MG 08/12/2019 09/10/2019 QAM&0800 ROPINIROLE TAB 1 MG (REQUIP) MG 08/12/2019 09/10/2019 QAM&0800 METFORMIN TAB 500 MG (GLUCOPHAGE) MG 08/12/2019 09/10/2019 QAM&0800 FUROSEMIDE TAB 20 MG (LASIX) MG 08/12/2019 09/10/2019 QAM&0800 PANTOPRAZOLE TAB 20 MG (PROTONIX) MG 08/12/2019 09/10/2019 QAM&0800 METOPROLOL TAB 25 MG (LOPRESSOR) MG 08/12/2019 09/10/2019 QAM&0800 VENLAFAXINE XR CAP 75 MG (EFFEXOR XR) MG 08/12/2019 09/10/2019 Daily&0900 Clonazepam Oral Dissolve Tab 0.25mg (Klono pin) MG 08/12/2019 08/14/2019 Daily&0900 POLYETHYLENE GLYCOL POWDER U D PWD (MIRALAX 17GM UNIT DOSE PAKS) gm 08/12/2019 09/11/2019 PRN Daily BISACODYL SUPPOS 10 MG (DULCOLAX SUPPOS) MG 08/12/2019 08/18/2019 PRN Daily BENZTROPINE TAB 1 MG (COGENTIN) MG 08/13/2019 08/20/2019 BID&0800,2000 CEFDINIR CAP 300 MG (OMNICEF) MG 08/14/2019 08/20/2019 BID&0800,2000 LACTULOSE SYRUP LIQ 20 GM/30 CC (CHRONULAC SYRUP) GM 08/14/2019 09/12/2019 BID&0800,2000 Lidocaine adhesive patch 5% (Lidoderm) 08/14/2019 08/23/2019 Daily&0900 HALOPERIDOL TAB 5 MG (HALDOL) MG 08/14/2019 08/14/2019 ONCE&1039 Quetiapine (Seroquel) 12.5mg oral tablet MG 08/15/2019 09/14/2019 TID&0800,1400,2000 BENZTROPINE TAB 1 MG (COGENTIN) MG 08/15/2019 08/22/2019 TID&0800,1400,2000 HALOPERIDOL TAB 5 MG (HALDOL) MG 08/16/2019 08/16/2019 ONCE&0927 HALOPERIDOL TAB 5 MG (HALDOL) MG 08/16/2019 08/17/2019 Q6H&0600,1800,2359 OLANZAPINE TAB 5 MG (ZYPREXA) MG 08/17/2019 08/17/2019 ONCE&1200 OLANZAPINE TAB 5 MG (ZYPREXA) MG 08/17/2019 09/16/2019 BID&0800,2000 CEFTRIAXONE PREMIX IV BAG IV 1 GM/50CC (ROCEPHIN PREMIX IV BAG) GM 11/04/2019 11/04/2019 ONCE&1150 CEFDINIR CAP 300 MG (OMNICEF) MG 11/04/2019 11/04/2019 ONCE&1221 Problems Date Dx Coded Attending Type Code Diagnosis Diagnosed By 01/25/2017 Erik Means 250.00 DIABETES MELLITUS WITHOUT MENTION OF COMPLICATION, TYPE II OR UNSPECIFIED TYPE, NOT STATED UNCONTROLLED 01/25/2017 Erik Means 272.4 OTHER AND UNSPECIFIED HYPERLIPIDEMIA 01/25/2017 Erik Means 491.20 OBSTRUCTIVE CHRONIC BRONCHITIS, WITHOUT EXACERBATION 01/25/2017 Erik Means 785.1 01/25/2017 Erik Means 786.09 OTHER DYSPNEA AND RESPIRATORY ABNORMALITY 01/25/2017 Erik Means 786.50 01/25/2017 Erik Means E11.9 TYPE 2 DIABETES MELLITUS WITHOUT COMPLICATIONS 01/25/2017 Erik eMans E78.5 HYPERLIPIDEMIA, UNSPECIFIED 01/25/2017 Erik Means J44.9 CHRONIC OBSTRUCTIVE PULMONARY DISEASE, UNSPECIFIED 01/25/2017 Erik Means R00.2 PALPITATIONS 01/25/2017 Erik Means R06.09 OTHER FORMS OF DYSPNEA 01/25/2017 Erik Means R07.9 CHEST PAIN, UNSPECIFIED 05/21/2018 Maxine Thompson 250.00 DIABETES MELLITUS WITHOUT MENTION OF COMPLICATION, TYPE II OR UNSPECIFIED TYPE, NOT STATED UNCONTROLLED 05/21/2018 Maxine Thompson W 401.9 UNSPECIFIED ESSENTIAL HYPERTENSION 05/21/2018, Maxine W E11.9 TYPE 2 DIABETES MELLITUS WITHOUT COMPLICATIONS 05/21/2018 Thompson, Maxine W I10 ESSENTIAL (PRIMARY) HYPERTENSION 05/21/2018 Thompson, Maxine W 244.9 UNSPECIFIED HYPOTHYROIDISM 05/21/2018 Thompson, Maxine W 250.00 DIABETES MELLITUS WITHOUT MENTION OF COMPLICATION, TYPE II OR UNSPECIFIED TYPE, NOT STATED UNCONTROLLED 05/21/2018 Thompson, Maxine W 401.9 UNSPECIFIED ESSENTIAL HYPERTENSION 05/21/2018 Thompson, Maxine W 737.39 OTHER KYPHOSCOLIOSIS AND SCOLIOSIS 05/21/2018 Thompson, Maxine W E03.9 HYPOTHYROIDISM, UNSPECIFIED 05/21/2018 Thompson, Maxine W E11.9 TYPE 2 DIABETES MELLITUS WITHOUT COMPLICATIONS 05/21/2018 Thompson, Maxine W I10 ESSENTIAL (PRIMARY) HYPERTENSION 05/21/2018 Thompson, Maxine W M41.80 OTHER FORMS OF SCOLIOSIS, SITE UNSPECIFIED 05/21/2018 W 244.9 UNSP ECIFIED HYPOTHYROIDISM 05/21/2018 W 250.00 OLIVIA BETES MELLITUS WITHOUT MENTION OF COMPLICATION, TYPE II OR UNSPECIFIED TYPE, NOT STATED UNCONTROLLED 05/21/2018 W 272.4 OTHE R AND UNSPECIFIED HYPERLIPIDEMIA 05/21/2018 W 401.9 UNSP ECIFIED ESSENTIAL HYPERTENSION 05/21/2018 W 737.39 OT ER KYPHOSCOLIOSIS AND SCOLIOSIS 05/21/2018 W E03.9 HYPO THYROIDISM, UNSPECIFIED 05/21/2018 W E11.9 TYPE 2 DIABETES MELLITUS WITHOUT COMPLICATIONS 05/21/2018 W E78.5 HYPE RLIPIDEMIA, UNSPECIFIED 05/21/2018 W I10 ESSENT IAL (PRIMARY) HYPERTENSION 05/21/2018 W M41.80 OT ER FORMS OF SCOLIOSIS, SITE UNSPECIFIED 05/21/2018 Thompson, Maxine W 244.9 UNSPECIFIED HYPOTHYROIDISM 05/21/2018 Thompson, Maxine W 250.00 DIABETES MELLITUS WITHOUT MENTION OF COMPLICATION, TYPE II OR UNSPECIFIED TYPE, NOT STATED UNCONTROLLED 05/21/2018 Thompson, Maxine W 401.9 UNSPECIFIED ESSENTIAL HYPERTENSION 05/21/2018 Thompson, Maxine W 737.39 OTHER KYPHOSCOLIOSIS AND SCOLIOSIS 05/21/2018 Thompson, Nakulu W E03.9 HYPOTHYROIDISM, UNSPECIFIED 05/21/2018 Thompson, Rosey-Pablo W E11.9 TYPE 2 DIABETES MELLITUS WITHOUT COMPLICATIONS 05/21/2018 Thompson, Rosey-Pablo W I10 ESSENTIAL (PRIMARY) HYPERTENSION 05/21/2018 Thompson, Rosey-Pablo W M41.80 OTHER FORMS OF SCOLIOSIS, SITE UNSPECIFIED 01/29/2019 Thompson, Rosey-Pablo W 780.79 OTHER MALAISE AND FATIGUE 01/29/2019 Thompson, RoseyKenn W R53.1 WEAKNESS 01/29/2019 Thompson, RoseyKenn W 244.9 UNSPECIFIED HYPOTHYROIDISM 01/29/2019 Thompson, Maxine W 780.79 OTHER MALAISE AND FATIGUE 01/29/2019 Thompson, RoseyKenn W E03.9 HYPOTHYROIDISM, UNSPECIFIED 01/29/2019 Thompson, Maxine W R53.1 WEAKNESS 01/29/2019 Thompson, Maxine W 244.9 UNSPECIFIED HYPOTHYROIDISM 01/29/2019 Thompson, RefugioPablo W 780.79 OTHER MALAISE AND FATIGUE 01/29/2019 Thompson, RoseyKenn W E03.9 HYPOTHYROIDISM, UNSPECIFIED 01/29/2019 Thompson, RoseySharathu W R53.1 WEAKNESS 01/29/2019 Thompson, Rosey-Pablo W V15.88 PERSONAL HISTORY OF FALL 01/29/2019 Thompson, RoseyKenn W Z91.81 HISTORY OF FALLING 01/29/2019 Thompson, RoseyKenn W 244.9 UNSPECIFIED HYPOTHYROIDISM 01/29/2019 Thompson, Maxine W 780.79 OTHER MALAISE AND FATIGUE 01/29/2019 Thompson, RoseyKenn W E03.9 HYPOTHYROIDISM, UNSPECIFIED 01/29/2019 Thompson, Maxine W R53.1 WEAKNESS 01/29/2019 Thompson, Maxine W V15.88 PERSONAL HISTORY OF FALL 01/29/2019 Thompson, Maxine W Z91.81 HISTORY OF FALLING 01/29/2019 Thompson, RoseyKenn W 244.9 UNSPECIFIED HYPOTHYROIDISM 01/29/2019 Thompson, Maxine W 250.00 DIABETES MELLITUS WITHOUT MENTION OF COMPLICATION, TYPE II OR UNSPECIFIED TYPE, NOT STATED UNCONTROLLED 01/29/2019 Thompson, Rosey-Pablo W 780.79 OTHER MALAISE AND FATIGUE 01/29/2019 Thompson, Nakulu W E03.9 HYPOTHYROIDISM, UNSPECIFIED 01/29/2019 Thompson, Rosey-Pablo W E11.9 TYPE 2 DIABETES MELLITUS WITHOUT COMPLICATIONS 01/29/2019 Thompson, Rosey-Pablo W R53.1 WEAKNESS 01/29/2019 Thompson, RoseyAureaPablo W V15.88 PERSONAL HISTORY OF FALL 01/29/2019 Thompson, RoseyAureaPablo W Z91.81 HISTORY OF FALLING 01/29/2019 Thompson, RoseyAureaPablo W 244.9 UNSPECIFIED HYPOTHYROIDISM 01/29/2019 Thompson, Rosey-Pablo W 250.00 DIABETES MELLITUS WITHOUT MENTION OF COMPLICATION, TYPE II OR UNSPECIFIED TYPE, NOT STATED UNCONTROLLED 01/29/2019 Thompson, Maxine W 780.79 OTHER MALAISE AND FATIGUE 01/29/2019 Thompson, Rosey-Pablo W E03.9 HYPOTHYROIDISM, UNSPECIFIED 01/29/2019 Thompson, Rosey-Pablo W E11.9 TYPE 2 DIABETES MELLITUS WITHOUT COMPLICATIONS 01/29/2019 Thompson, Rosey-Pablo W R53.1 WEAKNESS 01/29/2019 Thompson, Rosey-Pablo W V15.88 PERSONAL HISTORY OF FALL 01/29/2019 Thompson, Rosey-Pablo W Z91.81 HISTORY OF FALLING 01/29/2019 Thompson, RoseyAureaPablo W 244.9 UNSPECIFIED HYPOTHYROIDISM 01/29/2019 Thompson, Rosey-Pablo W 250.00 DIABETES MELLITUS WITHOUT MENTION OF COMPLICATION, TYPE II OR UNSPECIFIED TYPE, NOT STATED UNCONTROLLED 01/29/2019 Thompson, Rosey-Pablo W 780.79 OTHER MALAISE AND FATIGUE 01/29/2019 Thompson, Rosey-Pablo W E03.9 HYPOTHYROIDISM, UNSPECIFIED 01/29/2019 Thompson, Rosey-Pablo W E11.9 TYPE 2 DIABETES MELLITUS WITHOUT COMPLICATIONS 01/29/2019 Thompson, Rosey-Pablo W R53.1 WEAKNESS 01/29/2019 Thompson, Rosey-Pablo W V15.88 PERSONAL HISTORY OF FALL 01/29/2019 Thompson, RefugioPablo W Z91.81 HISTORY OF FALLING 01/29/2019 Thompson, Rosey-Pablo W 244.9 UNSPECIFIED HYPOTHYROIDISM 01/29/2019 Thompson, Nakulu W 250.00 DIABETES MELLITUS WITHOUT MENTION OF COMPLICATION, TYPE II OR UNSPECIFIED TYPE, NOT STATED UNCONTROLLED 01/29/2019 Thompson, RoseyAureaPablo W 780.79 OTHER MALAISE AND FATIGUE 01/29/2019 Thompson, Nakulu W E03.9 HYPOTHYROIDISM, UNSPECIFIED 01/29/2019 Thompson, RoseyKenn W E11.9 TYPE 2 DIABETES MELLITUS WITHOUT COMPLICATIONS 01/29/2019 Thompson, RoseyAureaPablo W R53.1 WEAKNESS 01/29/2019 Thompson, Nakulu W V15.88 PERSONAL HISTORY OF FALL 01/29/2019 Thompson, RoseyAureaPablo W Z91.81 HISTORY OF FALLING 01/29/2019 Thompson, Nakulu W 244.9 UNSPECIFIED HYPOTHYROIDISM 01/29/2019 Thompson, Nakulu W 250.00 DIABETES MELLITUS WITHOUT MENTION OF COMPLICATION, TYPE II OR UNSPECIFIED TYPE, NOT STATED UNCONTROLLED 01/29/2019 Thompson, Maxine W 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, UNSPECIFIED 01/29/2019 Thompson, RoseyAureaPablo W 780.79 OTHER MALAISE AND FATIGUE 01/29/2019 Thompson, Nakulu W E03.9 HYPOTHYROIDISM, UNSPECIFIED 01/29/2019 Thompson, Nakulu W E11.9 TYPE 2 DIABETES MELLITUS WITHOUT COMPLICATIONS 01/29/2019 Thompson, Rosey-Pablo W 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 01/29/2019 Thompson, RoseyKenn W R53.1 WEAKNESS 01/29/2019 Thompson, RoseyAureaPablo W V15.88 PERSONAL HISTORY OF FALL 01/29/2019 Thompson, RoseyAureaPablo W Z91.81 HISTORY OF FALLING 01/29/2019 Thompson, Nakulu W 244.9 UNSPECIFIED HYPOTHYROIDISM 01/29/2019 Thompson, Nakulu W 250.00 DIABETES MELLITUS WITHOUT MENTION OF COMPLICATION, TYPE II OR UNSPECIFIED TYPE, NOT STATED UNCONTROLLED 01/29/2019 Thompson, Maxine W 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, UNSPECIFIED 01/29/2019 Thompson, Maxine W 780.79 OTHER MALAISE AND FATIGUE 01/29/2019 Thompson, Rosey-Pablo W E03.9 HYPOTHYROIDISM, UNSPECIFIED 01/29/2019 Thompson, Nakulu W E11.9 TYPE 2 DIABETES MELLITUS WITHOUT COMPLICATIONS 01/29/2019 Thompson, Nakulu W 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 01/29/2019 Thompson, Nakulu W R53.1 WEAKNESS 01/29/2019 Thompson, Maxine W V15.88 PERSONAL HISTORY OF FALL 01/29/2019 Thompson, Nakulu W Z91.81 HISTORY OF FALLING 01/29/2019 Thompson, Nakulu W 244.9 UNSPECIFIED HYPOTHYROIDISM 01/29/2019 Thompson, Nakulu W 250.00 DIABETES MELLITUS WITHOUT MENTION OF COMPLICATION, TYPE II OR UNSPECIFIED TYPE, NOT STATED UNCONTROLLED 01/29/2019 Thompson, RoseyKenn W 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, UNSPECIFIED 01/29/2019 Thompson, RoseyKenn W 780.79 OTHER MALAISE AND FATIGUE 01/29/2019 Thompson, RoseyKenn W E03.9 HYPOTHYROIDISM, UNSPECIFIED 01/29/2019 Thompson, Rosey-Pablo W E11.9 TYPE 2 DIABETES MELLITUS WITHOUT COMPLICATIONS 01/29/2019 Thompson, Rosey-Pablo W 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 01/29/2019 Thompson, Rosey-Pablo W R53.1 WEAKNESS 01/29/2019 Thompson, Nakulu W V15.88 PERSONAL HISTORY OF FALL 01/29/2019 Thompson, Nakulu W Z91.81 HISTORY OF FALLING 01/29/2019 Thompson, Rosey-Pablo W 244.9 UNSPECIFIED HYPOTHYROIDISM 01/29/2019 Thompson, RoseyAureaPablo W 250.00 DIABETES MELLITUS WITHOUT MENTION OF COMPLICATION, TYPE II OR UNSPECIFIED TYPE, NOT STATED UNCONTROLLED 01/29/2019 Thompson, Maxine W 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, UNSPECIFIED 01/29/2019 Thompson, Maxine W 312.89 OTHER CONDUCT DISORDER 01/29/2019 Thompson, Maxine W 780.79 OTHER MALAISE AND FATIGUE 01/29/2019 Thompson, RoseyKenn W E03.9 HYPOTHYROIDISM, UNSPECIFIED 01/29/2019 Thompson, Maxine W E11.9 TYPE 2 DIABETES MELLITUS WITHOUT COMPLICATIONS 01/29/2019 Thmopson, Maxine W 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 01/29/2019 Thompson, Rosey-Pablo W R53.1 WEAKNESS 01/29/2019 Thompson, Rosey-Pablo W V15.88 PERSONAL HISTORY OF FALL 01/29/2019 Thompson, Rosey-Pablo W Z91.81 HISTORY OF FALLING 01/30/2019 Thompson, Rosey-Pablo W 244.9 UNSPECIFIED HYPOTHYROIDISM 01/30/2019 Tohmpson, Rosey-Pablo W 250.00 DIABETES MELLITUS WITHOUT MENTION OF COMPLICATION, TYPE II OR UNSPECIFIED TYPE, NOT STATED UNCONTROLLED 01/30/2019 Thompson, Rosey-Pablo W 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, UNSPECIFIED 01/30/2019 Thompson, Rosey-Pablo W 312.89 OTHER CONDUCT DISORDER 01/30/2019 Thompson, Rosey-Pablo W 724.2 LUMBAGO 01/30/2019 Thompson, Rosey-Pablo W 729.89 OTHER MUSCULOSKELETAL SYMPTOMS REFERABLE TO LIMBS 01/30/2019 Thompson, RefugioPablo W 780.79 OTHER MALAISE AND FATIGUE 01/30/2019 Thompson, Rosey-Pablo W 788.1 DYSURIA 01/30/2019 Thompson, Rosey-Pablo W 788.20 RETENTION OF URINE, UNSPECIFIED 01/30/2019 Thompson, Rosey-Pablo W E03.9 HYPOTHYROIDISM, UNSPECIFIED 01/30/2019 Thompson, Rosey-Pablo W E11.9 TYPE 2 DIABETES MELLITUS WITHOUT COMPLICATIONS 01/30/2019 Thompson, Rosey-Pablo W 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 01/30/2019 Thompson, RefugioPablo W M54.5 LOW BACK PAIN 01/30/2019 Thompson, Rosey-Pablo W R29.898 OT SYMPTOMS AND SIGNS INVOLVING THE MUSCULOSKELETAL SYSTEM 01/30/2019 Thompson, Maxine W R30.0 DYSURIA 01/30/2019 Thompson, Maxine W R33.9 RETENTION OF URINE, UNSPECIFIED 01/30/2019 Thompson, Rosey-Pablo W R53.1 WEAKNESS 01/30/2019 Thompson, Rosey-Pablo W V15.88 PERSONAL HISTORY OF FALL 01/30/2019 Thompson, Rosey-Pablo W Z91.81 HISTORY OF FALLING 05/25/2019 Jaylon Low W 428.9 HEART FAILURE, UNSPECIFIED 05/25/2019 MarandaJaylon W 486 PNEUMONIA, ORGANISM UNSPECIFIED 05/25/2019 Jaylon Low 491.21 OBSTRUCTIVE CHRONIC BRONCHITIS WITH (ACUTE) EXACERBATION 05/25/2019 Jaylon Low W 518.82 OTHER PULMONARY INSUFFICIENCY, NOT ELSEWHERE CLASSIFIED 05/25/2019 Jaylon Low Angie I50.9 HEART FAILURE, UNSPECIFIED 05/25/2019 Jaylon Low J18.9 PNEUMONIA, UNSPECIFIED ORGANISM 05/25/2019 Jaylon Low J44.1 CHRONIC OBSTRUCTIVE PULMONARY DISEASE W (ACUTE) EXACERBATION 05/25/2019 Jaylon Low J80 ACUTE RESPIRATORY DISTRESS SYNDROME 05/27/2019 ALEXANDRO COUGHLIN MD, Ot D72.829 ELEVATED WHITE BLOOD CELL COUNT, UNSPECI 05/27/2019 ALEXANDRO COUGHLIN MD, Ot E03. 9 HYPOTHYROIDISM, UNSPECIFIED 05/27/2019 ALEXANDRO COUGHLIN MD Ot E66. 9 OBESITY, UNSPECIFIED 05/27/2019 ALEXANDRO COUGHLIN MD, Ot E83. 42 HYPOMAGNESEMIA 05/27/2019 ALEXANDRO COUGHLIN MD Ot I10 ESSENTIAL (PRIMARY) HYPERTENSION 05/27/2019 ALEXANDRO COUGHLIN MD, Ot J44. 1 CHRONIC OBSTRUCTIVE PULMONARY DISEASE W 05/27/2019 ALEXANDRO COUGHLIN MD Ot J96. 01 ACUTE RESPIRATORY FAILURE WITH HYPOXIA 05/27/2019 ALEXANDRO COUGHLIN MD Ot J98. 11 ATELECTASIS 05/27/2019 ALEXANDRO COUGHLIN MD Ot M25.519 PAIN IN UNSPECIFIED SHOULDER 05/27/2019 ALEXANDRO COUGHLIN MD Ot M54. 2 CERVICALGIA 05/27/2019 ALEXANDRO COUGHLIN MD, Ot M54. 9 DORSALGIA, UNSPECIFIED 05/27/2019 ALEXANDRO COUGHLIN MD, Ot T38.0X5A ADVERSE EFFECT OF GLUCOCORT/SYNTH ANALOG 05/27/2019 ALEXANDRO COUGHLIN MD Ot Z68. 41 BODY MASS INDEX (BMI) 40.0-44.9, ADULT 05/28/2019 ALEXANDRO COUGHLIN MD, Ot D72.829 ELEVATED WHITE BLOOD CELL COUNT, UNSPECI 05/28/2019 CED MD, ALEXANDRO M Ot E03. 9 HYPOTHYROIDISM, UNSPECIFIED 05/28/2019 ALEXANDRO COUGHLIN MD Ot E66. 9 OBESITY, UNSPECIFIED 05/28/2019 ALEXANDRO COUGHLIN MD Ot E83. 42 HYPOMAGNESEMIA 05/28/2019 ALEXANDRO COUGHLIN MD Ot I10 ESSENTIAL (PRIMARY) HYPERTENSION 05/28/2019 ALEXANDRO COUGHLIN MD Ot J44. 1 CHRONIC OBSTRUCTIVE PULMONARY DISEASE W 05/28/2019 ALEXANDRO COUGHLIN MD Ot J96. 01 ACUTE RESPIRATORY FAILURE WITH HYPOXIA 05/28/2019 ALEXANDRO COUGHLIN MD, Ot J98. 11 ATELECTASIS 05/28/2019 ALEXANDRO COUGHLIN MD Ot M25.519 PAIN IN UNSPECIFIED SHOULDER 05/28/2019 ALEXANDRO COUGHLIN MD Ot M54. 2 CERVICALGIA 05/28/2019 ALEXANDRO COUGHLIN MD, Ot M54. 9 DORSALGIA, UNSPECIFIED 05/28/2019 ALEXANDRO COUGHLIN MD Ot T38.0X5A ADVERSE EFFECT OF GLUCOCORT/SYNTH ANALOG 05/28/2019 ALEXANDRO COUGHLIN MD Ot Z68. 41 BODY MASS INDEX (BMI) 40.0-44.9, ADULT 05/28/2019 ALEXANDRO COUGHLIN MD Ot D72.829 ELEVATED WHITE BLOOD CELL COUNT, UNSPECI 05/28/2019 ALEXANDRO COUGHLIN MD Ot E03. 9 HYPOTHYROIDISM, UNSPECIFIED 05/28/2019 ALEXANDRO COUGHLIN MD Ot E11. 9 TYPE 2 DIABETES MELLITUS WITHOUT COMPLIC 05/28/2019 ALEXANDRO COUGHLIN MD Ot E66. 2 MORBID (SEVERE) OBESITY WITH ALVEOLAR HY 05/28/2019 ALEXANDRO COUGHLIN MD Ot E66. 9 OBESITY, UNSPECIFIED 05/28/2019 ALEXANDRO COUGHLIN MD Ot E78. 5 HYPERLIPIDEMIA, UNSPECIFIED 05/28/2019 ALEXANDRO COUGHLIN MD Ot E83. 42 HYPOMAGNESEMIA 05/28/2019 ALEXANDRO COUGHLIN MD Ot I07. 1 RHEUMATIC TRICUSPID INSUFFICIENCY 05/28/2019 ALEXANDRO COUGHLIN MD Ot I10 ESSENTIAL (PRIMARY) HYPERTENSION 05/28/2019 ALEXANDRO COUGHLIN MD Ot I11. 0 HYPERTENSIVE HEART DISEASE WITH HEART FA 05/28/2019 ALEXANDRO COUGHLIN MD, Ot I21. A1 MYOCARDIAL INFARCTION TYPE 2 05/28/2019 ALEXANDRO COUGHLIN MD Ot I44. 7 LEFT BUNDLE-BRANCH BLOCK, UNSPECIFIED 05/28/2019 ALEXANDRO COUGHLIN MD Ot I50. 31 ACUTE DIASTOLIC (CONGESTIVE) HEART FAILU 05/28/2019 ALEXANDRO COUGHLIN MD, Ot J44. 1 CHRONIC OBSTRUCTIVE PULMONARY DISEASE W 05/28/2019 ALEXANDRO COUGHLIN MD, Ot J96. 01 ACUTE RESPIRATORY FAILURE WITH HYPOXIA 05/28/2019 ALEXANDRO COUGHLIN MD, Ot J98. 11 ATELECTASIS 05/28/2019 ALEXANDRO COUGHLIN MD, Ot M25.519 PAIN IN UNSPECIFIED SHOULDER 05/28/2019 ALEXANDRO COUGHLIN MD Ot M50. 20 OTHER CERVICAL DISC DISPLACEMENT, UNSP C 05/28/2019 ALEXANDRO COUGHLIN MD, Ot M54. 2 CERVICALGIA 05/28/2019 ALEXANDRO COUGHLIN MD, Ot M54. 9 DORSALGIA, UNSPECIFIED 05/28/2019 ALEXANDRO COUGHLIN MD, Ot T38.0X5A ADVERSE EFFECT OF GLUCOCORT/SYNTH ANALOG 05/28/2019 ALEXNADRO COUGHLIN MD Ot Z68. 41 BODY MASS INDEX (BMI) 40.0-44.9, ADULT 05/28/2019 ALEXANDRO COUGHLIN MD Ot Z87.891 PERSONAL HISTORY OF NICOTINE DEPENDENCE 08/07/2019 LUIS KENYON APRN W E03 .9 HYPOTHYROIDISM, UNSPECIFIED 08/07/2019 LUIS KENYON APRN W E11 .9 TYPE 2 DIABETES MELLITUS WITHOUT COMPLICATIONS 08/07/2019 LUIS KENYON APRN W E78 .5 HYPERLIPIDEMIA, UNSPECIFIED 08/07/2019 LUIS KENYON APRN W F60 .4 HISTRIONIC PERSONALITY DISORDER 08/07/2019 LUIS KENYON APRN W I10 ESSENTIAL (PRIMARY) HYPERTENSION 08/07/2019 LUIS KENYON APRN W I50 .9 HEART FAILURE, UNSPECIFIED 08/07/2019 LUIS KENYON APRN W J18 .9 PNEUMONIA, UNSPECIFIED ORGANISM 08/07/2019 LUIS KENYON APRN J44 .1 CHRONIC OBSTRUCTIVE PULMONARY DISEASE W (ACUTE) EXACERBATION 08/07/2019 LUIS KENYON APRN J44 .9 CHRONIC OBSTRUCTIVE PULMONARY DISEASE, UNSPECIFIED 08/07/2019 CHANTALE YARD MANAGERSHELLEY PaganY W J80 ACUTE RESPIRATORY DISTRESS SYNDROME 08/07/2019 CHANTALE YARD MANAGERSHELLEY PaganY W M41 .80 OTHER FORMS OF SCOLIOSIS, SITE UNSPECIFIED 08/07/2019 CHANTALE YARD MANAGERSHELLEY PaganY W M54 .5 LOW BACK PAIN 08/07/2019 CHANTALE YARD MANAGERSHELLEY PaganY W R00 .2 PALPITATIONS 08/07/2019 CHANTALE YARD MANAGERSHELLEYY W R06 .09 OTHER FORMS OF DYSPNEA 08/07/2019 CHANTALE YARD MANAGERSHELLEYY W R07 .9 CHEST PAIN, UNSPECIFIED 08/07/2019 CHANTALE YARD MANAGERSHELLEYY W R29.898 OTH SYMPTOMS AND SIGNS INVOLVING THE MUSCULOSKELETAL S YSTEM 08/07/2019 CHANTALE YARD MANAGERSHELLEY PaganY W R30 .0 DYSURIA 08/07/2019 CHANTALE YARD MANAGERSHELLEY PaganY W R33 .9 RETENTION OF URINE, UNSPECIFIED 08/07/2019 CHANTALE YARD MANAGERSHELLEY PaganY W R44 .1 VISUAL HALLUCINATIONS 08/07/2019 CHANTALE YARD MANAGERSHELLEY PaganY W R53 .1 WEAKNESS 08/07/2019 CHANTALE YARD MANAGERSHELLEY PaganY W Z91 .81 HISTORY OF FALLING 08/08/2019 Julisa Stephenson W 368.16 PSYCHOPHYSICAL VISUAL DISTURBANCES 08/08/2019 Julisa Stephenson W R44.1 VISUAL HALLUCINATIONS 08/08/2019 Julisa Stephenson W 368.16 PSYCHOPHYSICAL VISUAL DISTURBANCES 08/08/2019 Julisa Stephenson W E03.9 HYPOTHYROIDISM, UNSPECIFIED 08/08/2019 Julisa Stephenson W E11.9 TYPE 2 DIABETES MELLITUS WITHOUT COMPLICATIONS 08/08/2019 Julisa Stephenson W E78.5 HYPERLIPIDEMIA, UNSPECIFIED 08/08/2019 Julisa Stephenson W 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 08/08/2019 Julisa Stephenson W I10 ESSENTIAL (PRIMARY) HYPERTENSION 08/08/2019 Julisa Stephenson W I50.9 HEART FAILURE, UNSPECIFIED 08/08/2019 Julisa Stephenson W J18.9 PNEUMONIA, UNSPECIFIED ORGANISM 08/08/2019 Julisa Stephenson W J44.1 CHRONIC OBSTRUCTIVE PULMONARY DISEASE W (ACUTE) EXACERBATION 08/08/2019 Julisa Stephenson W J44.9 CHRONIC OBSTRUCTIVE PULMONARY DISEASE, UNSPECIFIED 08/08/2019 Adwoa Stephensoni W J80 ACUTE RESPIRATORY DISTRESS SYNDROME 08/08/2019 Julisa Stephenson W M41.80 OTHER FORMS OF SCOLIOSIS, SITE UNSPECIFIED 08/08/2019 Adwoa Stephensoni W M54.5 LOW BACK PAIN 08/08/2019 Julisa Stephenson W R00.2 PALPITATIONS 08/08/2019 Julisa Stephenson W R06.09 OTHER FORMS OF DYSPNEA 08/08/2019 Julisa Stephenson W R07.9 CHEST PAIN, UNSPECIFIED 08/08/2019 Julisa Stephenson W R29.898 OTH SYMPTOMS AND SIGNS INVOLVING THE MUSCULOSKELETAL SYSTEM 08/08/2019 Julisa Stephenson W R30.0 DYSURIA 08/08/2019 Adwoa Stephensoni W R33.9 RETENTION OF URINE, UNSPECIFIED 08/08/2019 Julisa Stephenson W R44.1 VISUAL HALLUCINATIONS 08/08/2019 Julisa Stephenson W R53.1 WEAKNESS 08/08/2019 Julisa Stephenson W Z91.81 HISTORY OF FALLING 08/18/2019 THEODORE MONZON W E03 .9 HYPOTHYROIDISM, UNSPECIFIED 08/18/2019 TARTAGLIONEEARLEUA W E11 .9 TYPE 2 DIABETES MELLITUS WITHOUT COMPLICATIONS 08/18/2019 THEODORE MONZON W E78 .5 HYPERLIPIDEMIA, UNSPECIFIED 08/18/2019 TARTAGLIONEEALREUA W F60 .4 HISTRIONIC PERSONALITY DISORDER 08/18/2019 EARLE MONZONUA W I10 ESSENTIAL (PRIMARY) HYPERTENSION 08/18/2019 MICHELLTATHEODORE ERVIN W I50 .9 HEART FAILURE, UNSPECIFIED 08/18/2019 TARTAGLIONEEARLEUA W J18 .9 PNEUMONIA, UNSPECIFIED ORGANISM 08/18/2019 TARTAGLIONEEARLEUA W J44 .1 CHRONIC OBSTRUCTIVE PULMONARY DISEASE W (ACUTE) EXACERBATION 08/18/2019 TARTAGLTHEODORE FINN W J44 .9 CHRONIC OBSTRUCTIVE PULMONARY DISEASE, UNSPECIFIED 08/18/2019 TARTAGLIONEEARLEUA W J80 ACUTE RESPIRATORY DISTRESS SYNDROME 08/18/2019 TARTATHEODORE ERVIN W M41 .80 OTHER FORMS OF SCOLIOSIS, SITE UNSPECIFIED 08/18/2019 TARTAGLIONE, THEODORE W M54 .5 LOW BACK PAIN 08/18/2019 MICHELLTAGLTHEODORE FINN W R00 .2 PALPITATIONS 08/18/2019 ЮЛИЯGLTHEODORE FINN W R06 .09 OTHER FORMS OF DYSPNEA 08/18/2019 ЮЛИЯGLTHEODORE FINN W R07 .9 CHEST PAIN, UNSPECIFIED 08/18/2019 ЮЛИЯGLTHEODORE FINN W R29.898 OTH SYMPTOMS AND SIGNS INVOLVING THE MUSCULOSKELETAL S YSTEM 08/18/2019 MICHELLTAGLTHEODORE FINN W R30 .0 DYSURIA 08/18/2019 MICHELLTAGLTHEODORE FINN W R33 .9 RETENTION OF URINE, UNSPECIFIED 08/18/2019 ЮЛИЯGLTHEODORE FINN W R44 .1 VISUAL HALLUCINATIONS 08/18/2019 ЮЛИЯGLTHEODORE FINN W R53 .1 WEAKNESS 08/18/2019 MICHELLTAGLTHEODORE FINN W Z91 .81 HISTORY OF FALLING 10/27/2019 ESDRAS ARRIAZA Ot R44.3 HALLUCINATIONS, UNSPECIFIED 10/27/2019 YEMI LIRA, UZMA Nuñez Ot R44.3 HALLUCINATIONS, UNSPECIFIED 10/27/2019 YEMI LIRA, UZMA Nuñez Ot R44.3 HALLUCINATIONS, UNSPECIFIED 10/28/2019 ESDRAS ARRIAZA Ot R44.3 HALLUCINATIONS, UNSPECIFIED 11/04/2019 LEISURE, CARRIEWILLIAM W 599.0 URINARY TRACT INFECTION, SITE NOT SPEC 11/04/2019 LEISURE, CARRIEWILLIAM W 788.20 RETENTION OF URINE, U 11/04/2019 LEISURE, DALY W E03.9 HYPOTHYROIDISM, UNSPECIFIED 11/04/2019 LEISURE, DALY W E11.9 TYPE 2 DIABETES MELLITUS WITHOUT COMPLICATIONS 11/04/2019 LEISURE, DALY W E78.5 HYPERLIPIDEMIA, UNSPECIFIED 11/04/2019 LEISURE, DALY W I10 ESSENTIAL (PRIMARY) HYPERTENSION 11/04/2019 LEISURE, DALY W I50.9 HEART FAILURE, UNSPECIFIED 11/04/2019 LEISURE, DALY W J18.9 PNEUMONIA, UNSPECIFIED ORGANISM 11/04/2019 LEISURE, DALY Adams J44.1 CHRONIC OBSTRUCTIVE PULMONARY DISEASE W (ACUTE) EXACERBATION 11/04/2019 LEISURE, DALY Adams J44.9 CHRONIC OBSTRUCTIVE PULMONARY DISEASE, UNSPECIFIED 11/04/2019 LEISURE, DALY W J80 ACUTE RESPIRATORY DISTRESS SYNDROME 11/04/2019 LEISURE, DALY W M41.80 OTHER FORMS OF SCOLIOSIS, SITE UNSPECIFIED 11/04/2019 LEISURE, DALY W M54.5 LOW BACK PAIN 11/04/2019 LEISURE, DALY W N13.8 OTHER OBSTRUCTIVE AND REFLUX UROPATHY 11/04/2019 LEISURE, DALY W N39.0 URINARY TRACT INFECTION, SITE NOT SPECIFIED 11/04/2019 LEISURE, DALY W R00.2 PALPITATIONS 11/04/2019 LEISURE, DALY W R06.09 OTHER FORMS OF DYSPNEA 11/04/2019 LEISURE, DALY W R07.9 CHEST PAIN, UNSPECIFIED 11/04/2019 LEISURE, DALY W R29.89 8 OTH SYMPTOMS AND SIGNS INVOLVING THE MUSCULOSKELETAL SYSTEM 11/04/2019 LEISURE, DALY W R30.0 DYSURIA 11/04/2019 LEISURE, DALY W R33.9 RETENTION OF URINE, UNSPECIFIED 11/04/2019 LEISURE, DALY W R44.1 VISUAL HALLUCINATIONS 11/04/2019 LEISURE, DALY W R53.1 WEAKNESS 11/04/2019 LEISURE, DALY W Z91.81 HISTORY OF FALLING 11/11/2019 ESDRAS ARRIAZA Ot R44.3 HALLUCINATIONS, UNSPECIFIED 11/11/2019 YEMI LIRA, UZMA Nuñez Ot R44.3 HALLUCINATIONS, UNSPECIFIED 11/11/2019 YEMI LIRA, UZMA Nuñez Ot R44.3 HALLUCINATIONS, UNSPECIFIED 11/11/2019 ESDRAS ARRIAZA L Ot R44.3 HALLUCINATIONS, UNSPECIFIED 11/19/2019 ESDRAS ARRIAZA L Ot R44.3 HALLUCINATIONS, UNSPECIFIED 11/20/2019 YEMI LIRA, UZMA Nuñez Ot R44.3 HALLUCINATIONS, UNSPECIFIED 11/20/2019 ESDRAS ARRIAZA L Ot R44.3 HALLUCINATIONS, UNSPECIFIED 11/20/2019 YEMI LIRA, UZMA A Ot R44.3 HALLUCINATIONS, UNSPECIFIED 11/20/2019 YEMI LIRA, UZMA Nuñez Ot R44.3 HALLUCINATIONS, UNSPECIFIED 12/02/2019 YEMI LIRA, UZMA Nuñez Ot R44.3 HALLUCINATIONS, UNSPECIFIED 12/02/2019 ESDRAS ARRIAZA L Ot R44.3 HALLUCINATIONS, UNSPECIFIED 12/02/2019 ESDRAS ARRIAZA Ot R44.3 HALLUCINATIONS, UNSPECIFIED 12/03/2019 MERCEDES BUTCHER, ESDRAS Purvis Ot R44.3 HALLUCINATIONS, UNSPECIFIED 12/23/2019 YEMI LIRA, UZMA A Ot R44.3 HALLUCINATIONS, UNSPECIFIED 01/05/2020 YEMI LIRA, UZMA A Ot R44.3 HALLUCINATIONS, UNSPECIFIED 01/05/2020 MERCEDES BUTCHER, ESDRAS Purvis Ot R44.3 HALLUCINATIONS, UNSPECIFIED 01/05/2020 YEMI LIRA, UZMA A Ot R44.3 HALLUCINATIONS, UNSPECIFIED 01/30/2020 YEMI LIRA, UZMA A Ot R44.3 HALLUCINATIONS, UNSPECIFIED 01/30/2020 MERCEDES BUTCHER, ESDRAS Purvis Ot R44.3 HALLUCINATIONS, UNSPECIFIED Procedures There is no data. Results Test Result Range Thyroid Stimulating Hormone - 01/25/17 2 0:50 TSH 25.31 mIU/mL 0.32-5.00 Thyroid Stimulating Hormone - 05/21/18 0 9:45 TSH 24.93 mIU/mL 0.32-5.00 Free T4 - 05/21/18 09:45 Free T4 0.76 ng/dL 0.81-1.61 Urine Culture - 01/29/19 14:11 PRELIM CULTURE RESULTS No Growth 24 hours MEDIA PLATED Setup at 15:36 on 01/29/2019 CULTURE SOURCE [id number] Urine Culture - 01/29/19 14:11 PRELIM CULTURE RESULTS No Growth 24 hours FINAL CULTURE RESULTS No Growth 48 hours MEDIA PLATED Setup at 15:36 on 01/29/2019 CULTURE SOURCE [id number] Rapid Drug Screen + ETOH,Medical - 01/29 14:11 Amphetamine NEGATIVE NEGATIVE Barbiturates NEGATIVE NEGATIVE Benzodiazepines NEGATIVE NEGATIVE Cocaine NEGATIVE NEGATIVE Ethanol, Urine <10.00 mg/dL 20.00-80.00 Marijuana NEGATIVE NEGATIVE Methylenedioxymethamphetamine NEGATIVE NEGATIVE Opiates NEGATIVE NEGATIVE Oxycodone NEGATIVE NEGATIVE Phencyclidine NEGATIVE NEGATIVE Propoxyphene NEGATIVE NEGATIVE Tricyclic Antidepressant POSITIVE NEGAT ANNABEL Thyroid Stimulating Hormone - 01/29/19 1 4:18 TSH 14.03 mIU/mL 0.32-5.00 CBC with Auto Diff - 01/30/19 05:15 Baso% 0.20 % 0.00-2.50 Eos 0.3 K/uL 0.0-0.7 Eos% 2.8 % 0.0-7.0 Hct 40.8 % 36.0-46.0 Hgb 13.0 g/dL 13.0-15.0 Lym 3.43 K/uL 0.60-3.40 Lym% 37.4 % 10.0-50.0 MCH 30.7 pg 27.0-31.0 MCHC 31.9 g/dL 32.0-36.0 MCV 96.2 fL 80.0-97.0 [place]% 10.2 % 0.0-12.0 MPV 9.5 fL 7.4-10.0 [place]% 49.4 % 37.0-80.0 Plt 242 K/uL 150-400 RBC 4.24 M/uL 3.60-5.00 RDW 13.7 % 11.6-14.8 WBC 9.18 K/uL 5.00-10.00 [place] 4.53 K/uL 2.00-6.90 [place] 0.9 K/uL 0.0-0.9 Baso 0.0 K/uL 0.0-0.2 Free T4 - 01/30/19 05:15 Free T4 0.72 ng/dL 0.81-1.61 Thyroid Stimulating Hormone - 03/12/19 0 6:31 TSH 0.05 mIU/mL 0.32-5.00 Thyroid Stimulating Hormone - 04/16/19 0 6:05 TSH 0.00 mIU/mL 0.32-5.00 Mycoplasma - 05/21/19 20:00 Mycoplasma Negative Negative BNP - 05/25/19 07:40 BNP 251.70 pg/ml 0.00-100.00 Blood Culture - 05/25/19 07:40 PRELIM CULTURE RESULTS Blood Culture Negativ e, No Growth Day 1 FINAL CULTURE RESULTS Blood Culture Negative , No Growth Day 5 MEDIA PLATED Setup at 08:21 on 05/25/2019 @ C43 CULTURE SOURCE right arm (IV) Blood Culture - 05/25/19 08:06 PRELIM CULTURE RESULTS Blood Culture Negativ e, No Growth Day 1 FINAL CULTURE RESULTS Blood Culture Negative , No Growth Day 5 MEDIA PLATED Setup at 08:21 on 05/25/2019 @ C49 CULTURE SOURCE arterial Methicillin resistant Staphylococcus aur eus (MRSA) screening culture - 05/25/19 11:00 Methicillin resistant Staphylococcus aureus (MRSA) scr eening culture NEG NRG Complete blood count (CBC) with automate d white blood cell (WBC) differential - 05/25/19 13:47 Blood leukocytes automated count (number/volume) 7.6 10*3/uL 4.3-11.0 Blood erythrocytes automated count (number/volume) 4.03 10*6/uL 4.35-5.85 Venous blood hemoglobin measurement (mass/volume) 11.8 g/dL 11.5-16.0 Blood hematocrit (volume fraction) 37 % 35-52 Automated erythrocyte mean corpuscular volume 93 [ foz_us] 80-99 Automated erythrocyte mean corpuscular h emoglobin (mass per erythrocyte) 29 pg 25-34 Automated erythrocyte mean corpuscular h emoglobin concentration measurement (mass/volume) 32 g/dL 32-36 Automated erythrocyte distribution width ratio 14. 1 % 10.0- 14.5 Automated blood platelet count (count/volume) 236 10*3/uL 130-400 Automated blood platelet mean volume measurement 9.4 [foz_us] 7.4-10.4 Automated blood neutrophils/100 leukocytes 91 % 42-75 Automated blood lymphocytes/100 leukocytes 6 % 12-44 Blood monocytes/100 leukocytes 2 % 0-12 Automated blood eosinophils/100 leukocytes 0 % 0-10 Automated blood basophils/100 leukocytes 0 % 0-10 Blood neutrophils automated count (number/volume) 7.0 10*3 1.8-7.8 Blood lymphocytes automated count (number/volume) 0.5 10*3 1.0-4.0 Blood monocytes automated count (number/volume) 0. 2 10*3 0.0-1.0 Automated eosinophil count 0.0 10*3/uL 0 .0-0.3 Automated blood basophil count (count/volume) 0.0 10*3/uL 0.0-0.1 Manual absolute plasma cell count - 04/28 05/15 13:47 Blood monocytes/100 leukocytes 4 % NRG Manual blood segmented neutrophils/100 leukocytes 90 % NRG Manual blood lymphocytes/100 leukocytes 5 % NRG Manual blood basophils/100 leukocytes 1 % NRG Blood erythrocyte morphology finding identification NORMAL NRG PROCALCITONIN (PCT) - 05/25/19 13:47 PROCALCITONIN (PCT) 0.06 ng/mL <0.10 Complete blood count (CBC) with automate d white blood cell (WBC) differential - 05/26/19 03:44 Blood leukocytes automated count (number/volume) 12.2 10*3/uL 4.3-11.0 Blood erythrocytes automated count (number/volume) 3.67 10*6/uL 4.35-5.85 Venous blood hemoglobin measurement (mass/volume) 10.5 g/dL 11.5-16.0 Blood hematocrit (volume fraction) 34 % 35-52 Automated erythrocyte mean corpuscular volume 92 [ foz_us] 80-99 Automated erythrocyte mean corpuscular h emoglobin (mass per erythrocyte) 29 pg 25-34 Automated erythrocyte mean corpuscular h emoglobin concentration measurement (mass/volume) 31 g/dL 32-36 Automated erythrocyte distribution width ratio 14. 2 % 10.0- 14.5 Automated blood platelet count (count/volume) 246 10*3/uL 130-400 Automated blood platelet mean volume measurement 9.6 [foz_us] 7.4-10.4 Automated blood neutrophils/100 leukocytes 80 % 42-75 Automated blood lymphocytes/100 leukocytes 11 % 12-44 Blood monocytes/100 leukocytes 9 % 0-12 Automated blood eosinophils/100 leukocytes 0 % 0-10 Automated blood basophils/100 leukocytes 0 % 0-10 Blood neutrophils automated count (number/volume) 9.8 10*3 1.8-7.8 Blood lymphocytes automated count (number/volume) 1.4 10*3 1.0-4.0 Blood monocytes automated count (number/volume) 1. 1 10*3 0.0-1.0 Automated eosinophil count 0.0 10*3/uL 0 .0-0.3 Automated blood basophil count (count/volume) 0.0 10*3/uL 0.0-0.1 Whole blood basic metabolic panel - 04/29 03:44 Serum or plasma sodium measurement (moles/volume) 140 mmol/L 135-145 Serum or plasma potassium measurement (moles/volume) 3.7 mmol/L 3.6-5.0 Serum or plasma chloride measurement (moles/volume) 100 mmol/L 98-107 Carbon dioxide 28 mmol/L 21-32 Serum or plasma anion gap determination (moles/volume) 12 mmol/L 5-14 Serum or plasma urea nitrogen measurement (mass/volume ) 23 mg/dL 7-18 Serum or plasma creatinine measurement (mass/volume) 0.97 mg/dL 0.60-1.30 Serum or plasma urea nitrogen/creatinine mass ratio 24 NRG Serum or plasma creatinine measurement w ith calculation of estimated glomerular filtration rate 57 NRG Serum or plasma glucose measurement (mass/volume) 127 mg/dL 70-105 Serum or plasma calcium measurement (mass/volume) 8.9 mg/dL 8.5-10.1 Serum or plasma phosphate measurement (m ass/volume) - 05/26/19 03:44 Serum or plasma phosphate measurement (mass/volume) 2.5 mg/dL 2.3-4.7 Magnesium - 05/26/19 03:44 Magnesium 1.4 mg/dL 1.6-2.4 Serum or plasma lithium measurement (mol es/volume) - 05/26/19 03:44 BNP PT 505.7 pg/mL <100.0 Arterial blood gas measurement - 9 03:47 Blood pCO2 44 mm[Hg] 35-45 Blood pO2 72 mm[Hg] 79-93 Arterial blood bicarbonate measurement (moles/volume) 31 mmol/L 23-27 Arterial blood base excess by calculation 6.8 mmol /L -2.5-2.5 Arterial blood oxygen saturation measurement 94 % 94-100 * Inhaled oxygen flow rate 30% BIPAP NR G Arterial blood pH measurement with patient temperature correction 7.46 7.37-7.43 Arterial blood carbon dioxide, total measurement (mole s/volume) 32.4 mmol/L 21.0-31.0 Body site RIGHT RADIAL NRG Assessment of wrist artery patency prior to arterial p uncture POSITIVE NRG Setting of ventilation mode NO NR G Measurement of body temperature 36.0 NRG Capillary blood glucose measurement by g lucometer (mass/volume) - 05/26/19 14:29 Capillary blood glucose measurement by glucometer (mas s/volume) 431 mg/dL 70-110 Capillary blood glucose measurement by g lucometer (mass/volume) - 05/26/19 20:57 Capillary blood glucose measurement by glucometer (mas s/volume) 208 mg/dL 70-110 Capillary blood glucose measurement by g lucometer (mass/volume) - 05/27/19 05:26 Capillary blood glucose measurement by glucometer (mas s/volume) 136 mg/dL 70-110 Complete blood count (CBC) with automate d white blood cell (WBC) differential - 05/27/19 08:59 Blood leukocytes automated count (number/volume) 14.2 10*3/uL 4.3-11.0 Blood erythrocytes automated count (number/volume) 3.79 10*6/uL 4.35-5.85 Venous blood hemoglobin measurement (mass/volume) 11.1 g/dL 11.5-16.0 Blood hematocrit (volume fraction) 35 % 35-52 Automated erythrocyte mean corpuscular volume 93 [ foz_us] 80-99 Automated erythrocyte mean corpuscular h emoglobin (mass per erythrocyte) 29 pg 25-34 Automated erythrocyte mean corpuscular h emoglobin concentration measurement (mass/volume) 31 g/dL 32-36 Automated erythrocyte distribution width ratio 14. 9 % 10.0- 14.5 Automated blood platelet count (count/volume) 270 10*3/uL 130-400 Automated blood platelet mean volume measurement 9.7 [foz_us] 7.4-10.4 Automated blood neutrophils/100 leukocytes 82 % 42-75 Automated blood lymphocytes/100 leukocytes 10 % 12-44 Blood monocytes/100 leukocytes 8 % 0-12 Automated blood eosinophils/100 leukocytes 0 % 0-10 Automated blood basophils/100 leukocytes 0 % 0-10 Blood neutrophils automated count (number/volume) 11.6 10*3 1.8-7.8 Blood lymphocytes automated count (number/volume) 1.4 10*3 1.0-4.0 Blood monocytes automated count (number/volume) 1. 1 10*3 0.0-1.0 Automated eosinophil count 0.0 10*3/uL 0 .0-0.3 Automated blood basophil count (count/volume) 0.0 10*3/uL 0.0-0.1 Whole blood basic metabolic panel - 09/14 08:59 Serum or plasma sodium measurement (moles/volume) 141 mmol/L 135-145 Serum or plasma potassium measurement (moles/volume) 4.5 mmol/L 3.6-5.0 Serum or plasma chloride measurement (moles/volume) 102 mmol/L 98-107 Carbon dioxide 31 mmol/L 21-32 Serum or plasma anion gap determination (moles/volume) 8 mmol/L 5-14 Serum or plasma urea nitrogen measurement (mass/volume ) 24 mg/dL 7-18 Serum or plasma creatinine measurement (mass/volume) 0.95 mg/dL 0.60-1.30 Serum or plasma urea nitrogen/creatinine mass ratio 25 NRG Serum or plasma creatinine measurement w ith calculation of estimated glomerular filtration rate 58 NRG Serum or plasma glucose measurement (mass/volume) 124 mg/dL 70-105 Serum or plasma calcium measurement (mass/volume) 9.1 mg/dL 8.5-10.1 Magnesium - 05/27/19 08:59 Magnesium 2.1 mg/dL 1.6-2.4 Manual absolute plasma cell count - 09/14 08:59 Blood monocytes/100 leukocytes 5 % NRG Manual blood segmented neutrophils/100 leukocytes 80 % NRG Blood band neutrophils/100 leukocytes 1 % NRG Manual blood lymphocytes/100 leukocytes 13 % NRG Manual eosinophils/100 leukocytes in nose 1 % NRG Manual blood basophils/100 leukocytes 0 % NRG Blood anisocytosis detection by light microscopy S LIGHT NRG Serum or plasma troponin i.cardiac measu rement (mass/volume) - 05/27/19 08:59 Serum or plasma troponin i.cardiac measurement (mass/v olume) 0.148 ng/mL <0.028 Capillary blood glucose measurement by g lucometer (mass/volume) - 05/27/19 11:45 Capillary blood glucose measurement by glucometer (mas s/volume) 127 mg/dL 70-110 Capillary blood glucose measurement by g lucometer (mass/volume) - 05/27/19 16:14 Capillary blood glucose measurement by glucometer (mas s/volume) 233 mg/dL 70-110 Capillary blood glucose measurement by g lucometer (mass/volume) - 05/27/19 20:53 Capillary blood glucose measurement by glucometer (mas s/volume) 156 mg/dL 70-110 Capillary blood glucose measurement by g lucometer (mass/volume) - 05/28/19 04:26 Capillary blood glucose measurement by glucometer (mas s/volume) 94 mg/dL 70-110 Automated blood complete blood count (he mogram) panel - 05/28/19 05:45 Blood leukocytes automated count (number/volume) 14.5 10*3/uL 4.3-11.0 Blood erythrocytes automated count (number/volume) 3.96 10*6/uL 4.35-5.85 Venous blood hemoglobin measurement (mass/volume) 11.5 g/dL 11.5-16.0 Blood hematocrit (volume fraction) 37 % 35-52 Automated erythrocyte mean corpuscular volume 92 [ foz_us] 80-99 Automated erythrocyte mean corpuscular h emoglobin (mass per erythrocyte) 29 pg 25-34 Automated erythrocyte mean corpuscular h emoglobin concentration measurement (mass/volume) 31 g/dL 32-36 Automated erythrocyte distribution width ratio 14. 9 % 10.0- 14.5 Automated blood platelet count (count/volume) 296 10*3/uL 130-400 Automated blood platelet mean volume measurement 9.8 [foz_us] 7.4-10.4 Comprehensive metabolic panel - 05/28/19 05:45 Serum or plasma sodium measurement (moles/volume) 141 mmol/L 135-145 Serum or plasma potassium measurement (moles/volume) 4.6 mmol/L 3.6-5.0 Serum or plasma chloride measurement (moles/volume) 104 mmol/L 98-107 Carbon dioxide 28 mmol/L 21-32 Serum or plasma anion gap determination (moles/volume) 9 mmol/L 5-14 Serum or plasma urea nitrogen measurement (mass/volume ) 25 mg/dL 7-18 Serum or plasma creatinine measurement (mass/volume) 0.87 mg/dL 0.60-1.30 Serum or plasma urea nitrogen/creatinine mass ratio 29 NRG Serum or plasma creatinine measurement w ith calculation of estimated glomerular filtration rate > NRG Serum or plasma glucose measurement (mass/volume) 92 mg/dL 70-105 Serum or plasma calcium measurement (mass/volume) 9.3 mg/dL 8.5-10.1 Serum or plasma total bilirubin measurement (mass/volu me) 0.3 mg/dL 0.1-1.0 Serum or plasma alkaline phosphatase aisha surement (enzymatic activity/volume) 71 U/L 40-136 Serum or plasma aspartate aminotransfera se measurement (enzymatic activity/volume) 40 U/L 5-34 Serum or plasma alanine aminotransferase measurement (enzymatic activity/volume) 55 U/L 0-55 Serum or plasma protein measurement (mass/volume) 6.3 g/dL 6.4-8.2 Serum or plasma albumin measurement (mass/volume) 3.3 g/dL 3.2-4.5 CALCIUM CORRECTED 9.9 mg/dL 8.5-10.1 Serum or plasma troponin i.cardiac measu rement (mass/volume) - 05/28/19 05:45 Serum or plasma troponin i.cardiac measurement (mass/v olume) 0.132 ng/mL <0.028 Lipid 1996 panel - 05/28/19 05:45 Serum or plasma triglyceride measurement (mass/volume) 111 mg/dL <150 Serum or plasma cholesterol measurement (mass/volume) 191 mg/dL < 200 Serum or plasma cholesterol in HDL measurement (mass/v olume) 73 mg/dL 40-60 Cholesterol in LDL [mass/volume] in serum or plasma by direct assay 91 mg/dL 1-129 Serum or plasma cholesterol in VLDL measurement (mass/ volume) 22 mg/dL 5-40 THYROID STIMULATING HORMONE - 05/28/19 0 5:45 THYROID STIMULATING HORMONE 0.01 u[iU]/mL 0.35-4.94 Serum or plasma thyroxine (T4) free billy urement (mass/volume) - 05/28/19 05:45 Serum or plasma thyroxine (T4) free measurement (mass/ volume) 1.90 ng/dL 0.70-1.48 TRIIODOTHRYONINE T3 FREE - 05/28/19 05:4 5 TRIIODOTHYRONINE T3 FREE 1.77 pg/mL 1.71 -3.71 Serum or plasma troponin i.cardiac measu rement (mass/volume) - 05/28/19 10:20 Serum or plasma troponin i.cardiac measurement (mass/v olume) 0.106 ng/mL <0.028 Capillary blood glucose measurement by g lucometer (mass/volume) - 05/28/19 11:13 Capillary blood glucose measurement by glucometer (mas s/volume) 172 mg/dL 70-110 Hemoglobin A1C - 07/23/19 09:30 % A1C 5.30 % 5.40-6.60 AvGlu 112 mg/dL 70-110 EKG - 08/07/19 21:48 EKG Complete Thyroid Stimulating Hormone - 08/07/19 2 1:50 TSH 0.01 mIU/mL 0.32-5.00 MRSA Screen - 08/07/19 22:30 FINAL CULTURE RESULTS MRSA Negative Nasal Culture MEDIA PLATED Setup at 2240 on 08/07/2019 Rapid Drug Screen + ETOH,Medical - 08/07 23:20 Amphetamine NEGATIVE NEGATIVE Barbiturates NEGATIVE NEGATIVE Benzodiazepines NEGATIVE NEGATIVE Cocaine NEGATIVE NEGATIVE Ethanol, Urine <10.00 mg/dL 20.00-80.00 Marijuana NEGATIVE NEGATIVE Methylenedioxymethamphetamine NEGATIVE NEGATIVE Opiates POSITIVE NEGATIVE Oxycodone NEGATIVE NEGATIVE Phencyclidine NEGATIVE NEGATIVE Propoxyphene NEGATIVE NEGATIVE Tricyclic Antidepressant POSITIVE NEGAT ANNABEL Urine Culture - 08/07/19 23:20 PRELIM CULTURE RESULTS No Growth 24 hours FINAL CULTURE RESULTS No Growth 48 hours MEDIA PLATED Setup at 23:43 on 08/07/2019 CULTURE SOURCE cath urine BMP - 08/08/19 05:00 Anion Gap 14 6-14 BUN 29 mg/dL 5-25 Calcium 8.9 mg/dL 8.3-10.4 Chloride 104 mmol/L 95-114 CO2 29 mEq/L 22-33 Creat 1.27 mg/dL 0.50-1.50 eGFR 42 mL/min/1.73m2 >59 Glucose 78 mg/dL 70-110 Osmo 298 280-295 Potassium 5.4 mmol/L 3.5-5.3 Sodium 142 mmol/L 134-148 Thyroid Stimulating Hormone - 08/11/19 1 1:26 TSH 0.01 mIU/mL 0.32-5.00 MRSA Screen - 08/11/19 11:26 FINAL CULTURE RESULTS MRSA Negative Nasal Culture MEDIA PLATED Setup at 14:38 on 08/11/2019 Lipid Panel - 08/12/19 05:00 C/HDL 3.7 3.7-6.7 Cholesterol 159 mg/dL 100-240 HDL 43 mg/dL 30-85 LDL-Calculated 101 mg/dL 0-100 Trig 75 mg/dL 35-160 VLDL 15 mg/dL 0-42 Rapid Drug Screen + ETOH,Medical - 08/12 05:45 Amphetamine NEGATIVE NEGATIVE Barbiturates NEGATIVE NEGATIVE Benzodiazepines POSITIVE NEGATIVE Cocaine NEGATIVE NEGATIVE Ethanol, Urine <10.00 mg/dL 20.00-80.00 Marijuana NEGATIVE NEGATIVE Methylenedioxymethamphetamine NEGATIVE NEGATIVE Opiates POSITIVE NEGATIVE Oxycodone NEGATIVE NEGATIVE Phencyclidine NEGATIVE NEGATIVE Propoxyphene NEGATIVE NEGATIVE Tricyclic Antidepressant POSITIVE NEGAT ANNABEL Urine Culture - 08/12/19 06:06 PRELIM CULTURE RESULTS 20,000-50,000 Gram Ne gative SARAH / ID to Follow MEDIA PLATED Setup at 06:12 on 08/12/2019 CULTURE SOURCE random catch urine Sensi - 08/12/19 06:06 FINAL CULTURE RESULTS Proteus mirabilis (Isolate 1 ) Ampicillin/Sulbactam >16/8 Ampicillin >16 Amoxicillin/K Clavulanate <=8/4 Ceftriaxone <=8 Ciprofloxacin >2 Nitrofurantoin 64 Gentamicin <=4 Levofloxacin 4 Trimethoprim/ Sulfamethoxazole >2/38 Tetracycline >8 Amikacin <=16 Aztreonam <=8 Ceftazidime <=1 Ceftazidime/K Clavulanate <=0.25 Cephalothin >16 Cefotaxime <=2 Cefotaxime/K Clavulanate <=0.5 Cefoxitin <=8 Cefazolin >16 Cefepime <=8 Cefuroxime <=4 Ertapenem <=1 Imipenem <=4 Meropenem <=4 Piperacillin/Tazobactam <=16 Piperacillin >64 Tigecycline N/R Tobramycin <=4 Comprehensive Metabolic Panel - 08/18/19 05:30 Albumin 3.1 g/dL 3.6-5.1 ALP 75 U/L 35-130 ALT 30 U/L 6-45 Anion Gap 12 6-14 AST 22 U/L 2-40 BUN 26 mg/dL 5-25 Calcium 8.4 mg/dL 8.3-10.4 Chloride 105 mmol/L 95-114 CO2 28 mEq/L 22-33 Creat 1.05 mg/dL 0.50-1.50 eGFR 52 mL/min/1.73m2 >59 Globulin 2.4 g/dL 2.3-3.5 Glucose 97 mg/dL 70-110 Osmo 296 280-295 Potassium 4.4 mmol/L 3.5-5.3 Sodium 141 mmol/L 134-148 TBil 0.3 mg/dL 0.2-1.2 TP 5.5 g/dL 6.0-8.3 Comprehensive Metabolic Panel - 09/03/19 06:26 Albumin 3.3 g/dL 3.6-5.1 ALP 98 U/L 35-130 ALT 29 U/L 6-45 Anion Gap 15 6-14 AST 28 U/L 2-40 BUN 10 mg/dL 5-25 Calcium 8.7 mg/dL 8.3-10.4 Chloride 106 mmol/L 95-114 CO2 27 mEq/L 22-33 Creat 0.97 mg/dL 0.50-1.50 eGFR 57 mL/min/1.73m2 >59 Globulin 2.9 g/dL 2.3-3.5 Glucose 128 mg/dL 70-110 Osmo 296 280-295 Potassium 4.8 mmol/L 3.5-5.3 Sodium 143 mmol/L 134-148 TBil 0.3 mg/dL 0.2-1.2 TP 6.2 g/dL 6.0-8.3 Urinalysis - 09/11/19 15:48 Icotest N/A Negative Urine Volume Urine Volume Sufficient (10mL) Urine-Appearance Clear Clear Urine-Bacteria Negative Urine-Bilirubin Negative Negative Urine-Blood Negative Negative Urine-Color Yellow Colorless-[place] ow Urine-Epithelial Cells 0-5/HPF Urine-Glucose Negative Negative Urine-Ketones Negative Negative Urine-Leukocytes Negative Negative Urine-Nitrite Negative Negative Urine-Other Urine Saved if Culture Need ed (48hrs from time of collection) Urine-pH 6.5 5-8.5 Urine-Protein Negative Negative Urine-RBC Negative Urine-Specific [place] 1.015 1.000-1 .030 Urine-WBC Negative Urobilinogen 0.2 0.2-1.0 Comprehensive Metabolic Panel - 10/22/19 06:14 Albumin 3.5 g/dL 3.6-5.1 ALP 98 U/L 35-130 ALT 17 U/L 6-45 Anion Gap 14 6-14 AST 20 U/L 2-40 BUN 23 mg/dL 5-25 Calcium 8.9 mg/dL 8.3-10.4 Chloride 104 mmol/L 95-114 CO2 28 mEq/L 22-33 Creat 1.29 mg/dL 0.50-1.50 eGFR 41 mL/min/1.73m2 >59 Globulin 2.9 g/dL 2.3-3.5 Glucose 103 mg/dL 70-110 Osmo 295 280-295 Potassium 5.1 mmol/L 3.5-5.3 Sodium 141 mmol/L 134-148 TBil 0.2 mg/dL 0.2-1.2 TP 6.4 g/dL 6.0-8.3 Hemoglobin A1C - 10/29/19 06:18 % A1C 6.00 % 5.40-6.60 AvGlu 138 mg/dL 70-110 Urinalysis - 11/04/19 09:53 Icotest N/A Negative Urine Volume Urine Volume Insufficient ( <10mL) May Affect Microscopic Exam Urine-Appearance Cloudy Clear Urine-Bacteria 1+ Urine-Bilirubin Negative Negative Urine-Blood Trace-lysed Negative Urine-Color Yellow Colorless-[place] ow Urine-Epithelial Cells 10-20/HPF Urine-Glucose Negative Negative Urine-Ketones Negative Negative Urine-Leukocytes 2+ Negative Urine-Nitrite Negative Negative Urine-Other Culture to follow Urine-pH 5.0 5-8.5 Urine-Protein Negative Negative Urine-RBC Rare/HPF Urine-Specific [place] 1.020 1.000-1 .030 Urine-WBC TNTC Urobilinogen 0.2 E.U./dL 0.2-1.0 Urine Culture - 11/04/19 09:53 PRELIM CULTURE RESULTS 20,000-50,000 Gram Ne gative SARAH / ID to Follow [id number]<10,000 Gram Positive Mixed Ayla Probable Skin Contaminant MEDIA PLATED Setup at 11:49 on 11/04/2019 CULTURE SOURCE CC Sensi - 11/04/19 09:53 FINAL CULTURE RESULTS Proteus mirabilis (Isolate 1 ) Ampicillin/Sulbactam >16/8 Ampicillin >16 Amoxicillin/K Clavulanate <=8/4 Ceftriaxone <=8 Ciprofloxacin >2 Nitrofurantoin 64 Gentamicin <=4 Levofloxacin 4 Trimethoprim/ Sulfamethoxazole >2/38 Tetracycline >8 Amikacin <=16 Aztreonam <=8 Ceftazidime <=1 Ceftazidime/K Clavulanate <=0.25 Cephalothin >16 Cefotaxime <=2 Cefotaxime/K Clavulanate <=0.5 Cefoxitin <=8 Cefazolin >16 Cefepime <=8 Cefuroxime <=4 Ertapenem <=1 Imipenem <=4 Meropenem <=4 Piperacillin/Tazobactam <=16 Piperacillin >64 Tigecycline N/R Tobramycin <=4 Comprehensive Metabolic Panel - 11/04/19 10:28 Albumin 3.7 g/dL 3.6-5.1 ALP 79 U/L 35-130 ALT 19 U/L 6-45 Anion Gap 15 6-14 AST 22 U/L 2-40 BUN 24 mg/dL 5-25 Calcium 9.2 mg/dL 8.3-10.4 Chloride 103 mmol/L 95-114 CO2 27 mEq/L 22-33 Creat 1.37 mg/dL 0.50-1.50 eGFR 38 mL/min/1.73m2 >59 Globulin 3.5 g/dL 2.3-3.5 Glucose 130 mg/dL 70-110 Osmo 295 280-295 Potassium 4.7 mmol/L 3.5-5.3 Sodium 140 mmol/L 134-148 TBil 0.3 mg/dL 0.2-1.2 TP 7.2 g/dL 6.0-8.3 Comprehensive Metabolic Panel - 12/01/19 12:45 Albumin 3.8 g/dL 3.6-5.1 ALP 74 U/L 35-130 ALT 19 U/L 6-45 Anion Gap 14 6-14 AST 25 U/L 2-40 BUN 40 mg/dL 5-25 Calcium 8.9 mg/dL 8.3-10.4 Chloride 104 mmol/L 95-114 CO2 26 mEq/L 22-33 Creat 1.54 mg/dL 0.50-1.50 eGFR 33 mL/min/1.73m2 >59 Globulin 2.9 g/dL 2.3-3.5 Glucose 95 mg/dL 70-110 Osmo 296 280-295 Potassium 5.3 mmol/L 3.5-5.3 Sodium 139 mmol/L 134-148 TBil 0.3 mg/dL 0.2-1.2 TP 6.7 g/dL 6.0-8.3 Urine Culture - 12/01/19 12:45 PRELIM CULTURE RESULTS >100,000 Gram Negativ e SARAH / ID to Follow MEDIA PLATED Setup at 13:08 on 12/01/2019 CULTURE SOURCE CC Sensi - 12/01/19 12:45 FINAL CULTURE RESULTS Proteus mirabilis (Isolate 1 ) Ampicillin/Sulbactam 16/8 Ampicillin >16 Amoxicillin/K Clavulanate <=8/4 Ceftriaxone <=8 Ciprofloxacin 2 Nitrofurantoin 64 Gentamicin <=4 Levofloxacin <=2 Trimethoprim/ Sulfamethoxazole >2/38 Tetracycline >8 Amikacin <=16 Aztreonam <=8 Ceftazidime <=1 Ceftazidime/K Clavulanate <=0.25 Cephalothin <=8 Cefotaxime <=2 Cefotaxime/K Clavulanate <=0.5 Cefoxitin <=8 Cefazolin <=8 Cefepime <=8 Cefuroxime <=4 Ertapenem <=1 Imipenem <=4 Meropenem <=4 Piperacillin/Tazobactam <=16 Piperacillin <=16 Tigecycline N/R Tobramycin <=4 Thyroid Stimulating Hormone - 12/03/19 0 9:13 TSH 17.74 mIU/mL 0.32-5.00 Lipid Panel - 01/30/20 08:53 C/HDL 3.5 3.7-6.7 Cholesterol 145 mg/dL 100-240 HDL 42 mg/dL 30-85 LDL-Calculated 84 mg/dL 0-100 Trig 97 mg/dL 35-160 VLDL 19 mg/dL 0-42 Urine Culture - 01/30/20 08:53 PRELIM CULTURE RESULTS >100,000 Gram Negativ e Non-Lactose Finished Yarn Examiner SARAH / ID to Follow MEDIA PLATED Setup at 09:08 on 01/30/2020 CULTURE SOURCE clean catch Sensi - 01/30/20 08:53 FINAL CULTURE RESULTS Proteus mirabilis (Isolate 1 ) Ampicillin/Sulbactam >16/8 Ampicillin >16 Amoxicillin/K Clavulanate <=8/4 Ceftriaxone <=8 Ciprofloxacin >2 Nitrofurantoin 64 Gentamicin <=4 Levofloxacin <=2 Trimethoprim/ Sulfamethoxazole >2/38 Tetracycline >8 Amikacin <=16 Aztreonam <=8 Ceftazidime <=1 Ceftazidime/K Clavulanate <=0.25 Cephalothin >16 Cefotaxime <=2 Cefotaxime/K Clavulanate <=0.5 Cefoxitin <=8 Cefazolin >16 Cefepime <=8 Cefuroxime <=4 Ertapenem <=1 Imipenem <=4 Meropenem <=4 Piperacillin/Tazobactam <=16 Piperacillin >64 Tigecycline N/R Tobramycin <=4 Complete blood count (CBC) with automate d white blood cell (WBC) differential - 02/05/20 11:30 Blood leukocytes automated count (number/volume) 12.1 10*3/uL 4.3-11.0 Blood erythrocytes automated count (number/volume) 3.28 10*6/uL 4.35-5.85 Venous blood hemoglobin measurement (mass/volume) 9.7 g/dL 11.5-16.0 Blood hematocrit (volume fraction) 30 % 35-52 Automated erythrocyte mean corpuscular volume 92 [ foz_us] 80-99 Automated erythrocyte mean corpuscular h emoglobin (mass per erythrocyte) 30 pg 25-34 Automated erythrocyte mean corpuscular h emoglobin concentration measurement (mass/volume) 32 g/dL 32-36 Automated erythrocyte distribution width ratio 14. 9 % 10.0- 14.5 Automated blood platelet count (count/volume) 452 10*3/uL 130-400 Automated blood platelet mean volume measurement 8.4 [foz_us] 7.4-10.4 Automated blood neutrophils/100 leukocytes 69 % 42-75 Automated blood lymphocytes/100 leukocytes 21 % 12-44 Blood monocytes/100 leukocytes 8 % 0-12 Automated blood eosinophils/100 leukocytes 2 % 0-10 Automated blood basophils/100 leukocytes 0 % 0-10 Blood neutrophils automated count (number/volume) 8.3 10*3 1.8-7.8 Blood lymphocytes automated count (number/volume) 2.5 10*3 1.0-4.0 Blood monocytes automated count (number/volume) 1. 0 10*3 0.0-1.0 Automated eosinophil count 0.2 10*3/uL 0 .0-0.3 Automated blood basophil count (count/volume) 0.1 10*3/uL 0.0-0.1 Comprehensive metabolic panel - 02/05/20 11:30 Serum or plasma sodium measurement (moles/volume) 136 mmol/L 135-145 Serum or plasma potassium measurement (moles/volume) 4.8 mmol/L 3.6-5.0 Serum or plasma chloride measurement (moles/volume) 105 mmol/L 98-107 Carbon dioxide 22 mmol/L 21-32 Serum or plasma anion gap determination (moles/volume) 9 mmol/L 5-14 Serum or plasma urea nitrogen measurement (mass/volume ) 17 mg/dL 7-18 Serum or plasma creatinine measurement (mass/volume) 1.32 mg/dL 0.60-1.30 Serum or plasma urea nitrogen/creatinine mass ratio 13 NRG Serum or plasma creatinine measurement w ith calculation of estimated glomerular filtration rate 40 NRG Serum or plasma glucose measurement (mass/volume) 104 mg/dL 70-105 Serum or plasma calcium measurement (mass/volume) 8.9 mg/dL 8.5-10.1 Serum or plasma total bilirubin measurement (mass/volu me) 0.3 mg/dL 0.1-1.0 Serum or plasma alkaline phosphatase aisha surement (enzymatic activity/volume) 74 U/L 40-136 Serum or plasma aspartate aminotransfera se measurement (enzymatic activity/volume) 18 U/L 5-34 Serum or plasma protein measurement (mass/volume) 7.2 g/dL 6.4-8.2 Serum or plasma albumin measurement (mass/volume) 3.2 g/dL 3.2-4.5 CALCIUM CORRECTED 9.5 mg/dL 8.5-10.1 Serum or plasma C reactive protein measu rement (mass/volume) - 02/05/20 11:30 Serum or plasma C reactive protein measurement (mass/v olume) 6.63 mg/dL 0.00-0.50 Encounters ACCT No. Visit Date/Time Discharge Status Pt. Type Provider Facility Loc./Unit Complaint [id number] 01/29/2019 17:45:00 Document Registration [id number] 01/29/2019 17:45:00 Document Registration [id number] 10/24/2019 12:56:00 23:59:59 CLS Outpatient UZMA BRAGG MD [facility] RAD HALLUCINATIONS, DELUSIONS [id number] 10/23/2019 08:40:00 23:59:59 CLS Outpatient ESDRAS ARRIAZA [facility] RAD HALLUCINATIONS, DELUSIONS [id number] 05/25/2019 10:44:00 17:14:00 DIS Inpatient ALEXANDRO COUGHLIN MD [facility] 4TH COPD EXACERBATION [id number] 02/05/2020 11:49:00 Document Registration [id number] 07/10/2019 09:33:00 Document Registration [id number] 01/30/2020 08:46:00 01/30/2020 23:59 :00 DIS Outpatient González Cowan [id number] 12/03/2019 00:00:00 12/03/2019 23:59 :00 DIS Outpatient Ryan Lamar [id number] 12/01/2019 12:40:00 12/01/2019 23:59 :00 DIS Outpatient Danielle Boothe [id number] 11/04/2019 09:35:00 11/04/2019 13:15 :00 DIS Outpatient BEATRIZ DALY [facility] ER [id number] 10/29/2019 06:17:00 10/29/2019 23:59 :00 DIS Outpatient Ryan Lamar [id number] 10/22/2019 06:13:00 10/22/2019 23:59 :00 DIS Outpatient Ryan Lamar [id number] 10/15/2019 06:15:00 10/15/2019 23:59 :00 DIS Outpatient Ryan Lamar [id number] 10/08/2019 06:14:00 10/08/2019 23:59 :00 DIS Outpatient Ryan Lamar [id number] 09/11/2019 15:43:00 09/11/2019 23:59 :00 DIS Outpatient Brianda Ryan [id number] 09/03/2019 06:25:00 09/03/2019 23:59 :00 DIS Outpatient Ryan Lamar [id number] 08/11/2019 11:17:00 08/18/2019 14:10 :00 DIS Inpatient THEODORE MONZON [facility] [id number] 08/07/2019 21:22:00 08/08/2019 13:05 :00 [id number] 08/07/2019 08:47:00 08/07/2019 11:21 :00 DIS Outpatient LUIS KENYON APRN [facility] ER [id number] 07/23/2019 09:29:00 07/23/2019 23:59: 00 DIS Outpatient Ryan Lamar [id number] 05/25/2019 07:34:00 05/25/2019 10:00: 00 DIS Outpatient Jaylon Low [place] [facility] enter ER [id number] 05/21/2019 20:28:00 05/21/2019 23:59: 00 DIS Outpatient Maxine Thompson [id number] 04/16/2019 06:03:00 04/16/2019 23:59: 00 DIS Outpatient Maxine Thompson [id number] 03/12/2019 06:12:00 03/12/2019 23:59: 00 DIS Outpatient Maxine Thompson [id number] 02/02/2019 00:00:00 02/02/2019 23:59: 00 DIS Outpatient Thompson, Rosey-Pablo [id number] 01/29/2019 13:49:00 01/30/2019 14:05: 00 DIS Outpatient Maxine Thompson [facility] MED-SURG [id number] 05/21/2018 14:07:00 05/21/2018 23:59: 00 DIS Outpatient Maxine Thompson [id number] 01/25/2017 19:45:00 01/25/2017 22:12: 00 DIS Outpatient Miguelangel [facility] ER [id number] 05/21/2018 08:51:00 Document Registration [id number] 01/25/2017 20:57:57 Document Registration
[2020-02-05 12:31] LABS: BILIRUBIN,URINE NEGATIVE (NEGATIVE); CLARITY,URINE SL CLOUDY; COLOR,URINE DARK YELLOW; GLUCOSE, URINE (UA) NEGATIVE (NEGATIVE); KETONES,URINE NEGATIVE (NEGATIVE); LEUKOCYTE ESTERASE ,URINE 3+ (NEGATIVE); NITRITE,URINE NEGATIVE (NEGATIVE); PROTEIN,URINE 2+ (NEGATIVE)
[2020-02-05] MEDS ORDERED: KETOROLAC 30 MG/ML VIAL IVP STA (12:31)
[2020-02-05] MEDS ORDERED: ONDANSETRON 4 MG/2 ML (SDV) Z0FRAN IVP ONE (12:45)
[2020-02-05 12:50] LABS: BACTERIA,URINE TRACE /HPF; RBC,URINE 50-100 /HPF; WBC,URINE 50-100 /HPF
--- NOTE | 2020-02-05 13:14 | ED GU-Female ---
General Chief Complaint: - Urinary Stated Complaint: BLOOD IN URINE Nursing Triage Note: has been recently on antibiotics, is currently on augmentin for blood in urine, is having pain worse than child , was sent here by PCP for worry of stones Nursing Sepsis Screen: No Definite Risk History of Present Illness Date Seen by Provider: Feb 05, 2020 Time Seen by Provider: 11:05 Initial Comments 69-year-old female was started on Omnicef 02/01/20 for UTI, then switched to Augmentin yesterday. She had 1 dose last pm of the Augmentin. She reports mild nausea and complained of vaginal pain. Today she noted hematuria with urination. She denies history of kidney stones, and has not noted this stone in her brief or urine. Timing/Duration: this morning, getting worse Severity/Quality: mild Location: suprapubic Radiation: none Prior Genitourinary Problems: none Associated Symptoms: denies symptoms Allergies and Home Medications Allergies Coded Allergies: No Known Drug Allergies (Unverified , 05/25/19) Home Medications Albuterol Sulfate 1 Puff Puff, 2 PUFF INH Q4H PRN for SHORTNESS OF BREATH, (Reported) 1 PUFF = 90 MCG Amitriptyline HCl 25 Mg Tablet, 25 MG PO HS, (Reported) Aspirin 81 Mg Tablet.dr, 81 MG PO DAILY, (Reported) Aspirin 81 Mg Tab.chew, 81 MG PO DAILY Prescribed by: TRINY LEWIS on 05/28/19 1132 Atorvastatin Calcium 10 Mg Tablet, 10 MG PO HS, (Reported) Budesonide/Formoterol Fumarate 10.2 Gm Hfa.aer.ad, 2 PUFF INH BID, (Reported) Calcium Carb/Magnesium Hydrox 1 Each Tab.chew, 1 TAB.CHEW PO Q6H PRN for INDIGESTION, (Reported) Diclofenac Sodium 50 Mg Tablet.dr, 50 MG PO BID, (Reported) Furosemide 20 Mg Tablet, 20 MG PO DAILY, (Reported) Hydrocodone Bit/Acetaminophen 1 Each Tablet, 1 TAB PO Q8H PRN for PAIN-MODERATE, (Reported) Levothyroxine Sodium 125 Mcg Tablet, 125 MCG PO DAILY Prescribed by: RAJESH GABRIEL on 05/28/19 1158 Lisinopril 10 Mg Tablet, 10 MG PO DAILY, (Reported) Metformin HCl 500 Mg Tablet, 500 MG PO TID, (Reported) Metoprolol Succinate 25 Mg Tab.er.24h, 25 MG PO DAILY Prescribed by: TRINY LEWIS on 05/28/19 1132 Miconazole Nitrate 142 Gm Cream..g., TP BID, (Reported) Omeprazole 20 Mg Capsule.dr, 20 MG PO DAILY, (Reported) Ondansetron 4 Mg Tab.rapdis, 4 MG PO Q6H PRN for NAUSEA/VOMITING Prescribed by: SHANICE CHRISTIAN on 02/05/20 1400 Potassium Chloride 10 Meq Tab.er.prt, 10 MEQ PO DAILY, (Reported) Prednisone 20 Mg Tab, 40 MG PO DAILY@0700 Prescribed by: RAJESH GABRIEL on 05/27/19 1130 Ropinirole HCl 1 Mg Tablet, 1 MG PO DAILY, (Reported) Tizanidine HCl 2 Mg Tablet, 2 MG PO Q8H PRN for MUSCLE SPASMS, (Reported) Venlafaxine HCl 150 Mg Cap.er.24h, 150 MG PO BID, (Reported) Patient Home Medication List Home Medication List Reviewed: Yes Review of Systems Review of Systems Constitutional: no symptoms reported, see HPI Genitourinary: see HPI, burning, hematuria All Other Systemes Reviewed Negative Unless Noted: Yes Past Vcqmtam-Siqquq-Oankzq Hx Past Med/Social Hx: Reviewed Nursing Past Med/Soc Hx Patient Social History Alcohol Use: Denies Use Recreational Drug Use: No 2nd Hand Smoke Exposure: No Recent Foreign Travel: No Contact w/Someone Who Travel: No Recent Infectious Disease Expo: No Recent Hopitalizations: No Seasonal Allergies Seasonal Allergies: No Past Medical History Appendectomy Respiratory: Yes COPD Currently Using CPAP: No Currently Using BIPAP: No Cardiac: Yes Hypertension Neurological: No Genitourinary: Yes Kidney Infection Gastrointestinal: Yes (constipation) Endocrine: Yes Hypothyroidsim HEENT: No Cancer: No Psychosocial: No Integumentary: No Blood Disorders: No Physical Exam Vital Signs Vital Signs - First Documented 02/05/20 02/05/20 11:02 14:07 Temp 36.7 Pulse 77 Resp 18 B/P (MAP) 127/85 (99) Pulse Ox 97 O2 Delivery Room Air Capillary Refill : Less Than 3 Seconds Height, Weight, BMI Height: '" Weight: lbs. oz. kg; 39.00 BMI Method: General Appearance: WD/WN, no apparent distress Cardiovascular: normal peripheral pulses, regular rate, rhythm, no murmur Respiratory: chest non-tender, lungs clear, normal breath sounds, no respiratory distress Gastrointestinal: normal bowel sounds, non tender, soft; No distended, No guarding, No rebound, No tenderness Neurologic/Psychiatric: no motor/sensory deficits, alert, normal mood/affect, oriented x 3 Skin: normal color, warm/dry Progress/Results/Core Measures Suspected Sepsis Recent Fever Within 48 Hours: No Infection Criteria Present: Documented Infection New/Unexplained Altered Menta: No Sepsis Screen: No Definite Risk SIRS Temperature: Pulse: 77 Respiratory Rate: 18 Laboratory Tests 02/05/20 11:30: White Blood Count 12.1H Blood Pressure 127 /85 Mean: 99 Laboratory Tests 02/05/20 11:30: Creatinine 1.32H, Platelet Count 452H, Total Bilirubin 0.3 Results/Orders Lab Results Laboratory Tests Test 02/05/20 11:30 02/05/20 12:24 Range/Units White Blood Count 12.1 H 4.3-11.0 10^3/uL Red Blood Count 3.28 L 4.35-5.85 10^6/uL Hemoglobin 9.7 L 11.5-16.0 G/DL Hematocrit 30 L 35-52 % Mean Corpuscular Volume 92 80-99 FL Mean Corpuscular Hemoglobin 30 25-34 PG Mean Corpuscular Hemoglobin Concent 32 32-36 G/DL Red Cell Distribution Width 14.9 H 10.0-14.5 % Platelet Count 452 H 130-400 10^3/uL Mean Platelet Volume 8.4 7.4-10.4 FL Neutrophils (%) (Auto) 69 42-75 % Lymphocytes (%) (Auto) 21 12-44 % Monocytes (%) (Auto) 8 0-12 % Eosinophils (%) (Auto) 2 0-10 % Basophils (%) (Auto) 0 0-10 % Neutrophils # (Auto) 8.3 H 1.8-7.8 X 10^3 Lymphocytes # (Auto) 2.5 1.0-4.0 X 10^3 Monocytes # (Auto) 1.0 0.0-1.0 X 10^3 Eosinophils # (Auto) 0.2 0.0-0.3 10^3/uL Basophils # (Auto) 0.1 0.0-0.1 10^3/uL Sodium Level 136 135-145 MMOL/L Potassium Level 4.8 3.6-5.0 MMOL/L Chloride Level 105 98-107 MMOL/L Carbon Dioxide Level 22 21-32 MMOL/L Anion Gap 9 5-14 MMOL/L Blood Urea Nitrogen 17 7-18 MG/DL Creatinine 1.32 H 0.60-1.30 MG/DL Estimat Glomerular Filtration Rate 40 BUN/Creatinine Ratio 13 Glucose Level 104 70-105 MG/DL Calcium Level 8.9 8.5-10.1 MG/DL Corrected Calcium 9.5 8.5-10.1 MG/DL Total Bilirubin 0.3 0.1-1.0 MG/DL Aspartate Amino Transf (AST/SGOT) 18 5-34 U/L Alanine Aminotransferase (ALT/SGPT) 14 0-55 U/L Alkaline Phosphatase 74 40-136 U/L C-Reactive Protein High Sensitivity 6.63 H 0.00-0.50 MG/DL Total Protein 7.2 6.4-8.2 GM/DL Albumin 3.2 3.2-4.5 GM/DL Urine Color DARK YELLOW Urine Clarity SL CLOUDY Urine pH 7.0 5-9 Urine Specific [place] 1.020 1.016-1.022 Urine Protein 2+ H NEGATIVE Urine Glucose (UA) NEGATIVE NEGATIVE Urine Ketones NEGATIVE NEGATIVE Urine Nitrite NEGATIVE NEGATIVE Urine Bilirubin NEGATIVE NEGATIVE Urine Urobilinogen 0.2 < = 1.0 MG/DL Urine Leukocyte Esterase 3+ H NEGATIVE Urine RBC (Auto) 3+ H NEGATIVE Urine RBC 50-100 H /HPF Urine WBC 50-100 H /HPF Urine Squamous Epithelial Cells 2-5 /HPF Urine Crystals NONE /LPF Urine Bacteria TRACE /HPF Urine Casts NONE /LPF Urine Mucus NEGATIVE /LPF Urine Culture Indicated YES My Orders Orders - SHANICE CHRISTIAN Ketorolac Injection (Toradol Injection) (02/05/20 12:31) Ondansetron Injection (Zofran Injectio (02/05/20 12:45) Ct Abd/Pelvis Wo(Kidney Stone) (02/05/20 12:32) Medications Given in ED Current Medications Medications Dose Ordered Sig/Brittney Route Start Time Stop Time Status Last Admin Dose Admin Ondansetron HCl 4 mg ONCE ONCE IVP 02/05/20 12:45 02/05/20 12:46 DC 02/05/20 12:43 4 MG Vital Signs/I&O 02/05/20 02/05/20 11:02 14:07 Temp 36.7 36.7 Pulse 77 77 Resp 18 18 B/P (MAP) 127/85 (99) 99/60 (99) Pulse Ox 97 O2 Delivery Room Air Capillary Refill : Less Than 3 Seconds Blood Pressure Mean: 99 Progress Note : Time: 11:05 Progress Note Patient seen and evaluated, will obtain labs and reevaluate. Normal saline 1 L per IV 1130 Toradol 15 mg IV for pain and Zofran 4 mg IV for nausea. 1145 Creatinine Clearance is 24 ml/min. we'll obtain CT of the abdomen and pelvis for kidney stones. 1230 patient reports nausea is improved, pain is slightly better. [address] results reviewed with patient and her daughter, options and trying different antibiotics were discussed. The daughter (a nurse) would like to continue on the Augmentin, based on urine culture and she has only taken [address] Teixeira for next week, made. Discharge instructions and return precautions reviewed. All questions answered. Diagnostic Imaging Diagonstic Imaging: CT Plain Films/CT/US/NM/MRI: abdomen, pelvis Comments NAME: NAT ACEVEDO [employer] REC#: [id number] PT STATUS: REG ER : 1950 PHYSICIAN: SHANICE CHRISTIAN ADMIT DATE: 02/05/20/ER Draft Date of Exam:02/05/20 CT ABD/PELVIS WO(KIDNEY STONE) PROCEDURE: CT urinary tract, rule out kidney stone. TECHNIQUE: Multiple contiguous axial images were obtained through the abdomen and pelvis without the use of intravenous contrast. Auto Exposure Controls were utilized during the CT exam to meet ALARA standards for radiation dose reduction. INDICATION: Vaginal pain and hematuria. COMPARISON: No prior studies are available for comparison. FINDINGS: The lung bases are clear. No discrete liver mass is detected. Gallbladder is unremarkable. No biliary ductal dilatation is identified. The pancreas and spleen are unremarkable. No adrenal mass is detected. Right kidney is unremarkable. There is some dilatation to the left renal collecting system and left ureter. The dilated left ureter is traced into the pelvis. No definite radiopaque calculus is seen. There is mild periureteral inflammatory stranding. There is some questionable wall thickening of the urinary bladder anteriorly. No bladder calculi are seen. Aorta is heavily calcified but nonaneurysmal. The small and large bowel loops are normal in caliber. There is no obstruction. There is no free fluid or fluid collection. Note is made of a tiny fat-containing umbilical hernia. The bony structures show multilevel degenerative disc disease. IMPRESSION: 1. There is bqjj-ob-rrlfrean left hydroureteronephrosis. This is traced to the level of the urinary bladder. No definite obstructing calculi are detected. Possibility of recently passed calculus could produce a similar appearance. There is some periureteral inflammatory stranding. There is some questionable bladder wall thickening anteriorly. While this could be owing to cystitis, other etiologies cannot be entirely excluded and correlation with cystoscopy would be useful. No other significant abnormality is identified. Dictated on workstation # [id number] Dict: 02/05/20 1319 Trans: 02/05/20 1328 [id number] Interpreted by: SIMONE STATON MD Electronically signed by: Reviewed: Reviewed by Me Departure Impression Primary Impression: Hematuria Qualified Codes: R31.9 - Hematuria, unspecified Additional Impression: Bladder wall thickening Disposition: HOME, SELF-CARE Condition: Improved Departure-Patient Inst. Decision time for Depature: 13:30 Referrals: ANDRES DIAZ DAVID F MD (PCP/Family) Primary Care Physician JOSE C TEIXEIRA MD Patient Instructions: Urinary Tract Infection, Adult (DC) Add. Discharge Instructions: Appt with Dr. Teixeira SunFebruary 10 at 3:00 Continue to take Augmentin as previously prescribed. Continue to eat 1 cup of yogurt daily and take probiotics. Follow-up with Dr. Sarmiento if symptoms are not improving or worsen Alternate between Tylenol 650 mg and ibuprofen 600 mg every 4 hours for pain or fever. Water intake, 16 ounces every 2-3 hours while awake. Return to emergency department for new, urgent health care needs. All discharge instructions reviewed with patient and/or family. Voiced understanding. Scripts Ondansetron (Ondansetron Odt) 4 Mg Tab.rapdis 4 MG PO Q6H PRN for NAUSEA/VOMITING, #8 TAB 0 Refills Prov: SHANICE CHRISTIAN 02/05/20 Copy Copies To 1: ANDRES DIAZ DO; JOSE C TEIXEIRA MD, AMY ARNP Feb 05, 2020 13:13
--- NOTE | 2020-02-05 13:28 | Diagnostic Imaging Report ---
PROCEDURE: CT urinary tract, rule out kidney stone. TECHNIQUE: Multiple contiguous axial images were obtained through the abdomen and pelvis without the use of intravenous contrast. Auto Exposure Controls were utilized during the CT exam to meet ALARA standards for radiation dose reduction. INDICATION: Vaginal pain and hematuria. COMPARISON: No prior studies are available for comparison. FINDINGS: The lung bases are clear. No discrete liver mass is detected. Gallbladder is unremarkable. No biliary ductal dilatation is identified. The pancreas and spleen are unremarkable. No adrenal mass is detected. Right kidney is unremarkable. There is some dilatation to the left renal collecting system and left ureter. The dilated left ureter is traced into the pelvis. No definite radiopaque calculus is seen. There is mild periureteral inflammatory stranding. There is some questionable wall thickening of the urinary bladder anteriorly. No bladder calculi are seen. Aorta is heavily calcified but nonaneurysmal. The small and large bowel loops are normal in caliber. There is no obstruction. There is no free fluid or fluid collection. Note is made of a tiny fat-containing umbilical hernia. The bony structures show multilevel degenerative disc disease. IMPRESSION: 1. There is [id number] left hydroureteronephrosis. This is traced to the level of the urinary bladder. No definite obstructing calculi are detected. Possibility of recently passed calculus could produce a similar appearance. There is some periureteral inflammatory stranding. There is some questionable bladder wall thickening anteriorly. While this could be owing to cystitis, other etiologies cannot be entirely excluded and correlation with cystoscopy would be useful. No other significant abnormality is identified. Dictated by: Dictated on workstation # [id number]
[2020-02-05] MEDS ORDERED: ONDA4TAB11 PO (14:00)
[2020-02-05 14:07] VITALS: BP 99/60
== END 2020-02-05 14:10 | disposition home or self-care (01) ==
LOC: EDUNIT# 10:44 → ER 10:45
DX: R31.9 Hematuria, unspecified (principal); N32.89 Other specified disorders of bladder; J44.9 Chronic obstructive pulmonary disease, unspecified; I10 Essential (primary) hypertension; E03.9 Hypothyroidism, unspecified; Z79.82 Long term (current) use of aspirin; Z79.84 Long term (current) use of oral hypoglycemic drugs; Z79.52 Long term (current) use of systemic steroids; Z79.890 Hormone replacement therapy
CPT/HCPCS: 36415; 74176; 80053; 81000; 85025; 86141; 87088

== ENCOUNTER 2020-09-08 11:59 | Emergency (ER) | payer MEDICARE, MEDICAID ==
[~2020-09-08] VITALS: Ht 149 cm; Wt 78.0 kg
[~2020-09-08 11:59] MED LIST changes: +ASPI-1238 PO; -ASPI-983 PO; +ONDA4TAB11 PO
[2020-09-08] MEDS ORDERED: ACETAMINOPHEN 325 MG TABLET PO ONE (12:30)
--- NOTE | 2020-09-08 12:41 | ED Cough/URI ---
General Chief Complaint: Cough/Cold/Flu Symptoms Stated Complaint: O2 HAS DROPPED, COUGHING Nursing Triage Note: Pt to ED in wheelchair. Pt reports testing positive for COVID. The only complaint pt has is non-productive cough. Sepsis Screen: No Definite Risk Source: patient History of Present Illness Date Seen by Provider: Sep 08, 2020 Time Seen by Provider: 12:28 Initial Comments This is a 69-year-old female who presents to the ER with complaints of cough and COVID. Reports chronic generalized pain, no new pain. She has no complaints at this time other than a non-productive cough. Daughter states her symptoms began on SundaySeptember 04, and she tested positive for COVID on SundaySeptember 06. Her chief complaint is cough and oxygen saturations fluctuations on her home SpO2 probe. Daughter states the lowest it reached was 90%. No fevers, chest pain, shortness of breath, vomiting, or abdominal pain. Allergies and Home Medications Allergies Coded Allergies: No Known Drug Allergies (Unverified , 05/25/19) Home Medications Albuterol Sulfate 1 Puff Puff, 2 PUFF INH Q4H PRN for SHORTNESS OF BREATH, (Reported) 1 PUFF = 90 MCG Albuterol Sulfate 1 Puff Puff, 2 PUFF INH Q4H 1 PUFF = 90 MCG Prescribed by: LUIS KENYON on 09/08/20 1338 Amitriptyline HCl 25 Mg Tablet, 25 MG PO HS, (Reported) Aspirin 81 Mg Tablet.dr, 81 MG PO DAILY, (Reported) Aspirin 81 Mg Tab.chew, 81 MG PO DAILY Prescribed by: TRINY LEWIS on 05/28/19 1132 Atorvastatin Calcium 10 Mg Tablet, 10 MG PO HS, (Reported) Budesonide/Formoterol Fumarate 10.2 Gm Hfa.aer.ad, 2 PUFF INH BID, (Reported) Calcium Carb/Magnesium Hydrox 1 Each Tab.chew, 1 TAB.CHEW PO Q6H PRN for INDIGESTION, (Reported) Diclofenac Sodium 50 Mg Tablet.dr, 50 MG PO BID, (Reported) Furosemide 20 Mg Tablet, 20 MG PO DAILY, (Reported) Hydrocodone Bit/Acetaminophen 1 Each Tablet, 1 TAB PO Q8H PRN for PAIN-MODERATE, (Reported) Levothyroxine Sodium 125 Mcg Tablet, 125 MCG PO DAILY Prescribed by: RAJESH GABRIEL on 05/28/19 1158 Lisinopril 10 Mg Tablet, 10 MG PO DAILY, (Reported) Metformin HCl 500 Mg Tablet, 500 MG PO TID, (Reported) Metoprolol Succinate 25 Mg Tab.er.24h, 25 MG PO DAILY Prescribed by: TRINY LEWIS on 05/28/19 1132 Miconazole Nitrate 142 Gm Cream..g., TP BID, (Reported) Omeprazole 20 Mg Capsule.dr, 20 MG PO DAILY, (Reported) Ondansetron 4 Mg Tab.rapdis, 4 MG PO Q6H PRN for NAUSEA/VOMITING Prescribed by: SHANICE CHRISTIAN on 02/05/20 1400 Potassium Chloride 10 Meq Tab.er.prt, 10 MEQ PO DAILY, (Reported) Prednisone 20 Mg Tab, 40 MG PO DAILY@0700 Prescribed by: RAJESH GABRIEL on 05/27/19 1130 Ropinirole HCl 1 Mg Tablet, 1 MG PO DAILY, (Reported) Tizanidine HCl 2 Mg Tablet, 2 MG PO Q8H PRN for MUSCLE SPASMS, (Reported) Venlafaxine HCl 150 Mg Cap.er.24h, 150 MG PO BID, (Reported) Patient Home Medication List Home Medication List Reviewed: Yes Review of Systems Review of Systems Constitutional: no symptoms reported EENTM: no symptoms reported Respiratory: see HPI Cardiovascular: no symptoms reported Gastrointestinal: no symptoms reported Genitourinary: no symptoms reported Musculoskeletal: no symptoms reported Skin: no symptoms reported Psychiatric/Neurological: No Symptoms Reported Hematologic/Lymphatic: No Symptoms Reported Immunological/Allergic: no symptoms reported Past [id number]-[id number] Hx Patient Social History Alcohol Use: Denies Use Smoking Status: Former Smoker Type Used: Cigarettes Former Smoker, Quit: Aug 27, 1997 2nd Hand Smoke Exposure: No Recent Infectious Disease Expo: Yes (COVID+) Recent Hopitalizations: No Seasonal Allergies Seasonal Allergies: No Past Medical History Appendectomy Respiratory: Yes COPD Currently Using CPAP: No Currently Using BIPAP: No Cardiac: Yes Hypertension Neurological: No Genitourinary: Yes Kidney Infection Gastrointestinal: Yes (constipation) Endocrine: Yes Hypothyroidsim HEENT: No Cancer: No Psychosocial: No Integumentary: No Blood Disorders: No Physical Exam Vital Signs - First Documented 09/08/20 12:18 Pulse 70 Resp 20 B/P (MAP) 113/102 (106) Pulse Ox 98 O2 Delivery Room Air Capillary Refill : Less Than 3 Seconds Height: '" Weight: lbs. oz. kg; 35.00 BMI Method: General Appearance: WD/WN, no apparent distress Eyes: Bilateral Eye Normal Inspection, Bilateral Eye PERRL, Bilateral Eye EOMI HEENT: PERRL/EOMI, normal ENT inspection, pharynx normal Neck: full range of motion, normal inspection Respiratory: lungs clear, normal breath sounds Cardiovascular: regular rate, rhythm, no edema, no murmur Gastrointestinal: normal bowel sounds, non tender, soft Extremities: non-tender Neurologic/Psychiatric: no motor/sensory deficits, alert, normal mood/affect, oriented x 3, other (Chronic tremors ) Skin: normal color, warm/dry Focused Exam Lactate Level 09/08/20 12:50: Lactic Acid Level 0.95 Lactic Acid Level Laboratory Tests Test 09/08/20 12:50 Lactic Acid Level 0.95 MMOL/L (0.50-2.00) Progress/Results/Core Measures Suspected Sepsis Recent Fever Within 48 Hours: No Infection Criteria Present: None New/Unexplained Altered Menta: No Sepsis Screen: No Definite Risk SIRS Temperature: Pulse: 70 Respiratory Rate: 20 Laboratory Tests 09/08/20 12:20: White Blood Count 5.2 Blood Pressure 113 /102 Mean: 106 09/08/20 12:50: Lactic Acid Level 0.95 Laboratory Tests 09/08/20 12:20: Creatinine 1.12, INR Comment 1.0, Platelet Count 185, Total Bilirubin 0.3 Results/Orders Lab Results Laboratory Tests Test 09/08/20 12:20 09/08/20 12:50 Range/Units White Blood Count 5.2 4.3-11.0 10^3/uL Red Blood Count 3.84 3.80-5.11 10^6/uL Hemoglobin 11.5 11.5-16.0 g/dL Hematocrit 37 35-52 % Mean Corpuscular Volume 95 80-99 fL Mean Corpuscular Hemoglobin 30 25-34 pg Mean Corpuscular Hemoglobin Concent 31 L 32-36 g/dL Red Cell Distribution Width 13.8 10.0-14.5 % Platelet Count 185 130-400 10^3/uL Mean Platelet Volume 9.1 9.0-12.2 fL Immature Granulocyte % (Auto) 0 % Neutrophils (%) (Auto) 53 42-75 % Lymphocytes (%) (Auto) 37 12-44 % Monocytes (%) (Auto) 8 0-12 % Eosinophils (%) (Auto) 1 0-10 % Basophils (%) (Auto) 0 0-10 % Neutrophils # (Auto) 2.7 1.8-7.8 10^3/uL Lymphocytes # (Auto) 1.9 1.0-4.0 10^3/uL Monocytes # (Auto) 0.4 0.0-1.0 10^3/uL Eosinophils # (Auto) 0.1 0.0-0.3 10^3/uL Basophils # (Auto) 0.0 0.0-0.1 10^3/uL Immature Granulocyte # (Auto) 0.0 0.0-0.1 10^3/uL Prothrombin Time 13.5 12.2-14.7 SEC INR Comment 1.0 0.8-1.4 Activated Partial Thromboplast Time 44 H 24-35 SEC D-Dimer 0.74 H 0.00-0.49 UG/ML Urine Color YELLOW Urine Clarity CLEAR Urine pH 6.0 5-9 Urine Specific [place] <=1.005 1.016-1.022 Urine Protein NEGATIVE NEGATIVE Urine Glucose (UA) NEGATIVE NEGATIVE Urine Ketones NEGATIVE NEGATIVE Urine Nitrite NEGATIVE NEGATIVE Urine Bilirubin NEGATIVE NEGATIVE Urine Urobilinogen 0.2 < = 1.0 MG/DL Urine Leukocyte Esterase NEGATIVE NEGATIVE Urine RBC (Auto) TRACE-I NEGATIVE Urine RBC 2-5 H /HPF Urine WBC 0-2 /HPF Urine Squamous Epithelial Cells 5-10 /HPF Urine Crystals NONE /LPF Urine Bacteria NEGATIVE /HPF Urine Casts NONE /LPF Urine Mucus NEGATIVE /LPF Urine Culture Indicated CULTURE PENDING Sodium Level 138 135-145 MMOL/L Potassium Level 4.2 3.6-5.0 MMOL/L Chloride Level 101 98-107 MMOL/L Carbon Dioxide Level 28 21-32 MMOL/L Anion Gap 9 5-14 MMOL/L Blood Urea Nitrogen 14 7-18 MG/DL Creatinine 1.12 0.60-1.30 MG/DL Estimat Glomerular Filtration Rate 48 BUN/Creatinine Ratio 13 Glucose Level 93 70-105 MG/DL Calcium Level 8.4 L 8.5-10.1 MG/DL Corrected Calcium 8.8 8.5-10.1 MG/DL Total Bilirubin 0.3 0.1-1.0 MG/DL Aspartate Amino Transf (AST/SGOT) 26 5-34 U/L Alanine Aminotransferase (ALT/SGPT) 16 0-55 U/L Alkaline Phosphatase 70 40-136 U/L Lactate Dehydrogenase 213 125-220 U/L Troponin I < 0.028 <0.028 NG/ML C-Reactive Protein High Sensitivity 1.05 H 0.00-0.50 MG/DL Total Protein 7.0 6.4-8.2 GM/DL Albumin 3.5 3.2-4.5 GM/DL Lactic Acid Level 0.95 0.50-2.00 MMOL/L My Orders Orders - LUIS KENYON APRN Monitor-Rhythm Ecg Trace Only (09/08/20 12:26) Ed Iv/Invasive Line Start (09/08/20 12:26) Cbc With Automated Diff (09/08/20 12:26) Comprehensive Metabolic Panel (09/08/20 12:26) LDH (09/08/20 12:26) Hs C Reactive Protein (09/08/20 12:26) Troponin I (09/08/20 12:26) Lactic Acid Analyzer (09/08/20 12:26) Protime With Inr (09/08/20 12:) Partial Thromboplastin Time (09/08/20 12:26) Fibrin Degradation Products (09/08/20 12:26) Ekg Tracing (09/08/20 12:26) Chest 1 View, Ap/Pa Only (09/08/20 12:26) Arterial Blood Gas (09/08/20 12:26) Acetaminophen Tablet/Caplet (Tylenol T (09/08/20 12:30) Blood Culture (09/08/20 12:26) Urinalysis (09/08/20 12:26) Urine Culture (09/08/20 12:26) O2 (09/08/20 12:26) Medications Given in ED Current Medications Medications Dose Ordered Sig/Brittney Route Start Time Stop Time Status Last Admin Dose Admin Acetaminophen 650 mg ONCE ONCE PO 09/08/20 12:30 09/08/20 12:31 DC 09/08/20 12:46 650 MG Vital Signs/I&O 09/08/20 09/08/20 12:18 12:41 Pulse 70 Resp 20 B/P (MAP) 113/102 (106) Pulse Ox 98 O2 Delivery Room Air Room Air Capillary Refill : Less Than 3 Seconds Blood Pressure Mean: 106 Progress Note : Progress Note She was examined and in no acute distress. Oxygen saturation 96-98% on room air, no evidence of respiratory distress. States she does not know why she is here. Labs and CXR ordered. She is resting comfortably. Her labs and chest x-ray reviewed. Minimal elevation of D-dimer-0.74 and CRP- 1.05. Remaining labs unremarkable. CXR is unremarkable. Reviewed findings with Daughter Lynda. Called daughter Lynda, who states she is the patients DPOA. Discussed outpatient treatment options with her which included use of Z-pack, Medrol dosepack, and ASA. Also, discussed outpatient Bamlanivimab treatment, and reviewed risk versus benefits as well as the Fact sheet for patients. Sarai- daughter she is agreeable with the Bamlanivimab treatment and would like to see about setting this up for her mother. Discharge plan reviewed and they are agreeable with plan. Diagnostic Imaging Diagonstic Imaging: Xray Plain Films/CT/US/NM/MRI: chest Comments NAME: CURTISBYRONAriel Adler MED REC#: [id number] PT STATUS: REG ER : 1950 PHYSICIAN: LUIS KENYON [employer] ATTENDANT ADMIT DATE: 09/08/20/ER Draft Date of Exam:09/08/20 CHEST 1 VIEW, AP/PA ONLY EXAM: CHEST 1 VIEW, AP/PA ONLY. INDICATION: Shortness of breath. COMPARISON: CTA chest 05/26/2019. FINDINGS: Cardiomegaly. Normal central pulmonary vascularity. Elevation of the right hemidiaphragm with mild atelectasis or infiltrate in the right lung base. No large pleural effusion or pneumothorax. No acute osseous findings. IMPRESSION: 1. Stable elevation of the right hemidiaphragm. Mild atelectasis, less likely infiltrate, in the right lung base. 2. Stable cardiomegaly with normal central pulmonary vascularity. Dictated on workstation # [id number] Dict: 09/08/20 1318 Trans: 09/08/20 1320 [id number] Interpreted by: CARY PORRAS MD Electronically signed by: Departure Impression Primary Impression: COVID-19 Disposition: 01 HOME, SELF-CARE Condition: Stable/Unchanged Departure-Patient Inst. Decision time for Depature: 13:35 Referrals: KOBE REAGAN MD (PCP/Family) Primary Care Physician Patient Instructions: Coronavirus Disease 2019 (COVID-19) ED Add. Discharge Instructions: Plan: 1. Discharge home. You will be notified eligibility and time if eligible regarding the outpatient Bamlanivimab treatment. 2. May take Tylenol or Ibuprofen as needed for pain per package instructions. Continue to isolate at home. 3. Use albuterol inhaler every 4 hours as needed for wheezing or shortness of breath. 4. Return for any new or concerning symptoms. All discharge instructions reviewed with patient and/or family. Voiced understanding. Scripts Albuterol Sulfate (VENTOLIN HFA) 1 Puff Puff 2 PUFF INH Q4H for 30 Days, #1 INHALER 0 Refills 1 PUFF = 90 MCG Prov: [employer]ON [employer] ATTEND[employer] 09/08/20 LUIS KENYON [employer] ATTENDANT Sep 08, 2020 12:41
[2020-09-08 12:47] LABS: BILIRUBIN,URINE NEGATIVE (NEGATIVE); CLARITY,URINE CLEAR; COLOR,URINE YELLOW; GLUCOSE, URINE (UA) NEGATIVE (NEGATIVE); KETONES,URINE NEGATIVE (NEGATIVE); LEUKOCYTE ESTERASE ,URINE NEGATIVE (NEGATIVE); NITRITE,URINE NEGATIVE (NEGATIVE); PROTEIN,URINE NEGATIVE (NEGATIVE)
[2020-09-08 12:49] LABS: BASOPHILS % (AUTO) 0 % (0-10); EOSINOPHILS # (AUTO) 0.1 10^3/uL (0.0-0.3); EOSINOPHILS % (AUTO) 1 % (0-10); HEMATOCRIT 37 % (35-52); HEMOGLOBIN 11.5 g/dL (11.5-16.0); LYMPHOCYTES # (AUTO) 1.9 10^3/uL (1.0-4.0); LYMPHOCYTES % (AUTO) 37 % (12-44); MEAN CORPUSCULAR HEMOGLOBIN 30 pg (25-34); MEAN CORPUSCULAR HGB CONC 31 g/dL (32-36); MEAN CORPUSCULAR VOLUME 95 fL (80-99); MEAN PLATELET VOLUME 9.1 fL (9.0-12.2); MONOCYTES # (AUTO) 0.4 10^3/uL (0.0-1.0); MONOCYTES % (AUTO) 8 % (0-12); NEUTROPHILS # (AUTO) 2.7 10^3/uL (1.8-7.8); NEUTROPHILS % (AUTO) 53 % (42-75); PLATELET COUNT 185 10^3/uL (130-400); WHITE BLOOD COUNT 5.2 10^3/uL (4.3-11.0)
[2020-09-08 12:56] LABS: ALBUMIN 3.5 GM/DL (3.2-4.5); BACTERIA,URINE NEGATIVE /HPF; CHLORIDE 101 MMOL/L (98-107); POTASSIUM 4.2 MMOL/L (3.6-5.0); SODIUM 138 MMOL/L (135-145); WBC,URINE 0-2 /HPF
[2020-09-08 12:57] LABS: CALCIUM 8.4 MG/DL (8.5-10.1)
[2020-09-08 12:58] LABS: GLUCOSE 93 MG/DL (70-105)
[2020-09-08 12:59] LABS: CARBON DIOXIDE 28 MMOL/L (21-32)
[2020-09-08 13:00] LABS: BILIRUBIN,TOTAL 0.3 MG/DL (0.1-1.0)
[2020-09-08 13:01] LABS: FIBRIN DEGRADATION PRODUCTS 0.74 UG/ML (0.00-0.49); PROTHROMBIN TIME PATIENT 13.5 SEC (12.2-14.7)
[2020-09-08 13:02] LABS: ALKALINE PHOSPHATASE 70 U/L (40-136); CREATININE SERUM 1.12 MG/DL (0.60-1.30); GFR ESTIMATED 48
[2020-09-08 13:03] LABS: BUN/CREATININE RATIO 13
[2020-09-08 13:05] LABS: ALANINE AMINOTRANSFERASE 16 U/L (0-55)
--- NOTE | 2020-09-08 13:21 | Diagnostic Imaging Report ---
EXAM: CHEST 1 VIEW, AP/PA ONLY. INDICATION: Shortness of breath. COMPARISON: CTA chest 05/26/2019. FINDINGS: Cardiomegaly. Normal central pulmonary vascularity. Elevation of the right hemidiaphragm with mild atelectasis or infiltrate in the right lung base. No large pleural effusion or pneumothorax. No acute osseous findings. IMPRESSION: 1. Stable elevation of the right hemidiaphragm. Mild atelectasis, less likely infiltrate, in the right lung base. 2. Stable cardiomegaly with normal central pulmonary vascularity. Dictated by: Dictated on workstation # [id number]
[2020-09-08] MEDS ORDERED: RT-ALBUINH INH (13:38)
--- NOTE | 2020-09-08 13:47 | NUR ---
Spoke with pt's daughter regarding discharge and picking supervisor in the ambulance bay. Daughter to call upon arrival to ED.
[2020-09-08 14:20] VITALS: BP 102/61
--- NOTE | 2020-09-08 14:29 | NUR ---
Orders for Idaimab faxed to [phone].
== END 2020-09-08 14:14 | disposition home or self-care (01) ==
LOC: EDUNIT# 11:59 → ER 12:01
DX: U07.1 COVID-19 (principal); E03.9 Hypothyroidism, unspecified; I10 Essential (primary) hypertension; J44.9 Chronic obstructive pulmonary disease, unspecified; Z79.890 Hormone replacement therapy; Z87.891 Personal history of nicotine dependence; Z79.52 Long term (current) use of systemic steroids; Z79.82 Long term (current) use of aspirin
CPT/HCPCS: 36415; 71045; 80053; 81000; 83605; 83615; 84484; 85025; 85379; 85610; 85730; 86141; 87040; 87088; 93005; 93041

== ENCOUNTER → 2020-09-10 | Outpatient (CLI) | payer MEDICARE, MEDICAID ==
[~2020-09-10] MED LIST changes: +ASCO500C17 PO; +BAMLANIVIMAB 700 MG in NS 200 ML IV ONE; +BENZ1TAB6 PO; +BETH50TA2 PO; +CALC-250 PO; +DOCU-143 PO; +EPINEPHrine INJECTION 1 MG/ML AMP IM PRN; +FLUO20CA42 PO; +FLUT1DIS28 IH; +LEVO75CA5 PO; +LIDO700A45 TP; -LISI10TA2 PO; +LISI10TA25 PO; +TIZA-169 PO; -TIZA2TAB7 PO; +ZINC50TA51 PO; +diphenhydrAMINE 50 MG/ML INJ (BENADRYL) IV PRN
[2020-09-10 08:30] VITALS: BP 120/59
[2020-09-10 10:29] VITALS: BP 115/87
== END ==
LOC: INFUSION 08:11
PROVIDERS: ATTEND Nurse Practitioner Family
DX: Z23 Encounter for immunization (principal); U07.1 COVID-19

== ENCOUNTER 2020-09-11 00:40 | Inpatient (IN) | payer MEDICARE, MEDICAID ==
[~2020-09-11] VITALS: Ht 150 cm; Wt 76.6 kg
[~2020-09-11 00:40] MED LIST changes: -ASCO500C17 PO; -BAMLANIVIMAB 700 MG in NS 200 ML IV ONE; -BENZ1TAB6 PO; -BETH50TA2 PO; -CALC-250 PO; -DOCU-143 PO; -EPINEPHrine INJECTION 1 MG/ML AMP IM PRN; -FLUO20CA42 PO; -FLUT1DIS28 IH; -LEVO75CA5 PO; -LIDO700A45 TP; +LISI10TA2 PO; -LISI10TA25 PO; -TIZA-169 PO; +TIZA2TAB7 PO; -ZINC50TA51 PO; -diphenhydrAMINE 50 MG/ML INJ (BENADRYL) IV PRN
[2020-09-11] MEDS ORDERED: IBUPROFEN 800 MG (MOTRIN) TAB PO ONE (01:00)
--- NOTE | 2020-09-11 01:06 | ED General ---
General Chief Complaint: Cough/Cold/Flu Symptoms Stated Complaint: COVID+ Nursing Triage Note: TO ED ROOM 8 [facility] WITH COVID 19 +. SYMPTOMS BEGAN 09/04 AND TESTED POSITIVE 09/06. RECEIVED BAM [place]. PT STATES HER DAUGHTER CALLED FOR EMS. Nursing Sepsis Screen: No Definite Risk Source of Information: Patient, EMS, Old Records History of Present Illness Date Seen by Provider: Sep 11, 2020 Time Seen by Provider: 00:43 Initial Comments PT ARRIVES VIA EMS FROM HOME LIVES BY HERSELF, BUT DAUGHTER STAYS WITH HER AT NIGHT PT BEGAN HAVING COVID-19 SYMPTOMS 1 WEEK AGO, SEPTEMBER 04--COUGH AND FEVER TESTE + FOR COVID-19 ON SundaySEPTEMBER 06 SEEN IN THIS ER 09/08/20--ONLY COMPLAINT WAS COUGH. O2 SATS 96-98% ON ROOM AIR. PT WAS GIVEN RX FOR ALBUTEROL INHALER. PT STATES SHE HAS COPD, AND USED INHALER X 1 IN THE MORNING PT HAD MONOCLONAL ANTIBODY INFUSION ( BAMLANIVIMAB) TODAY/YESTERDAY 09/10/20 AT 0830 DAUGHTER CALLED EMS TONIGHT BECAUSE PT HAD FEVER OF "103"--TEMP WAS 100.6 BY EMS ON ARRIVAL PT HAD A DOSE OF TYLENOL AT MIDNIGHT. DAUGHTER ALSO REPORTED TO ERM THAT PT'S O2 SATS WERE 88-89% --O2 STS 97% ON ROOM AIR FOR EMS PT STATES SHE HAS COPD, BUT DOES NOT HAVE ANY HOME O2. PT STATES SHE QUIT SMOKING YEARS AGO. PT ONLY STATES SHE HAS A LITTLE COUGH DENIES SHORTNESS OF BREATH DENIES PAIN ANYWHERE--NO BODY ACHES, NO HEADACHE, NO CHEST PAIN, NO SORE THROAT DENIES NAUSEA/VOMITING/DIARRHEA, STATES SHE HAS BEEN DRINKING LIQUIDS PT HAS NO OTHER COMPLAINTS OF ANY KIND PCP: DR. DIAZ Allergies and Home Medications Allergies Coded Allergies: No Known Drug Allergies (Unverified , 05/25/19) Home Medications Albuterol Sulfate 1 Puff Puff, 2 PUFF INH Q4H PRN for SHORTNESS OF BREATH, (Reported) 1 PUFF = 90 MCG Aspirin 81 Mg Tablet.dr, 81 MG PO DAILY, (Reported) Atorvastatin Calcium 10 Mg Tablet, 10 MG PO HS, (Reported) Bethanechol Chloride 50 Mg Tablet, 50 MG PO DAILY, (Reported) Docusate Sodium 100 Mg Capsule, 100 MG PO BID, (Reported) Fluoxetine HCl 20 Mg Capsule, 20 MG PO DAILY, (Reported) Fluticasone/Salmeterol 1 Each Blst.w.dev, 1 EACH IH BID, (Reported) Furosemide 20 Mg Tablet, 20 MG PO DAILY, (Reported) Levothyroxine Sodium 75 Mcg Capsule, 75 MCG PO DAILY, (Reported) Lidocaine 1 Each Adh..patch, 1 EACH TP Q12H PRN for Neuropathic pain, (Reported) 2 patches max for 12 hours, then 12 hours patch-free period. Lisinopril 10 Mg Tablet, 10 MG PO DAILY, (Reported) Metformin HCl 500 Mg Tablet, 250 MG PO DAILY, (Reported) Omeprazole 20 Mg Capsule.dr, 20 MG PO DAILY, (Reported) Patient Home Medication List Home Medication List Reviewed: Yes Review of Systems Review of Systems Constitutional: see HPI, fever EENTM: no symptoms reported Respiratory: see HPI, cough Cardiovascular: no symptoms reported; No chest pain Gastrointestinal: no symptoms reported; No abdominal pain, No diarrhea, No nausea, No vomiting Genitourinary: no symptoms reported Musculoskeletal: no symptoms reported Skin: no symptoms reported Psychiatric/Neurological: No Symptoms Reported Hematologic/Lymphatic: No Symptoms Reported Immunological/Allergic: no symptoms reported Past Wlttmzw-Fqnoco-Tdrmxz Hx Past Med/Social Hx: Reviewed and Corrections made Patient Social History Alcohol Use: Denies Use Smoking Status: Former Smoker Type Used: Cigarettes Former Smoker, Quit: Aug 27, 1997 2nd Hand Smoke Exposure: No Recent Infectious Disease Expo: Yes (COVID 19 POSITIVE ) Recent Hopitalizations: No Seasonal Allergies Seasonal Allergies: No Past Medical History Surgeries: Yes Appendectomy Respiratory: Yes COPD Currently Using CPAP: No Currently Using BIPAP: No Cardiac: Yes (LBBB) High Cholesterol, Hypertension Neurological: No Genitourinary: Yes Kidney Infection Gastrointestinal: Yes (constipation) Chronic Constipation Musculoskeletal: Yes Degenerate Disk Disease, Chronic Back Pain Endocrine: Yes Hypothyroidsim, Diabetes, Non-Insulin dep HEENT: No Cancer: No Psychosocial: No Integumentary: No Blood Disorders: No Family Medical History ADDITIONAL PAST MEDICAL HISTORY: -ADMITTED 04/2019 WITH COPD EXACERBATION WITH RESPIRATORY FAILURE--REQUIRED BIPAP. HAD TYPE 2 NSTEMI, CHF - LIKELY DUE TO HYPOXIA. ECHOCARDIOGRAM SHOWED EF 55-65% Physical Exam Vital Signs Vital Signs - First Documented 09/11/20 09/11/20 09/11/20 00:43 03:00 10:22 Temp 37.8 Pulse 84 Resp 18 B/P (MAP) 127/68 (87) Pulse Ox 91 O2 Delivery Room Air O2 Flow Rate 2.00 FiO2 21 Capillary Refill : Less Than 3 Seconds Height, Weight, BMI Height: '" Weight: lbs. oz. kg; 35.00 BMI Method: General Appearance: No Apparent Distress, WD/WN, Other (PT WITH CONSTANT MOVEMENTS OF HEAD/TRUNK, HANDS AND FEET--?DYSTONIC-LIKE MOVEMENTS??) HEENT: PERRL/EOMI, Normal ENT Inspection, Pharynx Normal Neck: Full Range of Motion, Normal Inspection, Non Tender, Supple Respiratory: Normal Breath Sounds, No Accessory Muscle Use, No Respiratory Distress, Other (RARE, SINGLE, NON-PRODUCTIVE COUGH) Cardiovascular: Regular Rate, Rhythm, No Edema, No JVD, No Murmur, Normal Peripheral Pulses Gastrointestinal: Non Tender, Soft Back: No CVA Tenderness Extremity: Normal Capillary Refill, Normal Inspection, Normal Range of Motion, Non Tender, No Calf Tenderness, No Pedal Edema Neurologic/Psychiatric: Alert, Oriented x3, No Motor/Sensory Deficits, Normal 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/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, 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 Norm as Tested Skin: Normal Color, Warm/Dry Focused Exam Lactate Level 09/11/20 00:50: Lactic Acid Level 1.44 Lactic Acid Level Progress/Results/Core Measures Suspected Sepsis Recent Fever Within 48 Hours: Yes Infection Criteria Present: Documented Infection New/Unexplained Altered Menta: No Sepsis Screen: No Definite Risk SIRS Temperature: Pulse: 84 Respiratory Rate: 18 Laboratory Tests 09/11/20 00:50: White Blood Count 6.5 09/11/20 05:08: White Blood Count 5.9 Blood Pressure 127 /68 Mean: 87 09/11/20 00:50: Lactic Acid Level 1.44 Laboratory Tests 09/11/20 00:50: Creatinine 1.22, INR Comment 1.0, Platelet Count 152, Total Bilirubin 0.2 09/11/20 05:08: Creatinine 1.10, Platelet Count 150, Total Bilirubin 0.1 Results/Orders Lab Results Laboratory Tests Test 09/11/20 00:50 09/11/20 01:25 09/11/20 05:06 09/11/20 05:08 Range/Units White Blood Count 6.5 5.9 4.3-11.0 10^3/uL Red Blood Count 3.33 L 3.55 L 3.80-5.11 10^6/uL Hemoglobin 9.8 L 10.3 L 11.5-16.0 g/dL Hematocrit 31 L 33 L 35-52 % Mean Corpuscular Volume 93 93 80-99 fL Mean Corpuscular Hemoglobin 29 29 25-34 pg Mean Corpuscular Hemoglobin Concent 32 31 L 32-36 g/dL Red Cell Distribution Width 13.8 13.8 10.0-14.5 % Platelet Count 152 150 130-400 10^3/uL Mean Platelet Volume 9.9 9.8 9.0-12.2 fL Immature Granulocyte % (Auto) 0 0 % Neutrophils (%) (Auto) 67 88 H 42-75 % Lymphocytes (%) (Auto) 22 9 L 12-44 % Monocytes (%) (Auto) 10 3 0-12 % Eosinophils (%) (Auto) 1 0 0-10 % Basophils (%) (Auto) 0 0 0-10 % Neutrophils # (Auto) 4.4 5.2 1.8-7.8 10^3/uL Lymphocytes # (Auto) 1.4 0.5 L 1.0-4.0 10^3/uL Monocytes # (Auto) 0.6 0.2 0.0-1.0 10^3/uL Eosinophils # (Auto) 0.1 0.0 0.0-0.3 10^3/uL Basophils # (Auto) 0.0 0.0 0.0-0.1 10^3/uL Immature Granulocyte # (Auto) 0.0 0.0 0.0-0.1 10^3/uL Erythrocyte Sedimentation Rate 61 H 0-30 MM/HR Prothrombin Time 13.9 12.2-14.7 SEC INR Comment 1.0 0.8-1.4 Activated Partial Thromboplast Time 43 H 24-35 SEC D-Dimer 2.18 H 0.00-0.49 UG/ML Sodium Level 136 137 135-145 MMOL/L Potassium Level 4.1 4.4 3.6-5.0 MMOL/L Chloride Level 103 105 98-107 MMOL/L Carbon Dioxide Level 23 23 21-32 MMOL/L Anion Gap 10 9 5-14 MMOL/L Blood Urea Nitrogen 11 11 7-18 MG/DL Creatinine 1.22 1.10 0.60-1.30 MG/DL Estimat Glomerular Filtration Rate 44 49 BUN/Creatinine Ratio 9 10 Glucose Level 107 H 139 H 70-105 MG/DL Lactic Acid Level 1.44 0.50-2.00 MMOL/L Calcium Level 7.7 L 7.8 L 8.5-10.1 MG/DL Corrected Calcium 8.3 L 8.4 L 8.5-10.1 MG/DL Total Bilirubin 0.2 0.1 0.1-1.0 MG/DL Aspartate Amino Transf (AST/SGOT) 25 28 5-34 U/L Alanine Aminotransferase (ALT/SGPT) 11 12 0-55 U/L Alkaline Phosphatase 69 70 40-136 U/L Lactate Dehydrogenase 223 H 125-220 U/L C-Reactive Protein High Sensitivity 2.91 H 0.00-0.50 MG/DL Total Protein 6.3 L 6.4 6.4-8.2 GM/DL Albumin 3.2 3.2 3.2-4.5 GM/DL Procalcitonin 0.06 <0.10 NG/ML Urine Color YELLOW Urine Clarity SL CLOUDY Urine pH 6.0 5-9 Urine Specific Ranger 1.010 L 1.016-1.022 Urine Protein NEGATIVE NEGATIVE Urine Glucose (UA) NEGATIVE NEGATIVE Urine Ketones NEGATIVE NEGATIVE Urine Nitrite NEGATIVE NEGATIVE Urine Bilirubin NEGATIVE NEGATIVE Urine Urobilinogen 0.2 < = 1.0 MG/DL Urine Leukocyte Esterase NEGATIVE NEGATIVE Urine RBC (Auto) NEGATIVE NEGATIVE Urine RBC RARE /HPF Urine WBC 5-10 H /HPF Urine Squamous Epithelial Cells NONE /HPF Urine Renal Epithelial Cells 0-2 /HPF Urine Crystals PRESENT H /LPF Urine Calcium Oxalate Crystals RARE H /LPF Urine Bacteria TRACE /HPF Urine Casts NONE /LPF Urine Mucus NEGATIVE /LPF Urine Culture Indicated YES Glucometer 130 H 70-110 MG/DL Neutrophils % (Manual) 85 % Lymphocytes % (Manual) 10 % Monocytes % (Manual) 5 % Anisocytosis SLIGHT Test 09/11/20 11:08 09/11/20 16:42 Range/Units Glucometer 163 H 124 H 70-110 MG/DL Micro Results Microbiology 09/11/20 Influenza Types A,B Antigen (SARAH) - Final, Complete My Orders Orders - DOUG MONTESINOS DO Ed Iv/Invasive Line Start (09/11/20 00:42) Monitor-Rhythm Ecg Trace Only (09/11/20 00:42) Cbc With Automated Diff (09/11/20 00:42) Comprehensive Metabolic Panel (09/11/20 00:42) Hs C Reactive Protein (09/11/20 00:42) Lactic Acid Analyzer (09/11/20 00:42) Protime With Inr (09/11/20 00:42) Partial Thromboplastin Time (09/11/20 00:42) Blood Culture (09/11/20 00:42) Influenza A And B Antigens (09/11/20 00:42) Erythrocyte Sedimentation Rate (09/11/20 00:42) Chest 1 View, Ap/Pa Only (09/11/20 00:42) Procalcitonin (Pct) (09/11/20 00:42) LDH (09/11/20 00:42) Ibuprofen Tablet (Motrin Tablet) (09/11/20 01:00) Dexamethasone Injection (Decadron Inje (09/11/20 01:00) Straight Cath For Spec.-Adult (09/11/20 01:19) Ua Culture If Indicated (09/11/20 01:22) Ceftriaxone For Iv Use (Rocephin For I (09/11/20 01:30) Azithromycin Injection (Zithromax Inject (09/11/20 01:30) Fibrin Degradation Products (09/11/20 01:44) Urine Culture (09/11/20 01:25) Ct Angio Chest W (09/11/20 02:29) Iohexol Injection (Omnipaque 350 Mg/Ml 1 (09/11/20 03:00) Received Contrast (Hold Metformin- Contr (09/11/20 03:00) Sodium Chloride Flush (Catheter Flush Sy (09/11/20 03:00) Ns (Ivpb) (Sodium Chloride 0.9% Ivpb Bag (09/11/20 03:00) Enoxaparin Injection (Lovenox Injection) (09/11/20 03:30) Medications Given in ED Vital Signs/I&O 09/11/20 09/11/20 09/11/20 09/11/20 07:00 07:17 08:00 10:22 Temp 36.8 37.8 Pulse 61 60 84 B/P (MAP) 121/77 (92) Pulse Ox 97 95 O2 Delivery Nasal Cannula Nasal Cannula O2 Flow Rate 2.00 2.00 FiO2 21 09/11/20 09/11/20 09/11/20 09/11/20 11:05 13:00 15:41 16:38 Temp 36.2 36.7 Pulse 65 61 65 Resp 18 20 B/P (MAP) 121/61 (81) Pulse Ox 99 95 92 O2 Delivery Nasal Cannula Nasal Cannula Nasal Cannula O2 Flow Rate 2.00 2.00 2.00 Capillary Refill : Less Than 3 Seconds Blood Pressure Mean: 87 Progress Note : Progress Note PLACED IN ISOLATION ROOM PPE WORN AT ALL TIMES O2 SATS 95-96% ON ROOM AIR ON ARRIVAL, WITH REGULAR SURGICAL MASK ON. TEMP IS 100.1 ON ARRIVAL HERE--GIVEN IBUPROFEN OTHER VITALS STABLE--BP 120'S/80'S, HR IN 80'S O2 SATS REMAINED 95-96% ON ROOM AIR, DOES DROP TO 88-89% ON ROOM AIR WHEN SHE FALLS ASLEEP, BUT QUICKLY UP TO MID 90'S SOON SHE WAKES. PLACED ON O2 AT 2L/NC AND O2 SATS REMAINED IN MID 90'S PT HAD NO COMPLAINTS OF ANY KIND DURING ER STAY. GIVEN DOSE OF DECADRON. ALSO GAVE ROCEPHIN + ZITHROMAX FOR SUSPECTED PNEUMONIA NOTED ON CXR Diagnostic Imaging Comments CXR--BIBASILAR INFILTRATES/ATELECTASIS, PENDING RADIOLOGIST REVIEW CT ANGIOGRAM OF CHEST--NO P.E., COVID PNEUMONIA/PNEUMONITIS IN UPPER AND LOWER LOBES AND RML. PER [facility] VIA FAX AT 0321 Reviewed: Reviewed by Me Departure Communication (Admissions) 0321--SPOKE WITH DR. COUGHLIN, HOSPITALIST, ACCEPTS PT FOR ADMIT. Impression Primary Impression: Pneumonia due to 2019 novel coronavirus Additional Impressions: UTI (urinary tract infection) History of COPD HYPOXIA Disposition: ADMITTED INPATIENT Condition: Stable Admissions Decision to Admit Reason: Admit from ER (General) Decision to Admit/Date: Sep 11, 2020 Time/Decision to Admit Time: 03:20 Departure-Patient Inst. Referrals: KOBE REAGAN MD (PCP/Family) Primary Care Physician DOUG MONTESINOS DO Sep 11, 2020 01:06
[2020-09-11 01:20] LABS: BASOPHILS % (AUTO) 0 % (0-10); EOSINOPHILS # (AUTO) 0.1 10^3/uL (0.0-0.3); EOSINOPHILS % (AUTO) 1 % (0-10); HEMATOCRIT 31 % (35-52); HEMOGLOBIN 9.8 g/dL (11.5-16.0); LYMPHOCYTES # (AUTO) 1.4 10^3/uL (1.0-4.0); LYMPHOCYTES % (AUTO) 22 % (12-44); MEAN CORPUSCULAR HEMOGLOBIN 29 pg (25-34); MEAN CORPUSCULAR HGB CONC 32 g/dL (32-36); MEAN CORPUSCULAR VOLUME 93 fL (80-99); MEAN PLATELET VOLUME 9.9 fL (9.0-12.2); MONOCYTES # (AUTO) 0.6 10^3/uL (0.0-1.0); MONOCYTES % (AUTO) 10 % (0-12); NEUTROPHILS # (AUTO) 4.4 10^3/uL (1.8-7.8); NEUTROPHILS % (AUTO) 67 % (42-75); PLATELET COUNT 152 10^3/uL (130-400); WHITE BLOOD COUNT 6.5 10^3/uL (4.3-11.0)
[2020-09-11] MEDS ORDERED: AZITHROMYCIN INJECTION 500 MG in NS (IVPB) 250 ML IV ONE (01:30)
[2020-09-11] MEDS ORDERED: cefTRIAXone FOR IV USE 1,000 MG in WATER (STERILE) FOR INJECTION 10 ML IV ONE (01:30)
[2020-09-11 01:35] LABS: ALBUMIN 3.2 GM/DL (3.2-4.5); POTASSIUM 4.1 MMOL/L (3.6-5.0)
[2020-09-11 01:36] LABS: CALCIUM 7.7 MG/DL (8.5-10.1)
[2020-09-11 01:36] LABS: BILIRUBIN,URINE NEGATIVE (NEGATIVE); CLARITY,URINE SL CLOUDY; COLOR,URINE YELLOW; GLUCOSE, URINE (UA) NEGATIVE (NEGATIVE); KETONES,URINE NEGATIVE (NEGATIVE); LEUKOCYTE ESTERASE ,URINE NEGATIVE (NEGATIVE); NITRITE,URINE NEGATIVE (NEGATIVE); PROTEIN,URINE NEGATIVE (NEGATIVE)
[2020-09-11 01:37] LABS: PROTHROMBIN TIME PATIENT 13.9 SEC (12.2-14.7)
[2020-09-11 01:38] LABS: TOTAL PROTEIN 6.3 GM/DL (6.4-8.2)
[2020-09-11 01:39] LABS: BILIRUBIN,TOTAL 0.2 MG/DL (0.1-1.0)
[2020-09-11 01:40] LABS: ERYTHROCYTE SEDIMENTATION RATE 61 MM/HR (0-30)
[2020-09-11 01:41] LABS: CREATININE SERUM 1.22 MG/DL (0.60-1.30)
--- NOTE | 2020-09-11 01:50 | NUR ---
DPOASTEFF, CONTACTED THIS RN REGARDING PT UPDATE. UPDATE GIVEN. STEFF VOICES NO FURTHER QUESTIONS OR CONCERNS AT THIS TIME.
[2020-09-11 01:54] LABS: BACTERIA,URINE TRACE /HPF; CALCIUM OXALATE CRYSTALS,UR RARE /LPF; RBC,URINE RARE /HPF; RENAL EPITHELIAL CELLS,URINE 0-2 /HPF
[2020-09-11] MEDS ORDERED: HOLD METFORMIN - RECEIVED CONTRAST 20 ML VIAL IV SCH (03:00)
[2020-09-11] MEDS ORDERED: IOHEXOL 350 MG/ML 100 ML (OMNIPAQUE 350) VIAL IV ONE (03:00)
[2020-09-11] MEDS ORDERED: CATHETER FLUSH 10 ML SYR IV PRN (03:00)
[2020-09-11] MEDS ORDERED: NS 100 ML (IVPB) BAG IV ONE (03:00)
[2020-09-11] MEDS ORDERED: ENOXAPARIN 40 MG/0.4 ML (LOVENOX) SYR SC ONE (03:30)
[2020-09-11] MEDS ORDERED: IBUPROFEN 800 MG (MOTRIN) TAB PO PRN (04:30)
--- NOTE | 2020-09-11 04:35 | NUR ---
NAT ACEVEDO admitted to room 422-1, with an admitting diagnosis of Covid-19, PNA, Hypoxia, on 09/11/20 from [facility] ED via EMS, accompanied by specimen technician.NAT ACEVEDO introduced to surroundings, call light, bed controls, phone, TV, temperature control, lights, meal times, smoking policy, visitor policy, side rail policy, bathrooms and showers. Patient Rights given to patient in the handbook. NAT ACEVEDO verbalizes understanding that [facility] is not responsible for the loss or damage to any personal effects or valuables that are kept in the patients posession during their hospitalization. NAT ACEVEDO verbalizes understanding of Interdisciplinary Patient Education.
[2020-09-11 04:36] VITALS: BP 137/78
[2020-09-11] MEDS: inSUlin ASPART (NovoLOG) 1 UNIT/0.01 ML (CHARGE PER UNIT) SC SCH ×4 (05:13→20:32)
[2020-09-11 05:32] LABS: BASOPHILS % (AUTO) 0 % (0-10); EOSINOPHILS % (AUTO) 0 % (0-10); HEMATOCRIT 33 % (35-52); HEMOGLOBIN 10.3 g/dL (11.5-16.0); LYMPHOCYTES # (AUTO) 0.5 10^3/uL (1.0-4.0); LYMPHOCYTES % (AUTO) 9 % (12-44); MEAN CORPUSCULAR HEMOGLOBIN 29 pg (25-34); MEAN CORPUSCULAR HGB CONC 31 g/dL (32-36); MEAN CORPUSCULAR VOLUME 93 fL (80-99); MEAN PLATELET VOLUME 9.8 fL (9.0-12.2); MONOCYTES # (AUTO) 0.2 10^3/uL (0.0-1.0); MONOCYTES % (AUTO) 3 % (0-12); NEUTROPHILS # (AUTO) 5.2 10^3/uL (1.8-7.8); NEUTROPHILS % (AUTO) 88 % (42-75); PLATELET COUNT 150 10^3/uL (130-400); WHITE BLOOD COUNT 5.9 10^3/uL (4.3-11.0)
[2020-09-11] MEDS ORDERED: LEVO75CA5 PO (05:40)
[2020-09-11] MEDS ORDERED: DOCU-143 PO (05:40)
[2020-09-11] MEDS ORDERED: METF-397 PO (05:43)
[2020-09-11] MEDS ORDERED: FLUO20CA42 PO (05:43)
[2020-09-11 05:49] LABS: ALBUMIN 3.2 GM/DL (3.2-4.5); POTASSIUM 4.4 MMOL/L (3.6-5.0)
[2020-09-11] MEDS ORDERED: FLUT1DIS28 IH (05:49)
[2020-09-11] MEDS ORDERED: BETH50TA PO (05:49)
[2020-09-11] MEDS ORDERED: LIDO700A45 TP (05:49)
[2020-09-11 05:50] LABS: CALCIUM 7.8 MG/DL (8.5-10.1)
[2020-09-11 05:51] LABS: TOTAL PROTEIN 6.4 GM/DL (6.4-8.2)
[2020-09-11 05:53] LABS: BILIRUBIN,TOTAL 0.1 MG/DL (0.1-1.0)
[2020-09-11 05:55] LABS: CREATININE SERUM 1.1 MG/DL (0.60-1.30)
[2020-09-11 06:15] LABS: LYMPHOCYTES % (MANUAL) 10 %; MONOCYTES % (MANUAL) 5 %; NEUTROPHILS % (MANUAL) 85 %
[2020-09-11 06:16] LABS: ANISOCYTOSIS SLIGHT
--- NOTE | 2020-09-11 06:37 | Diagnostic Imaging Report ---
Indication: Cough and fever with COVID infection AP view of chest is obtained with comparison made to study of 09/08/2020. Heart size and pulmonary vascularity are at the upper limits of normal. There is mild residual perihilar atelectasis and/or pneumonitis which has shown improvement when compared to previous study. No pneumothorax or new infiltrate is seen. IMPRESSION: Mild perihilar atelectasis and/or pneumonitis with mild interval improvement. Report was faxed to [facility]/RN Infection Control by rachel at 6:36am. Dictated by: Dictated on workstation # [id number]
[2020-09-11 07:17] VITALS: BP 121/77
--- NOTE | 2020-09-11 07:59 | Diagnostic Imaging Report ---
PROCEDURE: CT angiography of the chest with contrast. TECHNIQUE: Multiple contiguous axial images were obtained through the chest after uneventful bolus administration of intravenous contrast. 3D reconstructed CTA MIP acquisitions were also performed. Auto Exposure Controls were utilized during the CT exam to meet ALARA standards for radiation dose reduction. INDICATION: COVID positive, fever, cough and congestion. CORRELATION: 05/26/2019 FINDINGS: No large central pulmonary embolus. Peripheral emboli would likely go undetected on this study owing to artifact. Heart size is mildly enlarged but without right ventricular dysfunction. No acute aortic syndrome. No pathologic enlarged mediastinal lymph nodes. There is asymmetrically elevated right diaphragm. Groundglass opacities upper lower lobes as well as middle lobe on the right are present. No melissa lobar consolidation. No significant effusion. No pneumothorax . Overall assessment of the upper abdomen somewhat limited. No definitive acute abnormality. Suspect gallstones. Rather advanced degenerative changes to the thoracic and lumbar spine. There is somewhat diffuse increased density questioned. IMPRESSION: 1. No definitive CTA evidence for pulmonary embolism. Overall assessment however is somewhat limited. 2. A few scattered groundglass opacities are present, while nonspecific can be seen with COVID 19 infection. Initial report was provided by [facility]. Report was faxed to [facility] Infection Control by rachel at 7:58am. Dictated by: Dictated on workstation # [id number]
[2020-09-11] MEDS ORDERED: LIDOCAINE 4% (SALONPAS) PATCH TP PRN (08:00)
[2020-09-11] MEDS: lisINopril 10 MG (PRINIVIL) TABLET PO SCH (08:41)
[2020-09-11] MEDS: BETHANECHOL 25 MG (URECHOLINE) TAB PO SCH (08:41)
[2020-09-11] MEDS: ASPIRIN E.C. 81 MG (ECOTRIN) TAB PO SCH (08:41)
[2020-09-11] MEDS: FUROSEMIDE 20 MG (LASIX) TAB PO SCH (08:41)
[2020-09-11] MEDS: FLUoxetine HCL 20 MG (PROzac) CAP PO SCH (08:41)
[2020-09-11] MEDS: PANTOPRAZOLE 20 MG TABLET (PROTONIX) PO SCH (08:41)
[2020-09-11] MEDS: LEVOTHYROXINE 75 MCG (LEVOTHROID) TABLET PO SCH (08:41)
[2020-09-11 10:22] VITALS: BP 127/68
--- NOTE | 2020-09-11 10:28 | History & Physical-Hospitalist ---
History of Present Illness Date Seen 09/11/20 Attending Physician Alexandro Patel MD PCP González Cowan DO Referring Physician Date of Admission Sep 11, 2020 at 03:20 Home Medications & Allergies Home Medications Reviewed patient Home Medication Reconciliation performed by pharmacy medication reconciliations maintenance technician and/or nursing. Patients Allergies have been reviewed. Allergies Allergies Coded Allergies No Known Drug Allergies (Unverified05/25/19) Past Opiomwt-Cjxnkm-Ttrhgr Hx Past Med/Social Hx: Reviewed and Corrections made Patient Social History Alcohol Use: Denies Use Recreational Drug Use: No Smoking Status: Former Smoker Former Smoker, Quit: Aug 27, 1997 Type Used: Cigarettes 2nd Hand Smoke Exposure: No Recent Foreign Travel: No Contact w/other who traveled: No Recent Hopitalizations: No Recent Infectious Disease Expo: Yes (COVID 19 POSITIVE ) Seasonal Allergies Seasonal Allergies: No Past Medical History Surgeries: Appendectomy Currently Using CPAP: No Currently Using BIPAP: No Cardiac: High Cholesterol, Hypertension Genitourinary: Kidney Infection Gastrointestinal: Chronic Constipation Musculoskeletal: Degenerate Disk Disease, Chronic Back Pain Endocrine: Hypothyroidsim, Diabetes, Non-Insulin dep History of Blood Disorders: No Family History ADDITIONAL PAST MEDICAL HISTORY: -ADMITTED 04/2019 WITH COPD EXACERBATION WITH RESPIRATORY FAILURE--REQUIRED BIPAP. HAD TYPE 2 NSTEMI, CHF - LIKELY DUE TO HYPOXIA. ECHOCARDIOGRAM SHOWED EF 55-65% Physical Exam Physical Exam Vital Signs Vital Signs - First Documented 09/11/20 09/11/20 00:43 03:00 Temp 37.8 Pulse 84 Resp 18 B/P (MAP) 127/68 (87) Pulse Ox 91 O2 Delivery Room Air O2 Flow Rate 2.00 Capillary Refill : Less Than 3 Seconds Height, Weight, BMI Height: '" Weight: lbs. oz. kg; 34.04 BMI Method: Results Results/Procedures Labs Laboratory Tests 09/11/20 00:50 09/11/20 05:08 Patient resulted labs reviewed. ALEXANDRO PATEL MD Sep 11, 2020 10:28
[2020-09-11] MEDS ORDERED: REMDESIVIR INJ 200 MG in NS (IVPB) 210 ML IV ONE (10:30)
[2020-09-11] MEDS ORDERED: RT-ALBUTEROL INHALER HFA (VENTOLIN HFA) 18 GM IH PRN (10:45)
[2020-09-11] MEDS: RT-ALBUTEROL INHALER HFA (VENTOLIN HFA) 18 GM IH SCH ×2 (15:40→18:57)
[2020-09-11] MEDS: ADVAIR HFA 45/21 MCG INHALER 8 GM IH SCH ×2 (15:40→18:57)
[2020-09-11 16:38] VITALS: BP 121/61
[2020-09-11 20:28] VITALS: BP 105/60
[2020-09-11] MEDS: ACETAMINOPHEN 500 MG TAB (TYLENOL) PO PRN (21:29)
[2020-09-12 01:01] VITALS: BP 109/61
[2020-09-12 01:02] VITALS: BP 109/61
[2020-09-12] MEDS: RT-ALBUTEROL INHALER HFA (VENTOLIN HFA) 18 GM IH SCH ×4 (01:58→18:12)
[2020-09-12 05:38] LABS: HEMOGLOBIN 9.6 g/dL (11.5-16.0); WHITE BLOOD COUNT 5.4 10^3/uL (4.3-11.0)
[2020-09-12 05:51] LABS: POTASSIUM 4.2 MMOL/L (3.6-5.0)
[2020-09-12] MEDS: inSUlin ASPART (NovoLOG) 1 UNIT/0.01 ML (CHARGE PER UNIT) SC SCH ×4 (05:53→21:04)
[2020-09-12 05:55] LABS: BILIRUBIN,TOTAL 0.1 MG/DL (0.1-1.0)
[2020-09-12 05:57] LABS: CREATININE SERUM 1.1 MG/DL (0.60-1.30)
[2020-09-12] MEDS: LEVOTHYROXINE 75 MCG (LEVOTHROID) TABLET PO SCH (06:40)
[2020-09-12] MEDS: ADVAIR HFA 45/21 MCG INHALER 8 GM IH SCH ×2 (06:47→18:12)
[2020-09-12 08:00] VITALS: BP 127/62
[2020-09-12] MEDS: FLUoxetine HCL 20 MG (PROzac) CAP PO SCH (08:38)
[2020-09-12] MEDS: PANTOPRAZOLE 20 MG TABLET (PROTONIX) PO SCH (08:38)
[2020-09-12] MEDS: lisINopril 10 MG (PRINIVIL) TABLET PO SCH (08:38)
[2020-09-12] MEDS: BETHANECHOL 25 MG (URECHOLINE) TAB PO SCH (08:39)
[2020-09-12] MEDS: FUROSEMIDE 20 MG (LASIX) TAB PO SCH (08:39)
[2020-09-12] MEDS: ASPIRIN E.C. 81 MG (ECOTRIN) TAB PO SCH (08:39)
--- NOTE | 2020-09-12 08:39 | Progress Note - Hospitalist ---
Subjective HPI/CC On Admission Date Seen by Provider: Sep 12, 2020 Time Seen by Provider: 08:37 Subjective/Events-last exam Pt reports doing ok today. Nasal cannula in place but oxygen off and satting 96%. No complaints. Focused Exam Lactate Level 09/11/20 00:50: Lactic Acid Level 1.44 Objective Exam Vital Signs Vital Signs Date Time Temp Pulse Resp B/P (MAP) Pulse Ox O2 Delivery O2 Flow Rate FiO2 09/12/20 07:00 60 09/12/20 06:48 Room Air 09/12/20 06:47 98 1.00 09/12/20 01:02 36.2 16 109/61 (77) 09/11/20 10:22 21 Capillary Refill : Less Than 3 Seconds General Appearance: No Apparent Distress, WD/WN Respiratory: No Accessory Muscle Use, No Respiratory Distress, Decreased Breath Sounds Cardiovascular: Regular Rate, Rhythm, No Murmur Gastrointestinal: Normal Bowel Sounds, Non Tender, Soft Extremity: No Calf Tenderness, No Pedal Edema Neurologic/Psychiatric: Alert, Oriented x3, Normal Mood/Affect Results/Procedures Lab Laboratory Tests 09/12/20 05:09 Patient resulted labs reviewed. ALEXANDRO COUGHLIN MD Sep 12, 2020 08:39
[2020-09-12] MEDS: REMDESIVIR INJ 100 MG in NS (IVPB) 230 ML IV SCH (10:36)
[2020-09-12 16:50] VITALS: BP 141/79
[2020-09-12 19:49] VITALS: BP 121/56
[2020-09-12 23:52] VITALS: BP 144/59
[2020-09-13] MEDS: RT-ALBUTEROL INHALER HFA (VENTOLIN HFA) 18 GM IH SCH ×3 (02:20→15:10)
[2020-09-13] MEDS: inSUlin ASPART (NovoLOG) 1 UNIT/0.01 ML (CHARGE PER UNIT) SC SCH ×3 (05:51→16:29)
[2020-09-13] MEDS: LEVOTHYROXINE 75 MCG (LEVOTHROID) TABLET PO SCH (05:51)
[2020-09-13] MEDS: ADVAIR HFA 45/21 MCG INHALER 8 GM IH SCH (06:14)
[2020-09-13 07:02] LABS: CALCIUM 8.1 MG/DL (8.5-10.1)
[2020-09-13 07:05] LABS: BILIRUBIN,TOTAL 0.2 MG/DL (0.1-1.0)
[2020-09-13 07:06] LABS: CREATININE SERUM 1.03 MG/DL (0.60-1.30)
[2020-09-13 08:25] VITALS: BP 113/79
[2020-09-13] MEDS: ASPIRIN E.C. 81 MG (ECOTRIN) TAB PO SCH (09:24)
[2020-09-13] MEDS: PANTOPRAZOLE 20 MG TABLET (PROTONIX) PO SCH (09:24)
[2020-09-13] MEDS: BETHANECHOL 25 MG (URECHOLINE) TAB PO SCH (09:24)
[2020-09-13] MEDS: FUROSEMIDE 20 MG (LASIX) TAB PO SCH (09:24)
[2020-09-13] MEDS: lisINopril 10 MG (PRINIVIL) TABLET PO SCH (09:24)
[2020-09-13] MEDS: FLUoxetine HCL 20 MG (PROzac) CAP PO SCH (09:24)
[2020-09-13] MEDS: ACETAMINOPHEN 500 MG TAB (TYLENOL) PO PRN (09:24)
[2020-09-13] MEDS: REMDESIVIR INJ 100 MG in NS (IVPB) 230 ML IV SCH (09:31)
--- NOTE | 2020-09-13 11:27 | NUR ---
PT DID NOT NEED O2 DURING THIS WALK STUDY. Addendum: 09/13/20 at 1127 by ANTONIA BOLANOS RT Amended: Links added.
--- NOTE | 2020-09-13 11:42 | Discharge Summary ---
Discharge Summary Hospital Course Was the Problem List Reviewed?: Yes Problems/Dx: (1) Pneumonia due to 2019 novel coronavirus Status: Acute Hospital Course Date of Admission: Sep 11, 2020 at 03:20 Admission Diagnosis : pneumonia due to COVID-19 Family Physician/Provider: Andres Diaz DO Date of Discharge: 09/13/20 Discharge Diagnosis: pneumonia due to COVID-19 Hospital Course: Ayesha Skinner is a 69-year-old female who was admitted with pneumonia due to COVID-19. She did require a small amount of supplemental oxygen initially but this resolved prior to discharge. She was treated with Decadron and Remdesivir. She underwent a home oxygen study which revealed no oxygen need. She was discharged home in stable condition. Her daughter stated that she would be able to help take care of her home. We did offer intermediate but she declined at this time. She should follow-up with her primary care physician in a week or two. Labs and Pending Lab Test: Laboratory Tests 09/12/20 11:57: Glucometer 119H 09/12/20 16:55: Glucometer 115H 09/12/20 21:04: Glucometer 122H 09/13/20 05:14: Glucometer 76 09/13/20 05:27: Sodium Level 140, Potassium Level 4.0, Chloride Level 106, Carbon Dioxide Level 26, Anion Gap 8, Blood Urea Nitrogen 24H, Creatinine 1.03, Estimat Glomerular Filtration Rate 53, BUN/Creatinine Ratio 23, Glucose Level 72, Calcium Level 8.1L, Corrected Calcium 8.9, Total Bilirubin 0.2, Aspartate Amino Transf (AST/SGOT) 26, Alanine Aminotransferase (ALT/SGPT) 12, Alkaline Phosphatase 59, Total Protein 6.0L, Albumin 3.0L 09/13/20 11:08: Glucometer 108 Microbiology 09/11/20 Blood Culture - Preliminary, Resulted No growth 09/11/20 Influenza Types A,B Antigen (SARAH) - Final, Complete Home Meds Active Reported Advair 100-50 Diskus (Fluticasone/Salmeterol) 1 Each Blst.w.dev 1 Each IH BID Lidocaine 5% Patch (Lidocaine) 1 Each Adh..patch 1 Each TP Q12H PRN MDD 2 2 patches max for 12 hours, then 12 hours patch-free period. Bethanechol Chloride 50 Mg Tablet 50 Mg PO DAILY Prozac (Fluoxetine HCl) 20 Mg Capsule 20 Mg PO DAILY Metformin HCl 500 Mg Tablet 250 Mg PO DAILY Levothyroxine (Levothyroxine Sodium) 75 Mcg Capsule 75 Mcg PO DAILY Colace (Docusate Sodium) 100 Mg Capsule 100 Mg PO BID Ventolin Hfa (Albuterol Sulfate) 1 Puff Puff 2 Puff INH Q4H PRN 1 PUFF = 90 MCG Omeprazole 20 Mg Capsule.dr 20 Mg PO DAILY Aspirin EC (Aspirin) 81 Mg Tablet.dr 81 Mg PO DAILY Lisinopril 10 Mg Tablet 10 Mg PO DAILY Furosemide 20 Mg Tablet 20 Mg PO DAILY Atorvastatin Calcium 10 Mg Tablet 10 Mg PO HS Assessment/Pt Instructions Take medications as prescribed. Follow-up with your primary care physician in a couple weeks. Return with worsening shortness of breath or if you feel like you're getting worse. Discharge Planning: <30 minutes discharge planning Discharge Instructions Discharge Diet: No Restrictions Activity as Tolerated: Yes Discharge Physical Examination Vital Signs Vital Signs Date Time Temp Pulse Resp B/P (MAP) Pulse Ox O2 Delivery O2 Flow Rate FiO2 09/13/20 11:26 74 95 09/13/20 08:25 36.1 20 113/79 (90) Room Air 09/12/20 06:47 1.00 09/11/20 10:22 21 General Appearance: No Apparent Distress, Obese HEENT: PERRL/EOMI, Pharynx Normal Respiratory: Lungs Clear, Normal Breath Sounds, No Respiratory Distress Cardiovascular: Regular Rate, Rhythm, No Edema, No Murmur Gastrointestinal: Normal Bowel Sounds, Non Tender, Soft Extremity: Normal Inspection, Non Tender, No Pedal Edema Skin: Normal Color, Warm/Dry Neurologic/Psychiatric: Alert, No Motor/Sensory Deficits, Other (dystonic movements) Allergies: Coded Allergies: No Known Drug Allergies (Unverified , 05/25/19) Copy Copies To 1: ANDRES DIAZ DO Discharge Summary Date of Admission Sep 11, 2020 at 03:20 Date of Discharge Discharge Date: Sep 13, 2020 Discharge Time: 11:41 Admission Diagnosis pneumonia due to COVID-19 Discharge Diagnosis (1) Pneumonia due to 2019 novel coronavirus Status: Acute RAJESH GABRIEL MD Sep 13, 2020 11:42
--- NOTE | 2020-09-13 11:44 | NUR ---
CM/SS finalized discharge. Plan: The patient will return home self care with the patient's daughter (caregiver). Home: The patient lives in an apartment in [place] with caregivers. The patient's daughter Rashad reports that the patient is able to ambulate at baseline but uses a walker. The patient does need assistance with most task according to the caregiver. Equipment: A walker. Unknown if there is other equipment. Home oxygen study was completed. The patient did not qualify at this time. 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 The patient's daughter and two sister's are paid caregivers. They work through [employer]. Home Health: The patient's daughter states that she has used home health before but they discharged off of service within 2 weeks. CM/SS asked if she wanted the patient to have home health or if she would benefit. Rashad declined home health at this time. Skilled NH: CM/SS spoke with Rashad regarding a short term skilled stay due to Rashad becoming sick as well. Rashad states that she would like to try it at home first. CM/SS informed her that patient could go straight into a intermediate from home if needed. No further needs.
--- NOTE | 2020-09-13 11:52 | Physical Therapy Evaluation ---
PT Evaluation-General Medical Diagnosis Admission Date Sep 11, 2020 at 03:20 Medical Diagnosis: Covid/hypoxia/COPD Onset Date: Sep 06, 2020 Therapy Diagnosis Therapy Diagnosis: debility Precautions Precautions/Isolations: Contact Isolation, Droplet Isolation, Fall Prevention Referral Physician: Sergio Reason for Referral: Evaluation/Treatment Medical History Pertinent Medical History: COPD, HTN, Hypothroidism Current History ER secondary to SOA Reviewed History: Yes Social History Home: Apartment Current Living Status: Alone (with good family support and caregiver per patient report) Prior Prior Level of Function SCALE: Activities may be completed with or without assistive devices. 6-Ldafendhfu-wosyiyp completes the activity by him/herself with no assistance from a helper. 5-Set-up or Clean-up Assistance-helper sets up or cleans up; patient completes activity. Slater assists only prior to or following the activity. 4-Supervision or Touching Assistance-helper provides verbal cues and/or touching/steadying and/or contact guard assistance as patient completes activity. Assistance may be provided throughout the activity or intermittently. 3-Partial/Moderate Assistance-helper does LESS THAN HALF the effort. Slater lifts, holds or supports trunk or limbs, but provides less than half the effort. 2-Substantial/Maximal Assistance-helper does MORE THAN HALF the effort. Slater lifts or holds trunk or limbs and provides more than half the effort. 9-Hvexexfdi-mlusrs does ALL the effort. Patient does none of the effort to complete the activity. Or, the assistance of 2 or more helpers is required for the patient to complete the activity. If activity was not attempted, code reason: 7-Patient Refused. 9-Not Applicable-not attempted and the patient did not perform the activity before the current illness, exacerbation or injury. 10-Not Attempted due to Environmental Limitations-(lack of equipment, weather restraints, etc.). 88-Not Attempted due to Medical Conditions or Safety Concerns. Bed Mobility: 5 Transfers (B,C,W/C): 5 Gait: 5 Stairs: 9 Indoor Mobility (Ambulation): Independent Prior Devices Use: Walker PT Evaluation-Current Subjective Patient reports she is going home and agrees to PT. Objective Patient Orientation: Normal For Age ROM/Strength ROM Lower Extremities bilateral LE WFL Strength Lower Extremities 4-/5 grossly bilateral LE Integumentary/Posture Integumentary refer to nursing notes Bowel Incontinence: No Bladder Incontinence: Yes Posture WFL Neuromuscular (Tone, Coordination, Reflexes) tardive dyskinesia Sensory Vision: Functional Hearing: Functional Transfers Sit to Lying (QC): 5 Lying to Sitting/Side of Bed(Q: 5 Sit to Stand (QC): 5 Chair/Bbl-jo-Pwlne Xfer(QC): 5 Toilet Transfer (QC): 5 Gait Does the Patient Walk?: Yes Mode of Locomotion: Walk Anticipated Mode of Locomotion: Walk Walk 10 feet (QC): 5 Walk 50 ft with 2 Turns(QC): 5 Walk 150 ft (QC): 5 Gait Assistive Device: FWW Comments/Gait Description functional gait sequence Balance Sitting Static: Normal Sitting Dynamic: Normal Standing Static: Good Standing Dynamic: Good Assessment/Needs 69 y.o. female, will dismiss to home with family and caregivers at [facility]. Rehab Potential: Fair PT Plan Treatment/Plan Treatment Plan: Discontinue PT, goals met Treatment Duration: Sep 13, 2020 Frequency: 1 time per week Estimated Hrs Per Day: .25 hour per day Patient and/or Family Agrees t: Yes Discharge Recommendations Therapy Discharge Recommendati: Home & Family Time/GCodes Time In: 1115 Time Out: 1133 Total Billed Treatment Time: 18 Total Billed Treatment 1 visit EVModC 18 min ESTEPHANIE BOYD PT Sep 13, 2020 11:52
[2020-09-13] MEDS ORDERED: ASCO500C17 PO (12:50)
[2020-09-13] MEDS ORDERED: ZINC50TA51 PO (12:50)
[2020-09-13] MEDS ORDERED: BENZ1TAB6 PO (12:50)
[2020-09-13] MEDS ORDERED: CALC-250 PO (12:50)
--- NOTE | 2020-09-13 12:51 | NUR ---
I SPOKE WITH THE PATIENT'S DAUGHTER SILVIA, SHE SENT ME A MED LIST AND I WENT THROUGH THE EXTERNAL MED HISTORY TO COMPLETE THIS MED REC. I DID THIS MED REC AFTER THE DISCHARGE WAS STARTED AND THE ONLY CHANGED I HAD TO MAKE WAS PT TAKES FUROSEMIDE 20MG ON TUESDAYS AND FRIDAYS INSTEAD OF DAILY AND I ADDED ON BENZTROPINE, VITAMIN C, VITAMIN D AND ZINC. OTC: VIT C VIT D ZINC ASPIRIN COLACE
[2020-09-13 16:18] VITALS: BP 144/62
[2020-09-13 18:00] VITALS: BP 144/62
--- NOTE | 2020-09-13 18:10 | NUR ---
"RD ASSESSMENT PMHx: hypercholesterolemia; HTN; hypothyroidism; DM; chronic constipation; PT INTERACTION: Received dietary consult for MST score. Note pt is currently in COVID isolation per chart review. Note all diet information for consult is per Lauren RAMOS or per chart review. Lauren states current appetite appears poor. Note avg PO intake 33% x2d, per chart reviwe. Lauren states no issues with nausea, vomiting, constipation, or diarrhea that she is aware of. Note last BM was 09/12, and pt not currently on bowel regimen per chart review. Note unable to determine current level of DM management, and unable to determine recent HbA1c, per chart review. Note recent 21# wt loss x7mon, per chart review. This is not significant wt loss. Note unable to complete visual assessment d/t isolation precautions. Given PO intake and wt hx, pt does not meet criteria for malnutrition per ASPEN guidelines. Est. kcal needs: 4475-8728 kcal | 15-20 kcal/kg Est. Pro needs: 62-77 g Pro | 0.8-1.0 g Pro/kg PES STATEMENT: Inadequate oral intake (NI-2.1) related to loss of appetite, as evidenced by chart review, and avg PO intake 33% x2d. INTERVENTION: Continue with current diet order of CHO 45g/m 1snack diet, with modifier of 2000mg Na restriction. Add Glucerna to meals TID, for increased kcal intake. Provides 220 kcal and 10 g Pro per serving. Did not offer diet education on DM management d/t isolation precautions. Will continue to follow and reassess as pt needs, intake, and status change. Carlos TAYLOR MS RD LD [phone] cell"
== END 2020-09-13 18:00 | disposition home or self-care (01) | DRG 177 ==
LOC: EDUNIT# 00:40 → ER 00:41 → 4TH 03:20
PROVIDERS: ADMIT Family Medicine; ATTEND Internal Medicine
PROC: XW033E5 Introduction of Remdesivir Anti-infective into Peripheral Vein, Percutaneous Approach, New Technology Group 5 (ICD-10-PCS; principal; 2020-09-11)
DX: U07.1 COVID-19 (principal); J12.82 Pneumonia due to coronavirus disease 2019; N39.0 Urinary tract infection, site not specified; R09.02 Hypoxemia; J44.9 Chronic obstructive pulmonary disease, unspecified; E03.9 Hypothyroidism, unspecified; E11.9 Type 2 diabetes mellitus without complications; I44.7 Left bundle-branch block, unspecified; E78.00 Pure hypercholesterolemia, unspecified; I10 Essential (primary) hypertension; K59.09 Other constipation; M54.9 Dorsalgia, unspecified; Z79.82 Long term (current) use of aspirin; Z79.84 Long term (current) use of oral hypoglycemic drugs; Z87.891 Personal history of nicotine dependence; Z73.0 Burn-out
CPT/HCPCS: 36415; 51701; 71045; 71275; 80053; 81000; 82962; 83605; 83615; 84145; 84484; 85007; 85025; 85027; 85379; 85610; 85652; 85730; 86141; 87040; 87077; 87088; 87804; 93005; 93041; 94640; 94664; 94760; 94761

== ENCOUNTER → 2021-10-04 | Outpatient (CLI) | payer MEDICARE, MEDICAID ==
[~2021-10-04] MED LIST changes: +ASCO500C17 PO; +BENZ1TAB6 PO; +BETH50TA2 PO; +CALC-250 PO; +DOCU-143 PO; +FLUO20CA42 PO; +FLUT1DIS28 IH; +LEVO75CA5 PO; +LIDO700A45 TP; -LISI10TA2 PO; +LISI10TA25 PO; -POTA10TA36 PO; +POTA10TA37 PO; +TIZA-169 PO; -TIZA2TAB7 PO; +ZINC50TA51 PO
--- NOTE | 2021-10-04 13:27 | Diagnostic Imaging Report ---
EXAMINATION: US Retroperitoneal Complete. TECHNIQUE: Multiple real-time grayscale images were obtained over the kidneys in various projections bilaterally. HISTORY: RETENTION AND INCONTINENCE COMPARISON: None available. FINDINGS: The right kidney demonstrates normal echogenicity and cortical thickness. The right kidney measures 7.4 x 4.7 x 5.6 cm. No hydronephrosis. Prominence of the right renal cortex from the mid kidney measuring up to 1.9 cm. The left kidney is poorly visualized with mild left hydronephrosis. There appears to be left renal cortical thinning. The left kidney measures 6.9 x 4.7 x 4.2 cm. The urinary bladder is normal. A right ureteral jet is not seen. Left ureteral jet is seen. The post void volume is 215 ml. IMPRESSION: 1. Mild left hydronephrosis with left renal atrophy. 2. Mild right renal atrophy without hydronephrosis. 3. Subtle area of cortical thickness seen along the right mid kidney which could represent a focal mass versus prominent column of Adan or dromedary hump. This could be further evaluated with dedicated MRI of the abdomen renal mass protocol. 4. Postvoid residual volume of 215 mL. Dictated by: Dictated on workstation # [id number]
== END ==
LOC: RAD 11:00
PROVIDERS: ATTEND Urology
DX: N13.30 Unspecified hydronephrosis (principal)
CPT/HCPCS: 76770

== ENCOUNTER → 2021-12-14 | Outpatient (CLI) | payer MEDICARE, MEDICAID ==
--- NOTE | 2021-12-14 16:57 | Diagnostic Imaging Report ---
INDICATION: Neck pain. TIME OF EXAM: 1:03 PM. Three views of the cervical spine were obtained. There is straightening of normal cervical lordotic curvature. There is anterolisthesis of C4 on C5. There is significant degenerative disc disease at C5-C6, C6-C7 and C7-T1 levels where there is complete loss of the disc space as well as marginal osteophyte formation. Prevertebral tissues are normal. No definite fracture is seen. Odontoid view is significantly limited. Patient was unable to completely straighten her neck. There appears to be some widening between the odontoid and the right lateral mass of C1 on the odontoid view. IMPRESSION: 1. Severe cervical spondylosis. 2. Abnormal widening between the right lateral mass of C1 and the odontoid although views are limited. Further evaluation with dedicated CT of the cervical spine is recommended for better characterization. Dictated by: Dictated on workstation # [id number]
== END ==
LOC: RAD 12:45
PROVIDERS: ATTEND Family Medicine
DX: M47.812 Spondylosis without myelopathy or radiculopathy, cervical region (principal); R22.1 Localized swelling, mass and lump, neck
CPT/HCPCS: 72040

== ENCOUNTER → 2021-12-21 | Outpatient (CLI) | payer MEDICARE, MEDICAID ==
--- NOTE | 2021-12-21 19:45 | Diagnostic Imaging Report ---
PROCEDURE: CT cervical spine without contrast. TECHNIQUE: Multiple contiguous axial images were obtained through the cervical spine without the use of intravenous contrast. Sagittal and coronal reformations were then performed. Auto Exposure Controls were utilized during the CT exam to meet ALARA standards for radiation dose reduction. INDICATION: Cervical spinal radiographs obtained for atypical C1-C2 relationship as seen at earlier radiograph. FINDINGS: The patient's head is rotated and tilted towards the right. Reviewed previous chest x-rays, chest CTs as well as brain MRI and in each of those exams over multiple time intervals this was the case. This results in widening of the right greater than left distance between the lateral masses of C1 and the odontoid. No craniocervical or C1-C2 dislocation. Images of the cervical spine are admittedly degraded by significant degree of motion artifact. No appreciable fracture or traumatic malalignment. There is severe degenerative changes to the discs, endplates and facets throughout the cervical spine. At C3-C4, this results in moderate canal and bi-foraminal stenosis. At C5-C6, there is severe canal and severe bi-foraminal stenosis. At C6-C7, there is severe canal and severe bi-foraminal bony stenoses. No fracture or paraspinal hemorrhage. Prevertebral space unremarkable. The craniocervical relationship degenerated but nonacute. IMPRESSION: Turning and tilting of the head to the right is believed to account for the atypical relationship of the C1 lateral masses and the odontoid. No fracture or dislocation. Motion degradation limits study sensitivity but we can confirm a severe degree of multilevel chronic bony spinal canal and foraminal stenoses with no appreciable fracture or paraspinal hemorrhage. Dictated by: Dictated on workstation # [id number]
== END ==
LOC: RAD 14:15
PROVIDERS: ATTEND Family Medicine
DX: M48.02 Spinal stenosis, cervical region (principal)
CPT/HCPCS: 72125